=== PATIENT | male | born 1965 | race Hispanic/Latino ===

== ENCOUNTER 2023-08-19 20:17 | Inpatient (IN) | payer OTHER, SELFPAY ==
--- NOTE | ~2023-08-19 | XR_ITS ---
EXAMINATION: XR chest 1V portable 08/19/2023 21:56 INDICATION: PICC line placement PROCEDURE: AP portable chest COMPARISON: No prior studies for comparison. FINDINGS: The lungs are clear. PICC line tip in the SVC. The cardiomediastinal silhouette is within n ormal limits. There are no pleural effusions. There is no pneumothorax suspected. IMPRESSION: 1: NO ACUTE CARDIOPULMONARY DISEASE. Reviewed, dictated and finalized at location A.
--- NOTE | ~2023-08-19 | CT_ITS ---
EXAMINATION: CT abdomen pelvis wo con DATE: 08/19/2023 22:25 INDICATION: Upper abdominal pain. Elevated lipase. Nausea and vomiting. TECHNIQUE: Computed tomography (CT) of the abdomen and pelvis was performed without intravenous contr ast. The dose-length product was 228.87 mGy-cm. Automated exposure control and iterative reconstructi on technique were employed. COMPARISON: None. FINDINGS: Lung bases unremarkable. Heart size normal. No significant pleural or pericardial effusion. Pancreas is thickened with surrounding fluid and inflammation, consistent with acute pancreatitis. T he liver, spleen, adrenal glands and kidneys are unremarkable. Nonobstructive bowel gas pattern. No s ignificant vascular abnormality. No lymphadenopathy. There are severe degenerative changes at L4-5 an d L5-S1 with deformity of the endplates at L4-5. Consider discitis/osteomyelitis in the appropriate c linical setting. IMPRESSION: 1. Acute pancreatitis. 2: Severe degenerative changes at L4-5 and L5-S1 with deformity of the endplates at L4-5. Consider di scitis/osteomyelitis in the appropriate clinical setting. If there is concern for discitis, further e valuation with MRI lumbar spine without and with contrast recommended. Reviewed, dictated and finalized at location A. IMPRESSION: 1. Acute pancreatitis. 2: Severe degenerative changes at L4-5 and L5-S1 with deformity of the endplate s at L4-5. Consider discitis/osteomyelitis in the appropriate clinical setting. If there is concern for discitis, further evaluation with MRI lumbar spine wit hout and with contrast recommended.
--- NOTE | ~2023-08-19 | XR_ITS ---
EXAMINATION: XR chest 1V portable DATE: 08/22/2023 06:35 INDICATION: Acute renal insufficiency TECHNIQUE: frontal view of the chest was obtained. COMPARISON: Chest radiograph dated 08/21/2023 FINDINGS: Improvement in prior mild pulmonary edema. There is some persistent opacities at the bilateral lower lung zones which includes a small left pleural effusion. No pneumothorax. The cardiomediastinal silho uette is normal. Right internal jugular central venous catheter and right upper extremity peripherall y inserted central venous catheter (PICC), both with distal tips at the superior cavoatrial junction. IMPRESSION: 1. Resolution of prior mild pulmonary edema with additional unchanged atelectasis and/or pneumonia at the bilateral lung bases. 2. Small left pleural effusion. Reviewed, dictated and finalized at location A. IMPRESSION: 1. Resolution of prior mild pulmonary edema with additional unchanged atelectas is and/or pneumonia at the bilateral lung bases. 2. Small left pleural effusion.
--- NOTE | ~2023-08-19 | XR_ITS ---
EXAMINATION: XR abdomen obstructive series DATE: 08/22/2023 19:50 INDICATION: Constipation. TECHNIQUE: Upright and supine views of the abdomen on 3 radiographs were obtained. COMPARISON: CT abdomen and pelvis 08/19/2023 FINDINGS: There are no dilated loops of bowel. There is a small volume of stool in the colon. No free intraperitoneal gas. There are airspace opacities at the lung bases, likely atelectasis. IMPRESSION: 1. Normal bowel gas pattern. Reviewed, dictated and finalized at location E.
--- NOTE | ~2023-08-19 | XR_ITS ---
EXAMINATION: XR chest port-a-cath/central DATE: 08/28/2023 15:49 INDICATION: Status post dialysis catheter placement TECHNIQUE: frontal view of the chest was obtained. COMPARISON: Chest radiograph dated 08/27/2023 FINDINGS: Interval placement of a large-bore dual-lumen left internal jugular central venous dialysis catheter with distal tip near the superior cavoatrial junction. There are hazy opacities at the bilateral mid to lower lungs which appear more extensive but less dense than on the prior study likely represent sm all posterior layering bilateral pleural effusions now extending more cephalad due to semierect posit ioning of the patient is post prior upright position. There are a few Raymond B-lines at the periphery of the right lower lung zone consistent with minimal pulmonary edema. No pneumothorax. The cardiomed iastinal silhouette is normal. IMPRESSION: 1. No pneumothorax post placement of a left internal jugular central venous dialysis catheter with di stal tip at the superior cavoatrial junction. 2. Mild pulmonary edema and small bilateral pleural effusions. Reviewed, dictated and finalized at location A. IMPRESSION: 1. No pneumothorax post placement of a left internal jugular central venous kayleen lysis catheter with distal tip at the superior cavoatrial junction. 2. Mild pulmonary edema and small bilateral pleural effusions.
--- NOTE | ~2023-08-19 | XR_ITS ---
Portable chest x-ray Comparison: 08/22/2023 Clinical History: Cough Findings: Stable right IJ line. There is discoid bibasilar atelectasis or scarring. Cardiomediastin al silhouette is stable. Bones and soft tissues are unremarkable. Impression: Bibasilar atelectasis or scarring. Stable right IJ line. Reviewed, dictated and finalized at [facility]. Impression: Bibasilar atelectasis or scarring. Stable right IJ line.
--- NOTE | ~2023-08-19 | US_ITS ---
EXAMINATION: US biopsy renal DATE: 08/26/2023 11:56 INDICATION: Acute renal insufficiency TECHNIQUE: The procedure including the risks, benefits, and alternatives was discussed with the patie nt. Risks discussed included bleeding and infection. The patient understood the risks and agreed to p roceed. A timeout was performed to verify the patient's name, date of , and procedure to be p erformed. The skin overlying the left kidney was prepped and draped in usual sterile fashion. Anest hetic was administered with 1% lidocaine subcutaneously. An 18 gauge core biopsy needle was then use d to obtain 3 core biopsy specimens under continuous sonographic guidance. The entry site was cleaned and dressed. There were no immediate complications. FINDINGS: Ultrasound images demonstrate the needle in the kidney. IMPRESSION: 1. Ultrasound-guided random left kidney core needle biopsy. Reviewed, dictated and finalized at location A.
--- NOTE | ~2023-08-19 | XR_ITS ---
EXAMINATION: XR fl guide central line place DATE: 08/28/2023 15:26 INDICATION: Dialysis catheter placement. TECHNIQUE: 2 intraoperative fluoroscopic views of the chest were obtained. I was not present. Fluoros copy exposure time was 41 seconds. COMPARISON: Chest single view 08/27/23 FINDINGS: There is a central line tip in superior vena cava. There is a new left internal jugular raquel tral venous catheter with tip at superior cavoatrial junction. IMPRESSION: 1. New central line tip at superior cavoatrial junction. Reviewed, dictated and finalized at location E.
--- NOTE | ~2023-08-19 | XR_ITS ---
EXAMINATION: XR chest 1V portable DATE: 08/21/2023 10:34 INDICATION: Temporary dialysis catheter placement TECHNIQUE: frontal view of the chest was obtained. COMPARISON: Chest radiograph dated 08/19/2023 FINDINGS: New large-bore right internal jugular central venous catheter with distal tip at the superior cavoatr ial junction. Unchanged right upper extremity peripherally inserted central venous catheter (PICC) ti p also at the level of the superior cavoatrial junction. Lung volumes are decreased. Mild increased interstitial pattern in the lower lung zones with a few pe ripheral Raymond B-lines at the lateral left mid to lower lung consistent with mild pulmonary edema. A dditional more focal mild airspace opacities at the bilateral lung bases which could represent more f ocal pulmonary edema, atelectasis or pneumonia. No pneumothorax or definitive pleural effusion. The c ardiomediastinal silhouette is normal. IMPRESSION: 1. Right upper extremity peripherally inserted central venous catheter and newly placed large-bore ri ght internal jugular central venous catheter, both with tips at the superior cavoatrial junction. 2. Mild increased interstitial pattern with some peripheral Raymond B-lines consistent with mild pulmo nary edema. 3. Mild airspace opacities at the bilateral lung bases which could represent more focal pulmonary franklyn ma, atelectasis or pneumonia. Reviewed, dictated and finalized at location B. IMPRESSION: 1. Right upper extremity peripherally inserted central venous catheter and newl y placed large-bore right internal jugular central venous catheter, both with t ips at the superior cavoatrial junction. 2. Mild increased interstitial pattern with some peripheral Raymond B-lines cons istent with mild pulmonary edema. 3. Mild airspace opacities at the bilateral lung bases which could represent mo re focal pulmonary edema, atelectasis or pneumonia.
--- NOTE | ~2023-08-19 | CT_ITS ---
Non-contrast Head CT History: Altered mental status Technique: Axial non-contrast imaging of the brain was performed. Dose reduction technique was used on this scan by utilizing automated exposure control and iterative reconstruction technique. The dose -length product (DLP) was 605.33 mGy-cm. Findings: There is no evidence of intracranial hemorrhage, mass lesion, or acute infarct. Brain par enchyma appears normal. The ventricles and subarachnoid spaces are normal in size. The calvarium ap pears normal. The visualized paranasal sinuses and mastoid air cells are clear. Impression: No significant abnormality seen. Reviewed, dictated and finalized at location . Impression: No significant abnormality seen.
--- NOTE | ~2023-08-19 | XR_ITS ---
Portable chest x-ray Comparison: 08/24/2023 Clinical History: Acute renal insufficiency Findings: Right IJ line is unchanged. There are small bilateral pleural effusions with worsening haz y bibasilar airspace disease. Cardiomediastinal silhouette is stable. Bones and soft tissues are unr emarkable. Impression: Worsening [id number] bibasilar pulmonary edema with increasing small bilateral pleural effusion s. Stable support line. Reviewed, dictated and finalized at location M. Impression: Worsening [id number] bibasilar pulmonary edema with increasing small bila teral pleural effusions. Stable support line.
--- NOTE | ~2023-08-19 | US_ITS ---
US right upper quadrant INDICATION: Pancreatitis PROCEDURE: Realtime right upper abdominal ultrasound. COMPARISON: No prior studies for comparison. FINDINGS: The pancreas is normal without focal mass or pancreatic ductal dilation. There is mild int rahepatic biliary dilatation. Otherwise, liver echotexture is unremarkable. There is normal directio nal flow in the portal vein. The gallbladder is normal without stones, gallbladder wall thickening or pericholecystic fluid. Comm on bile duct measures 3 mm. No sonographic Hernandez's sign. IMPRESSION: 1: Mild intrahepatic biliary dilatation. Reviewed, dictated and finalized at location A.
[2023-08-19 20:23] VITALS: BP 176/83; PULSE 113; RESP 18; TEMP 36.3; O2SAT 100
[2023-08-19 20:40] LABS: Basophils Absolute Auto 0.1 K/mm3 (0.0-0.1); Basophils Percent Auto 0.4 % (0.2-1.2); Eosinophils Absolute Auto 0.1 K/mm3 (0-0.3); Eosinophils Percent Auto 0.4 % (0-4.4); Hematocrit 34.4 % (42.0-52.0); Immature Granulocyte Absolute 0.08 K/mm3 (0.00-0.031); Immature Granulocyte Percent A 0.6 % (0-0.5); Lymphocytes Absolute Auto 0.88 K/mm3 (0.9-3.2); Lymphocytes Percent Auto 6.4 % (18.3-44.2); Mean Corpuscular Hemoglobin 30.9 pg (26-34); Mean Corpuscular Volume 96.6 fl (80-100); Mean Platelet Volume 10.4 fl (7.4-10.4); Monocytes Absolute Auto 1.4 K/mm3 (0.1-0.6); Monocytes Percent Auto 10.1 % (2.6-8.5); Neutrophils Absolute Auto 11.3 K/mm3 (1.3-6.7); Neutrophils Percent Auto 82.1 % (45.5-73.1); Platelet Count Result 263 k/mm3 (150-375); Red Blood Count 3.56 M/mm3 (4.6-6.20); Red Cell Distribution Width 15.9 % (11.5-14.5); White Blood Count 13.8 K/mm3 (4.5-10.0)
[2023-08-19 20:54] LABS: Alanine Aminotransferase 20 U/L (6-50); Albumin Level 4.7 g/dL (3.5-5.1); Alkaline Phosphatase 98 U/L (38-126); Anion Gap 27 mmol/L (4-12); Aspartate Amino Transferase 28 U/L (17-59); Bilirubin,Total 0.5 mg/dL (0.2-1.3); Blood Urea Nitrogen 90 mg/dL (9-20); Calcium 10.2 mg/dL (8.4-10.2); Carbon Dioxide 6 mmol/L (22-30); Chloride 99 mmol/L (98-107); Glucose 67 mg/dL (65-110); Potassium 6.5 mmol/L (3.4-5.0); Sodium 132 mmol/L (137-145)
[2023-08-19 21:01] LABS: Estimated CRCL calculation 4 ml/min; Estimated Glomerular Filt Rate 3
[2023-08-19 21:20] LABS: Lipase 8159 U/L (23-300)
--- NOTE | 2023-08-19 21:21 | ECG_ITS ---
SEE SCANNED COPY FOR CONFIRMED REPORT MTDD
[2023-08-19 21:32] VITALS: BP 173/90; PULSE 110; RESP 23; O2SAT 100
--- NOTE | 2023-08-19 21:34 | ED_ITS ---
HPI - Abdominal Pain General Chief Complaint: Abdominal Pain Stated Complaint: abd pain, weakness Time Seen by Provider: 08/19/23 21:06 Source: patient Mode of arrival: ambulatory Limitations: no limitations History of Present Illness HPI narrative: Patient is a 57-year-old male who presents to the ED with report of abdominal pain and nausea/vomiting. Patient reports over the last 2-3 days, he has had pain across his upper abdomen. He has had profuse nausea with vomiting and dry heaving, unable to keep down any food or drink. Denies history of similar pain. Patient is currently in the area visiting from [facility]. He is a daily drinker, but states he has not drank any alcohol since Thursday. Denies previous history of withdrawal symptoms or seizures. Denies previous history of pancreatitis. He does also complain of chills, tremors, denies known fever. Denies diarrhea, constipation, rectal bleeding, melena. Patient has a PICC line in his right upper extremity due to history of osteomyelitis in his right pelvis from previous back surgery, has been receiving IV vancomycin for the last 1 month. States he finished his last infusion earlier this week. Patient did have outpatient labs drawn on Thursday and was able to show me this on his computer. Creatinine at that time was 5.7. Anion gap of 22. Bicarb 17. States he was unable to follow-up with his primary care doctor at that time due to going out of town. Related Data Allergies Allergy/AdvReac Type Severity Reaction Status Date / Time No Known Allergies Allergy Verified 08/19/23 21:33 Review of Systems Review of Systems: CONSTITUTIONAL: See HPI CARDIOVASCULAR: Denies chest pain. RESPIRATORY: Denies dyspnea. GASTROINTESTINAL: See HPI. GENITOURINARY: Denies dysuria or hematuria. MUSCULOSKELETAL: Denies back pain, extremity pain, myalgia. NEUROLOGIC: See HPI All systems reviewed & are unremarkable except as noted in HPI and below Exam Narrative: GENERAL: Ill appearing, well-nourished, non-toxic, in no acute distress. HEAD: Normocephalic, atraumatic. RESPIRATORY: Airway patent, respirations nonlabored but tachypneic. Clear to auscultation bilaterally, no rales, rhonchi, wheezing. CARDIOVASCULAR: Tachycardic with regular rhythm without murmurs, rubs, or gallops. ABDOMINAL: Soft, diffuse tenderness throughout upper abdomen, nondistended. Normoactive BS. MUSCULOSKELETAL: Moves all extremities. No gross deformities. PICC line in RUE. SKIN: Warm, dry, normal color. NEURO: A&O X3. Speech clear. Cranial nerves II-XII grossly intact. Diffuse tremor of extremities versus rigors. PSYCHIATRIC: Appropriate mood and affect. Normal interaction. Course Vital Signs Vital signs: Vital Signs Temperature 97.3 F L 08/19/23 20:23 Pulse Rate 113 H 08/19/23 20:23 Respiratory Rate 18 08/19/23 20:23 Blood Pressure 176/83 H 08/19/23 20:23 Pulse Oximetry 100 08/19/23 20:23 Oxygen Delivery Room Air 08/19/23 20:23 Temperature 97.3 F L 08/19/23 20:23 Pulse Rate 115 H 08/20/23 01:48 Respiratory Rate 12 08/20/23 01:48 Blood Pressure 158/78 H 08/20/23 01:48 Pulse Oximetry 98 08/20/23 01:48 Oxygen Delivery Room Air 08/19/23 20:23 MDM - Abdominal Pain MDM Narrative Medical decision making narrative: Patient presented to ED with several day history of upper abdominal pain, nausea, vomiting tremors. History of alcoholism. Patient tachycardic and tachypneic upon my evaluation. Oxygen stable on room air. He does appear rigorous. Laboratory studies concerning for acute renal failure with creatinine of 16.5, BUN 90. Hyperkalemia at 6.5. Bicarb markedly low at 6. Anion gap of 27. Blood glucose 67. Pattern Keeper on outpatient labs 08/17/23 was 5.7. ABG with metabol ic acidosis, pH 7.223, pCO2 19.2, bicarb 7.7. Lipase is elevated to 8159. Consistent with clinical picture. Patient reports he has not drank alcohol since Thursday. He denies previous history of withdrawal symptoms. He does appear tremulous in the ED. Will be given Ativan, CIWA protocol initiated. Thiamine initiated. Alcohol level here negative. CT abdomen pelvis is consistent with acute pancreatitis. Also shows evidence of known osteomyelitis to right pelvic region. Patient has recently completed a month long course of vancomycin through a PICC line in his right upper extremity. Hyper K treatment ordered. Patient given 2 L of fluid, 2 amps of D50, 10 units insulin, calcium gluconate, Lokelma, 2 amps of bicarb, hour long albuterol Tx. Repeat CMP post hyper K treatment, potassium 5.1, bicarb 8, anion gap 23, creatinine 15.7, BUN 85. Patient given 2 L of fluid in the ED, started on continuous normal saline at 150 cc/hour. No urine output thus far. Bladder scan around <75mL. Foster catheter placed for I&O monitoring. Discussed case with Dr. Carmona, nephrology, will consult. Feel patient can be admitted here. No indication for emergent dialysis at this time. Advised to start D5 half-normal saline with 75 mEq of bicarb at 125 cc/hour. Discussed case with Dr. Mendoza, hospitalist, accepted patient for admission. Medical Records Attestation: I reviewed the patient's medical records. Lab Data Attestation: I reviewed the patient's lab results. 08/19/23 20:32 08/20/23 00:55 Labs: Lab Results 08/19/23 08/19/23 08/19/23 Range/Units 20:31 20:32 21:56 WBC 13.8 H (4.5-10.0) K/mm3 RBC 3.56 L (4.6-6.20) M/mm3 Hgb 11.0 L (14.0-18.0) g/dL Hct 34.4 L (42.0-52.0) % MCV 96.6 (80-100) fl MCH 30.9 (26-34) pg MCHC 32.0 (32-36) g/dl RDW 15.9 H (11.5-14.5) % Plt Count 263 (150-375) k/mm3 MPV 10.4 (7.4-10.4) fl Immature Gran % (Auto) 0.6 H (0-0.5) % Neut % (Auto) 82.1 H (45.5-73.1) % Lymph % (Auto) 6.4 L (18.3-44.2) % Beckham % (Auto) 10.1 H (2.6-8.5) % Eos % (Auto) 0.4 (0-4.4) % Baso % (Auto) 0.4 (0.2-1.2) % Lymph # (Auto) 0.88 L (0.9-3.2) K/mm3 Beckham # (Auto) 1.4 H (0.1-0.6) K/mm3 Eos # (Auto) 0.1 (0-0.3) K/mm3 Baso # (Auto) 0.1 (0.0-0.1) K/mm3 Abs Immat Gran (auto) 0.08 H (0.00-0.031) K/mm3 Absolute Neuts (auto) 11.3 H (1.3-6.7) K/mm3 Absolute Nucleated RBC 0.000 (0.0-0.012) K/mm3 Nucleated RBC % 0.0 (0.0-0.2) % PT 15.6 H (11.1-14.7) Seconds INR 1.2 APTT 28.3 (22.3-36.8) Seconds Methemoglobin 0.3 (0-1.5) %THb Sodium 132 L (137-145) mmol/L Potassium 6.5 H* (3.4-5.0) mmol/L Chloride 99 (98-107) mmol/L Carbon Dioxide 6 L (22-30) mmol/L Anion Gap 27 H (4-12) mmol/L BUN 90 H (9-20) mg/dL Creatinine 16.50 H (0.7-1.3) mg/dL Estim Creat Clear Calc 4 ml/min Estimated GFR 3 L (59 - ) Glucose 67 (65-110) mg/dL POC Capillary Glucose (65-105) mg/dl Lactic Acid (0.7-2.0) mmol/L Calcium 10.2 (8.4-10.2) mg/dL Phosphorus 6.7 H (2.5-4.5) mg/dL Magnesium 2.5 H (1.6-2.3) mg/dL Total Bilirubin 0.5 (0.2-1.3) mg/dL AST 28 (17-59) U/L ALT 20 (6-50) U/L Alkaline Phosphatase 98 (38-126) U/L Total Protein 8.0 (6.3-8.2) g/dL Albumin 4.7 (3.5-5.1) g/dL Lipase 8159 H (23-300) U/L Urine Color Urine Appearance Urine pH Ur Specific [place] Urine Protein Urine Glucose (UA) Urine Ketones Ur Blood (Man) Urine Nitrate Urine Bilirubin Urine Urobilinogen Leukocyte Esterase Rfl Ethyl Alcohol < 10 (<10) mg/dL 08/19/23 08/19/23 08/20/23 Range/Units 22:39 23:27 00:55 WBC (4.5-10.0) K/mm3 RBC (4.6-6.20) M/mm3 Hgb (14.0-18.0) g/dL Hct (42.0-52.0) % MCV (80-100) fl MCH (26-34) pg MCHC (32-36) g/dl RDW (11.5-14.5) % Plt Count (150-375) k/mm3 MPV (7.4-10.4) fl Immature Gran % (Auto) (0-0.5) % Neut % (Auto) (45.5-73.1) % Lymph % (Auto) (18.3-44.2) % Beckham % (Auto) (2.6-8.5) % Eos % (Auto) (0-4.4) % Baso % (Auto) (0.2-1.2) % Lymph # (Auto) (0.9-3.2) K/mm3 Beckham # (Auto) (0.1-0.6) K/mm3 Eos # (Auto) (0-0.3) K/mm3 Baso # (Auto) (0.0-0.1) K/mm3 Abs Immat Gran (auto) (0.00-0.031) K/mm3 Absolute Neuts (auto) (1.3-6.7) K/mm3 Absolute Nucleated RBC (0.0-0.012) K/mm3 Nucleated RBC % (0.0-0.2) % PT (11.1-14.7) Seconds INR APTT (22.3-36.8) Seconds Methemoglobin (0-1.5) %THb Sodium 134 L (137-145) mmol/L Potassium 5.1 H (3.4-5.0) mmol/L Chloride 103 (98-107) mmol/L Carbon Dioxide 8 L (22-30) mmol/L Anion Gap 23 H (4-12) mmol/L BUN 85 H (9-20) mg/dL Creatinine 15.70 H (0.7-1.3) mg/dL Estim Creat Clear Calc 4 ml/min Estimated GFR 3 L (59 - ) Glucose 109 (65-110) mg/dL POC Capillary Glucose 226 H (65-105) mg/dl Lactic Acid 3.3 H (0.7-2.0) mmol/L Calcium 9.3 (8.4-10.2) mg/dL Phosphorus (2.5-4.5) mg/dL Magnesium (1.6-2.3) mg/dL Total Bilirubin 0.4 (0.2-1.3) mg/dL AST 21 (17-59) U/L ALT 18 (6-50) U/L Alkaline Phosphatase 78 (38-126) U/L Total Protein 6.0 L (6.3-8.2) g/dL Albumin 3.9 (3.5-5.1) g/dL Lipase (23-300) U/L Urine Color Urine Appearance Urine pH Ur Specific [place] Urine Protein Urine Glucose (UA) Urine Ketones Ur Blood (Man) Urine Nitrate Urine Bilirubin Urine Urobilinogen Leukocyte Esterase Rfl Ethyl Alcohol (<10) mg/dL 08/20/23 08/20/23 08/20/23 Range/Units 01:21 02:54 03:07 WBC (4.5-10.0) K/mm3 RBC (4.6-6.20) M/mm3 Hgb (14.0-18.0) g/dL Hct (42.0-52.0) % MCV (80-100) fl MCH (26-34) pg MCHC (32-36) g/dl RDW (11.5-14.5) % Plt Count (150-375) k/mm3 MPV (7.4-10.4) fl Immature Gran % (Auto) (0-0.5) % Neut % (Auto) (45.5-73.1) % Lymph % (Auto) (18.3-44.2) % Beckham % (Auto) (2.6-8.5) % Eos % (Auto) (0-4.4) % Baso % (Auto) (0.2-1.2) % Lymph # (Auto) (0.9-3.2) K/mm3 Beckham # (Auto) (0.1-0.6) K/mm3 Eos # (Auto) (0-0.3) K/mm3 Baso # (Auto) (0.0-0.1) K/mm3 Abs Immat Gran (auto) (0.00-0.031) K/mm3 Absolute Neuts (auto) (1.3-6.7) K/mm3 Absolute Nucleated RBC (0.0-0.012) K/mm3 Nucleated RBC % (0.0-0.2) % PT (11.1-14.7) Seconds INR APTT (22.3-36.8) Seconds Methemoglobin (0-1.5) %THb Sodium (137-145) mmol/L Potassium (3.4-5.0) mmol/L Chloride (98-107) mmol/L Carbon Dioxide (22-30) mmol/L Anion Gap (4-12) mmol/L BUN (9-20) mg/dL Creatinine (0.7-1.3) mg/dL Estim Creat Clear Calc ml/min Estimated GFR (59 - ) Glucose (65-110) mg/dL POC Capillary Glucose 100 (65-105) mg/dl Lactic Acid Pending (0.7-2.0) mmol/L Calcium (8.4-10.2) mg/dL Phosphorus (2.5-4.5) mg/dL Magnesium (1.6-2.3) mg/dL Total Bilirubin (0.2-1.3) mg/dL AST (17-59) U/L ALT (6-50) U/L Alkaline Phosphatase (38-126) U/L Total Protein (6.3-8.2) g/dL Albumin (3.5-5.1) g/dL Lipase (23-300) U/L Urine Color Pending Urine Appearance Pending Urine pH Pending Ur Specific [place] Pending Urine Protein Pending Urine Glucose (UA) Pending Urine Ketones Pending Ur Blood (Man) Pending Urine Nitrate Pending Urine Bilirubin Pending Urine Urobilinogen Pending Leukocyte Esterase Rfl Pending Ethyl Alcohol (<10) mg/dL Urine Characteristics Cloudy ABG Data ABG results: 08/19/23 21:56 Puncture Site Left radial ABG pH 7.223 L* ABG pCO2 19.2 L* ABG pO2 95.7 ABG PO2/FiO2 Ratio 4.56 ABG HCO3 7.7 L ABG O2 Saturation 96.2 ABG O2 Content 16.4 ABG Base Excess -17.9 A-a Gradient 31.0 Oxyhemoglobin 95.5 Carboxyhemoglobin 0.3 Reduced Hemoglobin 3.9 Total Hemoglobin 12.1 O2 Delivery Device Not Reportable O2 Liters/Min Not Reportable FiO2 21 Attestation: I personally reviewed and interpreted this ABG as follows: Imaging Data Attestation: I personally reviewed and interpreted this imaging study as follows: Radiologist's impression: ITS Impressions Chest X-Ray 08/19/23 22:00 IMPRESSION: 1: NO ACUTE CARDIOPULMONARY DISEASE. Abdomen/Pelvis CT 08/19/23 22:34 IMPRESSION: 1. Acute pancreatitis. 2: Severe degenerative changes at L4-5 and L5-S1 with deformity of the endplates at L4-5. Consider discitis/osteomyelitis in the appropriate clinical setting. If there is concern for discitis, further evaluation with MRI lumbar spine without and with contrast recommended. ECG Data EKG #1: Attestation: I personally reviewed and interpreted this ECG as follows: ECG completion date: 08/19/23 ECG completion time: 21:40 tachycardia (105), sinus rhythm and non-specific ST changes Discharge Plan Discharge Clinical Impression: Acute renal failure, Metabolic acidosis, Acute hyperkalemia, Acute pancreatiti s, Alcoholism, Lactic acidosis Patient Disposition: Still a Patient Condition: Serious
[2023-08-19 21:42] LABS: Ethanol < 10 mg/dL (<10); Magnesium 2.5 mg/dL (1.6-2.3); Phosphorus 6.7 mg/dL (2.5-4.5)
[2023-08-19 21:47] LABS: INR 1.2; Prothrombin Time 15.6 Seconds (11.1-14.7)
[2023-08-19 21:48] LABS: Partial Thromboplastin Time 28.3 Seconds (22.3-36.8)
[2023-08-19 22:14] LABS: Base Excess ABG -17.9 mEq/l (+/-2.0); Carboxyhemoglobin 0.3 % THb (0-2.0); Fractional Inspired Oxygen 21 %; HCO3 ABG 7.7 mEq/l (22.0-26.0); Methemoglobin ABG 0.3 %THb (0-1.5); Oxygen Content ABG 16.4 %vol (16.0-22.0); Oxygen Saturation ABG 96.2 % (95.0-100.0); Oxyhemoglobin 95.5 % THb (90.0-100.0); PO2 ABG 95.7 mmHg (80.0-100.0); PO2 FiO2 Ratio Arterial Blood 4.56 %; Reduced Hemoglobin 3.9 %THb (0-5.0); Total Hemoglobin 12.1 g/dL (12.0-18.0)
[2023-08-19 22:16] LABS: Modified Allen's Test Pass; PCO2 ABG 19.2 mmHg (35.0-45.0); Site Drawn LEFT RADIAL
[2023-08-19 22:17] LABS: pH ABG 7.223 (7.350-7.450)
[2023-08-19] MEDS: ALBUTEROL SULFATE NEB 2.5 MG/3 ML INH 10 MG INHALATION (22:22)
[2023-08-19 22:30] VITALS: BP 152/77; PULSE 122; RESP 13; O2SAT 100
[2023-08-19] MEDS: SODIUM ZIRCONIUM CYCLOSILICATE 10 GM POWD.PACK PO (22:45)
[2023-08-19] MEDS: ONDANSETRON INJ 4 MG/2 ML VIAL IV PUSH (22:45)
[2023-08-19] MEDS: SODIUM BICARBONATE 8.4% 50 MEQ/50 ML SYRINGE IV PUSH ×2 (22:49→22:54)
[2023-08-19] MEDS: DEXTROSE 50% 25 GM/50 ML SYRINGE IV PUSH ×2 (22:49→22:54)
[2023-08-19] MEDS: SODIUM CHLORIDE 0.9% IV 1,000 ML 999 ML IV CONT ×2 (22:58)
[2023-08-19] MEDS: CALCIUM GLUCONATE 1,000 MG/10 ML VIAL 1000 MG IV PUSH (22:58)
[2023-08-19] MEDS: LORazepam INJ (*CRX) 2 MG/ML VIAL IV PUSH (23:05)
[2023-08-19] MEDS: INSULIN HUMAN REGULAR (*BKC) 100 UNITS/ML 10 UNITS IV PUSH (23:06)
[2023-08-19] MEDS: THIAMINE 500 MG/NS 100 ML 500 MG/100 ML BAG 200 MG IVPB (23:18)
[2023-08-19 23:24] LABS: Lactic Acid Reflex 3.3 mmol/L (0.7-2.0)
[2023-08-19 23:31] LABS: Glucose Point of Care 226 mg/dl (65-105)
[2023-08-20] VITALS (14 sets, daily range): BP systolic 136–165; BP diastolic 65–80; PULSE 106–122; RESP 12–24; TEMP 36.3–36.7; O2SAT 96–100; BMI 24.7
[2023-08-20 01:20] LABS: Alanine Aminotransferase 18 U/L (6-50); Albumin Level 3.9 g/dL (3.5-5.1); Alkaline Phosphatase 78 U/L (38-126); Anion Gap 23 mmol/L (4-12); Aspartate Amino Transferase 21 U/L (17-59); Bilirubin,Total 0.4 mg/dL (0.2-1.3); Blood Urea Nitrogen 85 mg/dL (9-20); Calcium 9.3 mg/dL (8.4-10.2); Carbon Dioxide 8 mmol/L (22-30); Chloride 103 mmol/L (98-107); Glucose 109 mg/dL (65-110); Potassium 5.1 mmol/L (3.4-5.0); Sodium 134 mmol/L (137-145)
[2023-08-20 01:23] LABS: Glucose Point of Care 100 mg/dl (65-105)
[2023-08-20] MEDS: SODIUM CHLORIDE 0.9% IV 1,000 ML 150 ML IV CONT (01:40)
[2023-08-20 01:57] LABS: Estimated CRCL calculation 4 ml/min; Estimated Glomerular Filt Rate 3
[2023-08-20 02:08] LABS: Reflex Lactic Acid Yes or No Add Lactic
[2023-08-20] MEDS: SODIUM BICARBONATE 8.4% 75 MEQ in DEXTROSE 5%/0.45% SOD CHL 1,000 ML 125 MEQ IV CONT ×3 (02:38→19:15)
[2023-08-20 03:14] LABS: Glucose Point of Care 75 mg/dl (65-105)
[2023-08-20 03:22] LABS: Appearance Urine Clear (Clear); Bacteria Urine None Seen /hpf; Bilirubin Urine Negative (Negative); Blood Urine 1+ (Negative); Color Urine Yellow (Yellow); Glucose Urine UA Negative (Negative); Ketones Urine 1+ mg/dL (Negative); Leukocyte Esterase Ur Negative LEU/UL (Negative); Need Manual Microscopic Reviewed; Nitrate Urine Negative (Negative); Protein Urine 4+ mg/dL (Negative); RBC Urine 0-2 /hpf (0-2); Specific Grav Ur 1.015 (1.001-1.035); Squamous Epithelial Cell Urine None Seen /hpf (Few); Urobilinogen Urine 0.2 mg/dL (<2.0); WBC Urine 0-5 /hpf (0-3)
[2023-08-20 03:24] LABS: Add Urine Microscopic? YES
--- NOTE | 2023-08-20 03:35 | PC.NURSE ---
Attempted to call report. Was told nurse will have to call me back.
[2023-08-20 03:53] LABS: Lactic Acid 5.4 mmol/L (0.7-2.0)
--- NOTE | 2023-08-20 04:28 | ADMGEN ---
This patient, Camacho Sidhu, was admitted to IMU Room 204-01 at 0420 on 08/19/2023. Patient/family oriented to hospital policies and general routines including ID bracelet, bed and alarms, visiting hours, pain management, procedures, bathroom and other care routines, personal items, smoking policy, room service/diet, and visiting hours. Information on how to activate the Rapid Response Team has been discussed. Patient/Family are encouraged to report perceived risks to care and to ask questions if they do not understand what they are told or what they should do.
[2023-08-20 04:31] LABS: Glucose Point of Care 77 mg/dl (65-105)
[2023-08-20 05:08] LABS: Basophils Percent Auto 0.2 % (0.2-1.2); Eosinophils Percent Auto 0.3 % (0-4.4); Hematocrit 31.7 % (42.0-52.0); Hemoglobin 9.9 g/dL (14.0-18.0); Immature Granulocyte Absolute 0.07 K/mm3 (0.00-0.031); Immature Granulocyte Percent A 0.5 % (0-0.5); Lymphocytes Absolute Auto 0.67 K/mm3 (0.9-3.2); Lymphocytes Percent Auto 5.2 % (18.3-44.2); Mean Corpuscular HGB Conc 31.2 g/dl (32-36); Mean Corpuscular Hemoglobin 30.8 pg (26-34); Mean Corpuscular Volume 98.8 fl (80-100); Mean Platelet Volume 10.3 fl (7.4-10.4); Monocytes Absolute Auto 1.5 K/mm3 (0.1-0.6); Monocytes Percent Auto 11.6 % (2.6-8.5); Neutrophils Absolute Auto 10.6 K/mm3 (1.3-6.7); Neutrophils Percent Auto 82.2 % (45.5-73.1); Platelet Count Result 214 k/mm3 (150-375); Red Blood Count 3.21 M/mm3 (4.6-6.20); Red Cell Distribution Width 15.9 % (11.5-14.5); White Blood Count 12.9 K/mm3 (4.5-10.0)
[2023-08-20 05:17] LABS: Alveolar/Arterial O2 Gradient 31.3 mmHg; Base Excess ABG -17.5 mEq/l (+/-2.0); Carboxyhemoglobin 0.2 % THb (0-2.0); Fractional Inspired Oxygen 21 %; HCO3 ABG 9.1 mEq/l (22.0-26.0); Methemoglobin ABG 0.4 %THb (0-1.5); Oxygen Saturation ABG 94.9 % (95.0-100.0); Oxyhemoglobin 94.5 % THb (90.0-100.0); PCO2 ABG 24.7 mmHg (35.0-45.0); PO2 ABG 88.9 mmHg (80.0-100.0); PO2 FiO2 Ratio Arterial Blood 4.23 %; Reduced Hemoglobin 4.9 %THb (0-5.0); Total Hemoglobin 11.2 g/dL (12.0-18.0)
[2023-08-20 05:20] LABS: Device ROOM AIR; Modified Allen's Test Pass; Site Drawn LEFT RADIAL; pH ABG 7.185 (7.350-7.450)
[2023-08-20] MEDS: chlordiazePOXIDE (*CRX) 25 MG CAPSULE 50 MG PO (05:23)
[2023-08-20] MEDS: MORPHINE SULFATE (*CRX) 4 MG/ML INJ IV PUSH ×2 (05:24→09:16)
[2023-08-20] MEDS: CENTRAL LINE FLUSH 10 ML IV PUSH ×3 (05:24→21:25)
--- NOTE | 2023-08-20 05:26 | PC.NURSE ---
Pt states that he wants his friends, Radha and Moses to make his medical decisions if he is unable to. Staff explained that next of kin should be the decision maker. Pt states that his son, Erasmo, is his next of kin. States that his son would not understand pt's medical condition. States that his son and friends are well acquainted and can make decisions together. Chart updated with emergency contact information.
[2023-08-20 05:27] LABS: Alanine Aminotransferase 17 U/L (6-50); Alkaline Phosphatase 86 U/L (38-126); Anion Gap 27 mmol/L (4-12); Aspartate Amino Transferase 21 U/L (17-59); Bilirubin,Total 0.5 mg/dL (0.2-1.3); Blood Urea Nitrogen 87 mg/dL (9-20); Calcium 9.8 mg/dL (8.4-10.2); Carbon Dioxide 6 mmol/L (22-30); Chloride 104 mmol/L (98-107); Creatine Kinase 54 U/L (55-170); Glucose 79 mg/dL (65-110); Potassium 5.4 mmol/L (3.4-5.0); Sodium 137 mmol/L (137-145)
--- NOTE | 2023-08-20 05:37 | PC.NURSE ---
patient and RN attempted to call friend Lupe via patient's cell phone to update her on his stay. Lupe's cell went to voicemail that was full.
[2023-08-20 05:48] LABS: Estimated CRCL calculation 4 ml/min; Estimated Glomerular Filt Rate 3
[2023-08-20 05:53] LABS: Creatinine Urine 68.1 mg/dL; Urea Random Urine 284 MG/DL
[2023-08-20 05:55] LABS: Lipase 12326 U/L (23-300)
[2023-08-20 05:55] LABS: Sodium Urine Random 73 meq/L
[2023-08-20 06:02] LABS: Total Protein Urine Random > 600 mg/dL
[2023-08-20 06:08] LABS: Hepatitis B Surface Antigen Negative (Negative)
[2023-08-20 06:25] LABS: Hepatitis B Surface Anti Res Negative
[2023-08-20 06:36] LABS: Glucose Point of Care 89 mg/dl (65-105)
[2023-08-20 06:54] LABS: MRSA (PCR) NOT DETECTED (NOT DETECTE)
[2023-08-20 07:46] LABS: Eosinophil Urine None Seen % (None Seen); Urine Eos QC 2nd Tech Confirmed
[2023-08-20] MEDS: THIAMINE HCL 200 MG/2 ML VIAL 100 MG IV PUSH (09:17)
--- NOTE | 2023-08-20 09:53 | P.HP_ITS ---
H&P: HPI History of Present Illness Date/Time: 08/20/23 09:53 Chief Complaint: Abdominal pain Narrative: 57yo male with alcoholism, HTN, DM and currently undergoing treatment for osteomyelitis who presents with abdominal pain. Patient is alert and oriented but has mild confusion when trying to provide a linear history. He is from [facility] and is in this area for work. He states that he feels ?foggy? but d enies feeling confused. Patient underwent microscopic lumbar back surgery L5-S1 in March 2023 due to bilateral sciatic nerve pain. Patient did have a fall at home but it is unclear on exactly when this was. No fractures noted but he developed increasing pain in the right lower extremity radiating from pelvic area and back. The left leg pain has improved. He was treated with gabapentin 300 mg t.i.d.. He had does have diabetes with neuropathic pain as well. Pain continue to worsen in the back and right leg any underwent further evaluation. He was found have lumbar osteomyelitis and was hospitalized in June. He ultimately had a PICC line placed and was discharged on vancomycin and cefepime. Antibiotics were supposed and on August 14 but he has missed a few doses due to his work. 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 Patient also has heavy alcohol use. He has been drinking heavily since he was young. No history of of withdrawals. No history of seizures. He normally drinks 1.5L of spirits per day but has cut back since starting the IV abx but still binge drinks. He is also on marijuana gummies but denies other drug use. His last drink was 08/16/23. He began to have abdominal pain about 4-5 days ago with nausea, vomiting, dry heaves, diarrhea, chill and tremors. Occasional red blood in the palomo but this is long standing and intermittent. No hematochezia or hemorrhoids. Patient did have outpatient labs on with Creatinine 5.7.? Anion gap of 22.? Bicarb 17.?No hx of kidney disease. He presented to the ED for evaluation. . In the ED, patient was afebrile. Blood pressure 176/83 pulse 113. Was not hypoxic. Lactic acid was 5.4. WBC 13.8 K, INR 1.2, sodium 132, potassium 6.5 with BUN 90 and creatinine 16.5. Lipase was elevated and has climbed to 12 K. LFTs normal. Total CK 54. ABG 7.22/ on room air. UA shows 14+ blood, 1+ ketones and 1+ blood otherwise negative. Protein to creatinine ratio is 8g, urine eosinophils were negative. MRSA nasal swab was negative. Alcohol is less than 10. Chest x-ray was clear. CT of the abdomen pelvis showed acute pancreatitis and severe degenerative changes at L4-5 and L5-1 with deformity at the endplates of L4-5 consistent with diskitis/osteomyelitis. Liver was normal. No mention of the gallbladder. CT the brain showed no significant abnormalities. Patient was treated appropriately for the hyperkalemia. Was started on IV fluids with bicarb. Ativan given once. Thiamine started. He was admitted for further care. Review of Systems Review of Systems: All systems reviewed & are unremarkable except as noted in HPI and below PMFSH Past Medical History Medical History (Updated 08/20/23 @ 10:44 by Levi Arana MD) Alcoholism Diabetes mellitus Diabetic neuropathy Essential hypertension Hx of osteomyelitis Lumbar spine Jun 2023 Hyperlipidemia Sciatica associated with disorder of lumbar spine Surgical History Surgical History (Updated 08/20/23 @ 10:22 by Lvei Arana MD) History of lumbar surgery Family History Family History (Updated 08/20/23 @ 10:30 by Levi Arana MD) Mother Diabetes mellitus Father Alcoholism Social History Social History (Updated 08/20/23 @ 10:29 by Levi Arana MD) Social History: Alcohol use as above. He lives in [facility]. He is . He lives alone. He has dogs. He wishes to make himself a DNR although currently he is full code. Given his mild confusion, will continue full code status until he is more awake and alert enough to make informed decision. He nominates his son to be the individual who would make medical decisions for him if he is unable. Hx of MDMA use when young but no hx of IVDU. Smoking status: Light tobacco smoker Tobacco type: cigars Alcohol intake: current Drinks per week: 100 Do You Feel Safe in your Home?: Yes Lack of Transportation: No Lack of Food: Never True Current Housing: I Have Housing Concerned About Future Housing: No Difficulty Paying Gas/Electric Bills: No Difficulty Paying for Meds: No Currently Unemployed: No Education: Decline to Answer Difficulty w/ Childcare or Family Care: No Spiritual care concerns: No Meds Home Medications and Allergies Home Medications Medication Instructions Recorded Confirmed Type gabapentin 300 mg capsule 300 mg PO TID 08/20/23 08/20/23 History losartan 50 mg-hydrochlorothiazide 1 tablet PO DAILY 08/20/23 08/20/23 History 12.5 mg tablet metformin 500 mg tablet,extended 1 mg PO BID 08/20/23 08/20/23 History release 24 hr rosuvastatin 20 mg tablet 20 mg PO DAILY 08/20/23 08/20/23 History Allergies Allergy/AdvReac Type Severity Reaction Status Date / Time No Known Allergies Allergy Verified 08/19/23 21:33 Vital Signs Vital Signs - 24 hr 08/19/23 20:23 08/19/23 21:32 08/19/23 22:30 Temperature 97.3 F L Pulse Rate 113 H 110 H 122 H Respiratory Rate 18 23 H 13 Blood Pressure 176/83 H 173/90 H 152/77 H Pulse Oximetry 100 100 100 Oxygen Delivery Room Air 08/20/23 00:30 08/20/23 01:48 08/20/23 03:52 Temperature Pulse Rate 122 H 115 H 110 H Respiratory Rate 17 12 19 Blood Pressure 157/79 H 158/78 H Pulse Oximetry 98 98 98 Oxygen Delivery 08/20/23 04:57 08/20/23 04:22 08/20/23 05:00 Temperature 97.8 F Pulse Rate 115 H 116 H Respiratory Rate 24 H Blood Pressure 165/71 H Pulse Oximetry 98 Oxygen Delivery Room Air 08/20/23 06:00 08/20/23 08:00 Temperature 97.3 F L Pulse Rate 110 H 106 H Respiratory Rate 16 Blood Pressure 136/65 Pulse Oximetry 97 Oxygen Delivery Exam Narrative: AF 97.3 136/65 106 16 97% ra Gen - well-nourished, well-developed male in no acute respiratory distress who is nontoxic-appearing lying semi recumbent in bed HEENT - normocephalic. Atraumatic. Pupils equal round and reactive. Inability with upward gaze. Sclera clear and anicteric. Nares patent. Oropharynx was poorly visualized. No oral lesions. Tachy mucous membranes. Tongue was midline. Palate hselia symmetrically. No facial asymmetry. Neck - neck was supple. No dominant adenopathy, thyromegaly or masses. 2+ carotid upstrokes without bruits. Chest - bibasilar inspiratory crackles. No wheezes. nml RR CV - heart was regular rate and rhythm. S1-S2. No murmurs gallops or rubs. Abd - abdomen was soft. Hypoactive BS. Diffusely tender without guarding. No rebound Ext - no clubbing, cyanosis or edema. 2+ DP pulses bilaterally. PICC line noted in the right upper extremity. Neuro - patient is awake, mildly obtunded and oriented x4 but has confusion providing hx. Strength is 5/5 in both upper and lower extremities. Cranial nerves as above o/w intact. Speech is clear. Psych - Patient is pleasant and cooperative. Skin - warm and dry. No rashes noted. H&P: Results Labs Labs: Short CBC 08/19/23 08/20/23 Range/Units 20:32 04:55 WBC 13.8 H 12.9 H (4.5-10.0) K/mm3 Hgb 11.0 L 9.9 L (14.0-18.0) g/dL Hct 34.4 L 31.7 L (42.0-52.0) % Plt Count 263 214 (150-375) k/mm3 BMP 08/19/23 08/20/23 08/20/23 20:32 00:55 04:55 Sodium 132 L 134 L 137 Potassium 6.5 H* 5.1 H 5.4 H Chloride 99 103 104 Carbon Dioxide 6 L 8 L 6 L BUN 90 H 85 H 87 H Creatinine 16.50 H 15.70 H 15.90 H Glucose 67 109 79 Calcium 10.2 9.3 9.8 Cardiac Enzymes 08/20/23 Range/Units 04:55 Total Creatine Kinase 54 L (55-170) U/L Liver Function 08/19/23 08/20/23 08/20/23 Range/Units 20:32 00:55 04:55 Total Bilirubin 0.5 0.4 0.5 (0.2-1.3) mg/dL AST 28 21 21 (17-59) U/L ALT 20 18 17 (6-50) U/L Alkaline Phosphatase 98 78 86 (38-126) U/L Albumin 4.7 3.9 4.0 (3.5-5.1) g/dL Urine 08/20/23 Range/Units 02:54 Urine Color Yellow (Yellow) Urine Appearance Clear (Clear) Urine pH 6.0 (5.0-9.0) Ur Specific [place] 1.015 (1.001-1.035) Urine Protein 4+ H (Negative) mg/dL Urine Glucose (UA) Negative (Negative) mg/dL Assessment and Plan Assessment and plan (1) Acute hyperkalemia: Code(s): E87.5 - Hyperkalemia Status: Acute Assessment and Plan: Patient presents with abdominal pain and found to have acute kidney injury and Hyperkalemia at 6.5. SANG most likely the etiology of his hyperkalemia. Potassium was treated appropriately. Potassium has improved but has climbed back to 5.4. Repeat labs today. He may need dialysis to control electrolyte abnormalities. (2) Acute renal failure: Qualifiers: Acute renal failure type: unspecified Qualified Code(s): N17.9 - Acute kidney failure, unspecified Code(s): N17.9 - Acute kidney failure, unspecified Status: Acute Assessment and Plan: Patient presumably has no underlying kidney problems. Creatinine was 5.7 few days prior to admission on routine labs. Creatinine here was 16.5 with a BUN of 90. He had hyperkalemia and severe metabolic gap acidosis. Chest x-ray is clear and no evidence of fluid overload clinically. Patient has been started on a bicarb drip and potassium was treated appropriately. Potassium has improved. Metabolic acidosis is about the same. Renal function is unchanged. Urine output essentially anuric. Nephrology has been consulted. Etiology unclear. Hepatitis be antigen and antibody are negative. Total CK was normal. He has significant proteinuria noted (though TP and albumin normal). Urine studies consistent with intrinsic renal disease. Could be related to recently starting gabapentin. He is also on metformin, losartan and HCTZ which all probably contributed to these findings. Patient also on long-term IV antibiotics with cefepime and vancomycin also which could be causing renal failure. Patient also with nausea, vomiting and diarrhea again probably accelerating his worsening renal failure. Patient most likely will need to start dialysis. Continue sodium bicarb. Repeat labs today. Continue workup for etiology of acute kidney injury Monitor urine output, renal function and electrolytes. (3) Acute pancreatitis: Qualifiers: Acute pancreatitis complication: unspecified Pancreatitis type: unspecified pancreatitis type Qualified Code(s): K85.90 - Acute pancreatitis without necrosis or infection, unspecified Code(s): K85.90 - Acute pancreatitis without necrosis or infection, unspecified Status: Acute Assessment and Plan: Patient presents with abdominal pain, nausea, vomiting and diarrhea. Lipase was elevated on admission and has climbed to 12.3K Most likely related to his alcoholism although he does mention that he is decrease his alcohol use over the past few months since being on antibiotics. CT does not mention gallbladder disease or cholelithiasis. Will check right upper quadrant ultrasound. Check triglycerides NPO status. Continue IV fluids. Start clear liquids once lipase started to trend downward. (4) Metabolic acidosis: Code(s): E87.20 - Acidosis, unspecified Status: Acute Assessment and Plan: Patient with severe metabolic gap acidosis. This was noted in the outpatient setting as well. Most likely related to his severe renal disease and lactic acidosis He is currently on IV fluids with bicarb. Continue IV fluids. Repeat lactic level. Most likely will need dialysis. (5) Lactic acidosis: Code(s): E87.20 - Acidosis, unspecified Status: Acute Assessment and Plan: Patient with severe lactic acidosis to 5.4. Was likely related to above. Blood cultures collected given that he has PICC line in place and has been missing doses of his antibiotics Also related to metformin which will be held. (6) Alcoholism: Code(s): F10.20 - Alcohol dependence, uncomplicated Status: Acute Assessment and Plan: Patient with history of longstanding alcoholism. LFTs normal. Liver appears normal by CT. INR 1.2 and protein level normal to suggest good intrinsic function. Start thiamine and folate. CIWA protocol started. Will have Librium and Ativan available as needed for signs/symptoms of withdrawal. Will hold on scheduling benzodiazepines given his altered mental status. (7) Altered mental status: Code(s): R41.82 - Altered mental status, unspecified Status: Acute Assessment and Plan: Patient is mildly obtunded but awake and mostly oriented. He does have difficulty providing a detailed history as mentioned above. CT the brain showing no acute findings. Suspect this is related to uremia and metabolic acidosis. Follow clinically for now. (8) Diabetes mellitus: Code(s): E11.9 - Type 2 diabetes mellitus without complications Status: Acute Assessment and Plan: Patient with history of diabetes. Will check A1c. Place on sliding scale protocol with hypoglycemia protocol. (9) Essential hypertension: Code(s): I10 - Essential (primary) hypertension Status: Acute Assessment and Plan: Patient with essential hypertension. Blood pressure was elevated on admission but has improved. Will hold losartan and HCTZ. Continue to follow. Hydralazine p.r.n. (10) Hx of osteomyelitis: Code(s): Z87.39 - Personal history of other diseases of the musculoskeletal system and connective tissue Status: Acute Assessment and Plan: Patient with a history of lumbar spine osteomyelitis. This may have been after his lumbar surgery in March. He has been on IV antibiotics since June. Given the concerned that his abx may be contributing to his renal failure, will stop IV antibiotics at this time and monitor Check vancomycin level. Follow up on BCx results Plan DVT prophylaxis -SCDs Code status -full. Will clarify with patient once he is more awake and alert.
[2023-08-20 12:16] LABS: Alanine Aminotransferase 18 U/L (6-50); Albumin Level 3.5 g/dL (3.5-5.1); Alkaline Phosphatase 77 U/L (38-126); Anion Gap 20 mmol/L (4-12); Aspartate Amino Transferase 22 U/L (17-59); Bilirubin,Total 0.3 mg/dL (0.2-1.3); Blood Urea Nitrogen 86 mg/dL (9-20); Calcium 9.1 mg/dL (8.4-10.2); Carbon Dioxide 12 mmol/L (22-30); Chloride 102 mmol/L (98-107); Glucose 91 mg/dL (65-110); Potassium 5.3 mmol/L (3.4-5.0); Sodium 134 mmol/L (137-145)
[2023-08-20] MEDS: FOLIC ACID 1 MG/0.2 ML INJ IV PUSH (12:19)
[2023-08-20] MEDS: PANTOPRAZOLE SODIUM IV 40 MG VIAL IV PUSH (12:19)
[2023-08-20 12:22] LABS: Complement C3 54 mg/dL (88-165)
[2023-08-20 12:28] LABS: Lactic Acid Reflex 2.9 mmol/L (0.7-2.0)
[2023-08-20 12:31] LABS: Vancomycin Random 43.1 ug/mL (10-20)
[2023-08-20 12:36] LABS: Estimated CRCL calculation 4 ml/min; Estimated Glomerular Filt Rate 3
[2023-08-20 12:59] LABS: Creatine Kinase 45 U/L (55-170); Magnesium 2.2 mg/dL (1.6-2.3); Phosphorus 7.3 mg/dL (2.5-4.5)
[2023-08-20 13:05] LABS: Hepatitis C Virus Antibody Negative (Negative)
[2023-08-20 13:14] LABS: Cholesterol 77 mg/dL (0-200); HDL Direct 27 mg/dL; Triglycerides 109 mg/dL (<150)
[2023-08-20 13:15] LABS: Procalcitonin 1.6 ng/mL
[2023-08-20 13:24] LABS: LDL Cholesterol Direct 42 mg/dL
--- NOTE | 2023-08-20 13:35 | P.CONNP_ITS ---
Assessment and Plan Assessment and plan (1) SANG (acute kidney injury): Code(s): N17.9 - Acute kidney failure, unspecified Status: Acute Assessment and Plan: * assumin normal renal function at baseline * however, creatinine noted to be elevated at 5.7mg/dl several days ago prior to admission * creatinine on admission 16.5mg/dl associated with hyperkalemia and metabolic acidosis * evaluation to date: * CT of abd/pelvis - kidneys unremarkable * CPK okay * urine electrolytes non-prerena; * urine eosinophils negative * proteinuria noted * minimal urine output noted since admission * confusion/AMS may be related to uremia as well * suspect multifactorial etiology: * secondary to antibiotics (?) - high vancomycin level noted * ongoing use of metformin + ARB + HCTZ prior to admission * pancreatitis * nausea/vomiting/diarrhea * prerenal factors * other? * on bicarb gtt to help with hyperkalemia and acidosis * check serologies as well * follow repeat labs and UOP * suspect will need REHAB CARE ASSISTANT/dialysis (probably more so for clearance of the uremic toxins but this would also help his acidosis) (2) Acute hyperkalemia: Code(s): E87.5 - Hyperkalemia Status: Acute Assessment and Plan: * improvement with medical management * bicarb gtt should help as well * lokelma PRN * follow trend of potassium levels (3) Metabolic acidosis: Code(s): E87.20 - Acidosis, unspecified Status: Acute Assessment and Plan: * due to a few issues: * from SANG/ARF (and inability to clear uremic toxins * lactic acidosis (complicated by metformin use prior to admission) * possible infection (known hx of osteomyelitis and missed antibiotic dos es...) * mild improvement with bicarb IVFs * admission ABG noted * follow trend of CO2 (4) Acute pancreatitis: Qualifiers: Acute pancreatitis complication: unspecified Pancreatitis type: unspecified pancreatitis type Qualified Code(s): K85.90 - Acute pancreatitis without necrosis or infection, unspecified Code(s): K85.90 - Acute pancreatitis without necrosis or infection, unspecified Status: Acute Assessment and Plan: * noted by history of abdominal pain, nausea, vomiting and diarrhea in association with elevated lipase * higher lipase level noted today * confirmed by CT scan -- no mention of gallbladder disease or gall stones * NPO status for now * IVFs but follow volume status closely given diminished urine output (5) Altered mental status: Code(s): R41.82 - Altered mental status, unspecified Status: Acute Assessment and Plan: * noted on admission and currently * however, awake and alert for the most part but difficult noted providing history that led to admisson * CT of brain negative * highly suspect related to uremic encephalopathy and SANG/ARF * follow mental status (6) Essential hypertension: Code(s): I10 - Essential (primary) hypertension Status: Acute Assessment and Plan: * reasonable control at this time * holding ARB and HCTZ given #1 * follow trend of hemodynamics (7) Alcoholism: Code(s): F10.20 - Alcohol dependence, uncomplicated Status: Acute Assessment and Plan: * known long standing history * on thiamine and folate * [facility] protocol (8) Hx of osteomyelitis: Code(s): Z87.39 - Personal history of other diseases of the musculoskeletal system and connective tissue Status: Acute Assessment and Plan: * reported history from Jun 2023 hospitalization * had been on outpatient IV antibiotics since that time * antibiotics to blame for #1 (?) * follow repeat culture data * follow vancomycin levels (9) Diabetes mellitus: Code(s): E11.9 - Type 2 diabetes mellitus without complications Status: Acute Assessment and Plan: * follow accu-cheks * glycemic control per hospitalists Case discussed with Dr. Arana. I had a long and lengthy discussion (greater than 25 minutes) with the patient regarding his severe renal dysfunction in association with hyperkalemia and metabolic acidosis. I am concerned that medical management alone will not correct this issue and he may require renal replacement therapy/dialysis. 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 Although he has not thrilled with the idea of dialysis, he reports that he would be willing to do so if this is required to help optimize his medical status. I will see what his repeat labs are in the morning and if they still remain suboptimal, proceed with consulting surgery for placement of a temporary dialysis catheter and subsequent initiation renal replacement therapy / dialysis I will continue follow the patient with you while he remains hospitalized and make further recommendations as deemed necessary. Thank you for allowing me to participate in care of this patient. History of Present Illness Reason for Consult Consult date: 08/20/23 Reason for consult: acute renal failure Chief Complaint Chief complaint: ARF,Hyperkalemia,Metabolic Acidosis,Pancreatitis History of Present Illness Narrative: The patient is a 57-year-old male with a past medical history as outlined below who presented to [facility] Emergency room for further evaluation of abdominal pain. The patient currently resides in [facility] and is in this area for work related issues. In obtaining the history from the patient, he reports that he feels somewhat confused and foggy in terms of trying to relay his history and the events that led to his presentation to the emergency room. Apparently, in March of 2023, he underwent lumbar back surgery for bilateral sciatic nerve pain. since that time, he developed increasing pain in his right lower extremity with radiation to his pelvis area and back. He was initially treated with Gabapentin on the assumption this was neuropathic pain since he does have a history of diabetes and neuropathy. However the pain continued be an ongoing issue and subsequent further workup and evaluation apparently discovered that he had lumbar osteomyelitis which required acute hospitalization in June of this year. He ultimately had a PICC line placed and was discharged on a protracted course of IV antibiotics which included vancomycin and cefepime. He started having abdominal pain about 4-5 days ago in association with nausea, vomiting, diarrhea, as well as chills and tremors. He reports outpatient labs done several days ago that showed his creatinine was up to 5.7 mg/dL but it would seem that given his work/travel schedule, this was not further evaluated. Workup and evaluation emergency room demonstrated the patient to be hem odynamically stable if not hypertensive and afebrile. He was slightly tachycardic but was not hypoxic. Routine blood tests were significant for elevated white blood cell count of 13.8 an association with further marked decline in his kidney function with a BUN of 90 and a creatinine of 16.5 compli cated by hyperkalemia with a potassium of 6.5 and a significant metabolic acidosis in association with a elevated lactic acid of 5.4. His lipase was quite elevated as well but he had normal LFTs. UA was significant for blood, ketones but otherwise was negative. His chest x-ray is clear but a CT scan of his abdomen pelvis demonstrated acute pancreatitis in association with severe degenerative changes at L4 through S1 consistent with his previous diagnosis of diskitis/osteomyelitis. CT scan of the brain was negative. He received medical management for his hyperkalemia and initiated on aggressive IV fluids with subsequent transition to bicarb fluids. He was subsequently admitted to the [facility] for further evaluation and therapy. Since admission, his acidosis is somewhat better with the bicarb drip but he still has some confusion / altered mental status which she is aware at the time my visit his renal function has not really significantly improved despite supportive interventions. Renal consultation was requested due to his acute kidney injury/acute renal failure. As far as the patient is aware both in the past as well as his recent hospitalization in June of 2023, his renal functions well within normal limits. As mentioned above, he had outpatient labs done several days ago that showed his creatinine up to 5.7 mg/dL but given his travel/work schedule I do not believe this issue was fully addressed. Given a history provided, there is some concern that the outpatient IV antibiotic therapy was receiving for his diskitis/osteomyelitis may have had an adverse impact on his renal function. Furthermore, his recently diagnosed pancreatitis in association with nausea and vomiting probably also further worsened his renal dysfunction as well. His outpatient labs include losartan and hydrochlorothiazide that it likely did not help matters either Which may have been further worsened by his suspected prerenal state from his excessive alcohol intake as well. Currently, at the time my visit, he is in [id number] distress secondary to abdominal discomfort and as already mentioned, he feels his thinking is not normal ( foggy ) as well. Review of Systems Review of Systems: As per HPI. [facility] Past Medical History Medical History Alcoholism Diabetes mellitus Diabetic neuropathy Essential hypertension Hx of osteomyelitis Lumbar spine Jun 2023 Hyperlipidemia Sciatica associated with disorder of lumbar spine Surgical History Surgical History History of lumbar surgery Family History Family History Mother Diabetes mellitus Father Alcoholism Social History Social History Social History: Alcohol use as above. He lives in [facility]. He is . He lives alone. He has dogs. He wishes to make himself a DNR although currently he is full code. Given his mild confusion, will continue full code status until he is more awake and alert enough to make informed decision. He nominates his son to be the individual who would make medical decisions for him if he is unable. Hx of MDMA use when young but no hx of IVDU. Smoking status: Light tobacco smoker Tobacco type: cigars Alcohol intake: current Drinks per week: 100 Do You Feel Safe in your Home?: Yes Lack of Transportation: No Lack of Food: Never True Current Housing: I Have Housing Concerned About Future Housing: No Difficulty Paying Gas/Electric Bills: No Difficulty Paying for Meds: No Currently Unemployed: No Education: Decline to Answer Difficulty w/ Childcare or Family Care: No Spiritual care concerns: No Meds Home Medications and Allergies Home Medications Medication Instructions Recorded Confirmed Type gabapentin 300 mg capsule 300 mg PO TID 08/20/23 08/20/23 History losartan 50 mg-hydrochlorothiazide 1 tablet PO DAILY 08/20/23 08/20/23 History 12.5 mg tablet metformin 500 mg tablet,extended 1 mg PO BID 08/20/23 08/20/23 History release 24 hr rosuvastatin 20 mg tablet 20 mg PO DAILY 08/20/23 08/20/23 History Allergies Allergy/AdvReac Type Severity Reaction Status Date / Time No Known Allergies Allergy Verified 08/19/23 21:33 Vital Signs Vital Signs Temp Pulse Resp BP Pulse Ox O2 Del Method 08/20/23 12:00 97.5 F L 109 H 16 138/71 97 Room Air 08/20/23 10:00 106 H 08/20/23 08:00 106 H 08/20/23 08:00 Room Air 08/20/23 08:00 97.3 F L 106 H 16 136/65 97 08/20/23 06:00 110 H 08/20/23 05:00 Room Air 08/20/23 04:22 116 H 08/20/23 04:57 97.8 F 115 H 24 H 165/71 H 98 08/20/23 03:52 110 H 19 98 08/20/23 01:48 115 H 12 158/78 H 98 08/20/23 00:30 122 H 17 157/79 H 98 08/19/23 22:30 122 H 13 152/77 H 100 08/19/23 21:32 110 H 23 H 173/90 H 100 08/19/23 20:23 97.3 F L 113 H 18 176/83 H 100 Room Air Exam Narrative: GENERAL APPEARANCE: well developed well nourished male in no acute distress HEENT: normocephalic, atraumatic, normal conjunctiva and sclera, nares patient NECK: no lymphadenopathy, thyromegaly, or JVD MOUTH: normal lips, teeth, and gums CARDIOVASCULAR: RRR, normal S1 and S2, no rub detected RESPIRATORY: clear anteriorly; few crackles but clear with coughing ABDOMEN: soft, diffuse tenderness, decreaed bowel sounds EXTREMITIES: no evidence of cyanosis, clubbing, or edema NEUROLOGICAL: alert and awake but confusion noted; CN II - XII intact bilaterally; no focal deficits noted Results Lab Results 08/21/23 06:44 08/21/23 06:44 Lab results: Most recent lab results ABG pH 7.185 (7.350-7.450) L* 08/20/23 05:00 ABG pCO2 24.7 mmHg (35.0-45.0) L 08/20/23 05:00 ABG pO2 88.9 mmHg (80.0-100.0) 08/20/23 05:00 ABG HCO3 9.1 mEq/l (22.0-26.0) L 08/20/23 05:00 ABG O2 Saturation 94.9 % (95.0-100.0) L 08/20/23 05:00 Calcium 9.1 mg/dL (8.4-10.2) 08/20/23 11:37 Phosphorus 7.3 mg/dL (2.5-4.5) H 08/20/23 11:37 Magnesium 2.2 mg/dL (1.6-2.3) 08/20/23 11:37 Urine Creatinine 68.1 mg/dL 08/20/23 05:32 AMG Consult Billing Inpatient Consult Inpatient Consults: [id number] Initial Admit High
[2023-08-20 14:48] LABS: Reflex Lactic Acid Yes or No Add Lactic
[2023-08-20 15:23] LABS: Glucose Point of Care 101 mg/dl (65-105)
[2023-08-20 16:03] LABS: Lactic Acid 2.7 mmol/L (0.7-2.0)
[2023-08-20 17:10] LABS: Glucose Point of Care 99 mg/dl (65-105)
[2023-08-20] MEDS: SODIUM ZIRCONIUM CYCLOSILICATE 10 GM POWD.PACK PO (19:16)
[2023-08-20 20:22] LABS: Albumin Level 3.5 g/dL (3.5-5.1); Anion Gap 17 mmol/L (4-12); Blood Urea Nitrogen 87 mg/dL (9-20); Calcium 8.9 mg/dL (8.4-10.2); Carbon Dioxide 16 mmol/L (22-30); Chloride 101 mmol/L (98-107); Glucose 94 mg/dL (65-110); Sodium 134 mmol/L (137-145)
[2023-08-20 21:02] LABS: Estimated CRCL calculation 4 ml/min; Estimated Glomerular Filt Rate 3
[2023-08-20 21:44] LABS: Alveolar/Arterial O2 Gradient 45.3 mmHg; Base Excess ABG -6.9 mEq/l (+/-2.0); Device ROOM AIR; Fractional Inspired Oxygen 21 %; HCO3 ABG 18.1 mEq/l (22.0-26.0); Modified Allen's Test Pass; Oxygen Content ABG 14.2 %vol (16.0-22.0); Oxyhemoglobin 90.6 % THb (90.0-100.0); PCO2 ABG 34.7 mmHg (35.0-45.0); PO2 ABG 62.9 mmHg (80.0-100.0); Site Drawn RIGHT RADIAL; Total Hemoglobin 11.1 g/dL (12.0-18.0); pH ABG 7.336 (7.350-7.450)
[2023-08-20 22:17] LABS: Hemoglobin A1C 5.3 % (<5.7)
--- NOTE | 2023-08-20 23:32 | PC.NURSE ---
Pt's ex-, Ryanne [phone], called to check on pt. Pt states Ryanne can have any information regarding his healthcare. Updated Ryanne to pt's current condition.
[2023-08-21] VITALS (32 sets, daily range): BP systolic 126–170; BP diastolic 69–128; PULSE 109–125; RESP 16–20; TEMP 36.2–37; O2SAT 90–99
[2023-08-21] MEDS: HYDROmorphone HCL INJ (*CRX) 1 MG/ML SYR 0.5 MG IV PUSH (00:43)
[2023-08-21 01:00] LABS: Glucose Point of Care 131 mg/dl (65-105)
[2023-08-21] MEDS: SODIUM BICARBONATE 8.4% 75 MEQ in DEXTROSE 5%/0.45% SOD CHL 1,000 ML 125 MEQ IV CONT (03:44)
[2023-08-21 04:47] LABS: Glucose Point of Care 131 mg/dl (65-105)
[2023-08-21 06:52] LABS: Basophils Percent Auto 0.2 % (0.2-1.2); Eosinophils Absolute Auto 0.2 K/mm3 (0-0.3); Eosinophils Percent Auto 1.8 % (0-4.4); Hematocrit 29.3 % (42.0-52.0); Hemoglobin 9.8 g/dL (14.0-18.0); Immature Granulocyte Absolute 0.08 K/mm3 (0.00-0.031); Immature Granulocyte Percent A 0.6 % (0-0.5); Lymphocytes Absolute Auto 0.62 K/mm3 (0.9-3.2); Lymphocytes Percent Auto 4.8 % (18.3-44.2); Mean Corpuscular HGB Conc 33.4 g/dl (32-36); Mean Corpuscular Volume 92.7 fl (80-100); Monocytes Absolute Auto 1.4 K/mm3 (0.1-0.6); Monocytes Percent Auto 10.7 % (2.6-8.5); Neutrophils Absolute Auto 10.7 K/mm3 (1.3-6.7); Neutrophils Percent Auto 81.9 % (45.5-73.1); Platelet Count Result 197 k/mm3 (150-375); Red Blood Count 3.16 M/mm3 (4.6-6.20); Red Cell Distribution Width 16.5 % (11.5-14.5)
[2023-08-21 07:07] LABS: Alanine Aminotransferase 14 U/L (6-50); Albumin Level 3.2 g/dL (3.5-5.1); Alkaline Phosphatase 81 U/L (38-126); Anion Gap 16 mmol/L (4-12); Aspartate Amino Transferase 20 U/L (17-59); Bilirubin,Total 0.4 mg/dL (0.2-1.3); Blood Urea Nitrogen 87 mg/dL (9-20); Calcium 8.6 mg/dL (8.4-10.2); Carbon Dioxide 19 mmol/L (22-30); Chloride 100 mmol/L (98-107); Glucose 140 mg/dL (65-110); Phosphorus 6.8 mg/dL (2.5-4.5); Potassium 4.7 mmol/L (3.4-5.0); Sodium 135 mmol/L (137-145)
[2023-08-21 07:44] LABS: Glucose Point of Care 132 mg/dl (65-105)
[2023-08-21 08:13] LABS: Lipase 7014 U/L (23-300)
[2023-08-21 08:22] LABS: Estimated CRCL calculation 4 ml/min; Estimated Glomerular Filt Rate 3
--- NOTE | 2023-08-21 09:52 | P.CONGS_ITS ---
Assessment and Plan Assessment and plan (1) SANG (acute kidney injury): Code(s): N17.9 - Acute kidney failure, unspecified Status: Acute Assessment and Plan: Worsening despite conservative measures, we placed catheter for emergent access dialysis History of Present Illness Consult details Consult date: 08/21/23 Reason for consult: other (acute renal failure) Requesting physician: Dayron Carmona MD Narrative: The patient is a 57-year-old male presenting to the emergency department complaining of abdominal pain, mental status change. The patient is apparently from out of town in here for work. The patient reports diffuse abdominal pain over the last few days and feeling groggy, confused. Workup in the emergency department was significant for acute renal failure. Despite conservative measures the patient's kidney function continues to declined and emergent dialysis is requested at this point. Please note history is obtained via chart given patient mental status. Review of Systems Review of Systems: ROS unobtainable: Yes unobtainable due to medical condition and unobtainable due to mental status PMFSH Past Medical History Medical History Alcoholism Diabetes mellitus Diabetic neuropathy Essential hypertension Hx of osteomyelitis Lumbar spine Jun 2023 Hyperlipidemia Sciatica associated with disorder of lumbar spine Surgical History Surgical History History of lumbar surgery Family History Family History Mother Diabetes mellitus Father Alcoholism Social History Social History Social History: Alcohol use as above. He lives in [facility]. He is . He lives alone. He has dogs. He wishes to make himself a DNR although curre ntly he is full code. Given his mild confusion, will continue full code status until he is more awake and alert enough to make informed decision. He nominates his son to be the individual who would make medical decisions for him if he is unable. Hx of MDMA use when young but no hx of IVDU. Smoking status: Light tobacco smoker Tobacco type: cigars Alcohol intake: current Drinks per week: 100 Do You Feel Safe in your Home?: Yes Lack of Transportation: No Lack of Food: Never True Current Housing: I Have Housing Concerned About Future Housing: No Difficulty Paying Gas/Electric Bills: No Difficulty Paying for Meds: No Currently Unemployed: No Education: Decline to Answer Difficulty w/ Childcare or Family Care: No Spiritual care concerns: No Meds Home Medications and Allergies Home Medications Medication Instructions Recorded Confirmed Type gabapentin 300 mg capsule 300 mg PO TID 08/20/23 08/20/23 History losartan 50 mg-hydrochlorothiazide 1 tablet PO DAILY 08/20/23 08/20/23 History 12.5 mg tablet metformin 500 mg tablet,extended 1 mg PO BID 08/20/23 08/20/23 History release 24 hr rosuvastatin 20 mg tablet 20 mg PO DAILY 08/20/23 08/20/23 History Allergies Allergy/AdvReac Type Severity Reaction Status Date / Time No Known Allergies Allergy Verified 08/19/23 21:33 Vital Signs Vital Signs - 24 hr 08/20/23 10:00 08/20/23 12:00 08/20/23 12:00 Temperature 36.4 C L Pulse Rate 106 H 109 H 106 H Respiratory Rate 16 Blood Pressure 138/71 Pulse Oximetry 97 Oxygen Delivery 08/20/23 14:00 08/20/23 12:00 08/20/23 16:00 Temperature Pulse Rate 107 H 110 H Respiratory Rate Blood Pressure Pulse Oximetry Oxygen Delivery Room Air 08/20/23 16:00 08/20/23 16:00 08/20/23 18:00 Temperature 36.6 C Pulse Rate 110 H 109 H Respiratory Rate 12 Blood Pressure 139/78 Pulse Oximetry 100 Oxygen Delivery Room Air 08/20/23 20:00 08/21/23 00:00 08/20/23 20:00 Temperature 36.7 C 36.9 C Pulse Rate 111 H 118 H 111 H Respiratory Rate 16 16 Blood Pressure 156/80 H 161/85 H Pulse Oximetry 96 97 Oxygen Delivery 08/20/23 20:00 08/21/23 00:00 08/20/23 22:00 Temperature Pulse Rate 115 H Respiratory Rate Blood Pressure Pulse Oximetry Oxygen Delivery Room Air Room Air 08/21/23 00:00 08/21/23 02:00 08/21/23 04:00 Temperature 36.4 C L Pulse Rate 115 H 118 H 116 H Respiratory Rate 16 Blood Pressure 144/79 H Pulse Oximetry 91 Oxygen Delivery 08/21/23 04:00 08/21/23 04:00 08/21/23 06:00 Temperature Pulse Rate 116 H 114 H Respiratory Rate Blood Pressure Pulse Oximetry Oxygen Delivery Room Air 08/21/23 07:49 Temperature 36.7 C Pulse Rate 116 H Respiratory Rate 17 Blood Pressure 151/77 H Pulse Oximetry 94 Oxygen Delivery Exam Const: General: cooperative, confusion, ill appearing, tired appearing and uncomfortable HENMT: Head: normal to inspection, normocephalic and atraumatic Eyes: General: appearance normal, both eyes and all related structures Neck: Neck: normal visual inspection and no lymphadenopathy Chest: Chest palpation & inspection: normal inspection of the chest Resp: Auscultation: diminished lung sounds Cardio: Rate: regular rate Rhythm: regular rhythm GI: Inspection: normal to inspection Skin: General skin exam: normal color and no rashes or lesions noted Neuro: General: patient oriented x3 and CN's II-XI intact bilaterally Extrem: General: normal to inspection and full ROM Psych: Appearance: grossly normal Results Labs 08/21/23 06:44 08/21/23 06:44 Labs: Abnormal lab results 08/20/23 08/20/23 08/20/23 Range/Units 11:37 11:38 15:29 WBC (4.5-10.0) K/mm3 RBC (4.6-6.20) M/mm3 Hgb (14.0-18.0) g/dL Hct (42.0-52.0) % RDW (11.5-14.5) % Immature Gran % (Auto) (0-0.5) % Neut % (Auto) (45.5-73.1) % Lymph % (Auto) (18.3-44.2) % [place] % (Auto) (2.6-8.5) % Lymph # (Auto) (0.9-3.2) K/mm3 [place] # (Auto) (0.1-0.6) K/mm3 Abs Immat Gran (auto) (0.00-0.031) K/mm3 Absolute Neuts (auto) (1.3-6.7) K/mm3 ABG pH (7.350-7.450) ABG pCO2 (35.0-45.0) mmHg ABG pO2 (80.0-100.0) mmHg ABG HCO3 (22.0-26.0) mEq/l ABG O2 Saturation (95.0-100.0) % ABG O2 Content (16.0-22.0) %vol Total Hemoglobin (12.0-18.0) g/dL Sodium 134 L (137-145) mmol/L Potassium 5.3 H (3.4-5.0) mmol/L Carbon Dioxide 12 L (22-30) mmol/L Anion Gap 20 H (4-12) mmol/L BUN 86 H (9-20) mg/dL Creatinine 16.50 H (0.7-1.3) mg/dL Estimated GFR 3 L (59 - ) Glucose (65-110) mg/dL POC Capillary Glucose (65-105) mg/dl Lactic Acid 2.9 H 2.7 H (0.7-2.0) mmol/L Phosphorus 7.3 H (2.5-4.5) mg/dL Total Creatine Kinase 45 L (55-170) U/L Total Protein 6.0 L (6.3-8.2) g/dL Albumin (3.5-5.1) g/dL Lipase (23-300) U/L Random Vancomycin 43.1 H* (10-20) ug/mL Complement C3 54 L (88-165) mg/dL 08/20/23 08/20/23 08/21/23 Range/Units 19:21 21:29 00:56 WBC (4.5-10.0) K/mm3 RBC (4.6-6.20) M/mm3 Hgb (14.0-18.0) g/dL Hct (42.0-52.0) % RDW (11.5-14.5) % Immature Gran % (Auto) (0-0.5) % Neut % (Auto) (45.5-73.1) % Lymph % (Auto) (18.3-44.2) % [place] % (Auto) (2.6-8.5) % Lymph # (Auto) (0.9-3.2) K/mm3 [place] # (Auto) (0.1-0.6) K/mm3 Abs Immat Gran (auto) (0.00-0.031) K/mm3 Absolute Neuts (auto) (1.3-6.7) K/mm3 ABG pH 7.336 L (7.350-7.450) ABG pCO2 34.7 L (35.0-45.0) mmHg ABG pO2 62.9 L (80.0-100.0) mmHg ABG HCO3 18.1 L (22.0-26.0) mEq/l ABG O2 Saturation 91.0 L (95.0-100.0) % ABG O2 Content 14.2 L (16.0-22.0) %vol Total Hemoglobin 11.1 L (12.0-18.0) g/dL Sodium 134 L (137-145) mmol/L Potassium (3.4-5.0) mmol/L Carbon Dioxide 16 L (22-30) mmol/L Anion Gap 17 H (4-12) mmol/L BUN 87 H (9-20) mg/dL Creatinine 16.20 H (0.7-1.3) mg/dL Estimated GFR 3 L (59 - ) Glucose (65-110) mg/dL POC Capillary Glucose 131 H (65-105) mg/dl Lactic Acid (0.7-2.0) mmol/L Phosphorus 7.0 H (2.5-4.5) mg/dL Total Creatine Kinase (55-170) U/L Total Protein (6.3-8.2) g/dL Albumin (3.5-5.1) g/dL Lipase (23-300) U/L Random Vancomycin (10-20) ug/mL Complement C3 (88-165) mg/dL 08/21/23 08/21/23 08/21/23 Range/Units 04:43 06:44 07:31 WBC 13.0 H (4.5-10.0) K/mm3 RBC 3.16 L (4.6-6.20) M/mm3 Hgb 9.8 L (14.0-18.0) g/dL Hct 29.3 L (42.0-52.0) % RDW 16.5 H (11.5-14.5) % Immature Gran % (Auto) 0.6 H (0-0.5) % Neut % (Auto) 81.9 H (45.5-73.1) % Lymph % (Auto) 4.8 L (18.3-44.2) % [place] % (Auto) 10.7 H (2.6-8.5) % Lymph # (Auto) 0.62 L (0.9-3.2) K/mm3 [place] # (Auto) 1.4 H (0.1-0.6) K/mm3 Abs Immat Gran (auto) 0.08 H (0.00-0.031) K/mm3 Absolute Neuts (auto) 10.7 H (1.3-6.7) K/mm3 ABG pH (7.350-7.450) ABG pCO2 (35.0-45.0) mmHg ABG pO2 (80.0-100.0) mmHg ABG HCO3 (22.0-26.0) mEq/l ABG O2 Saturation (95.0-100.0) % ABG O2 Content (16.0-22.0) %vol Total Hemoglobin (12.0-18.0) g/dL Sodium 135 L (137-145) mmol/L Potassium (3.4-5.0) mmol/L Carbon Dioxide 19 L (22-30) mmol/L Anion Gap 16 H (4-12) mmol/L BUN 87 H (9-20) mg/dL Creatinine 16.80 H (0.7-1.3) mg/dL Estimated GFR 3 L (59 - ) Glucose 140 H (65-110) mg/dL POC Capillary Glucose 131 H 132 H (65-105) mg/dl Lactic Acid (0.7-2.0) mmol/L Phosphorus 6.8 H (2.5-4.5) mg/dL Total Creatine Kinase (55-170) U/L Total Protein 6.0 L (6.3-8.2) g/dL Albumin 3.2 L (3.5-5.1) g/dL Lipase 7014 H (23-300) U/L Random Vancomycin (10-20) ug/mL Complement C3 (88-165) mg/dL Diabetes panel 08/20/23 08/20/23 08/21/23 Range/Units 11:37 19:21 06:44 Sodium 134 L 134 L 135 L (137-145) mmol/L Potassium 5.3 H 5.0 4.7 (3.4-5.0) mmol/L Chloride 102 101 100 (98-107) mmol/L Carbon Dioxide 12 L 16 L 19 L (22-30) mmol/L BUN 86 H 87 H 87 H (9-20) mg/dL Creatinine 16.50 H 16.20 H 16.80 H (0.7-1.3) mg/dL Glucose 91 94 140 H (65-110) mg/dL Hemoglobin A1c 5.3 (<5.7) % Calcium 9.1 8.9 8.6 (8.4-10.2) mg/dL AST 22 20 (17-59) U/L ALT 18 14 (6-50) U/L Alkaline Phosphatase 77 81 (38-126) U/L Total Protein 6.0 L 6.0 L (6.3-8.2) g/dL Albumin 3.5 3.5 3.2 L (3.5-5.1) g/dL Triglycerides 109 (<150) mg/dL Calcium panel 08/20/23 08/20/23 08/21/23 Range/Units 11:37 19:21 06:44 Calcium 9.1 8.9 8.6 (8.4-10.2) mg/dL Phosphorus 7.3 H 7.0 H 6.8 H (2.5-4.5) mg/dL Albumin 3.5 3.5 3.2 L (3.5-5.1) g/dL Pituitary panel 08/20/23 08/20/23 08/21/23 Range/Units 11:37 19:21 06:44 Sodium 134 L 134 L 135 L (137-145) mmol/L Potassium 5.3 H 5.0 4.7 (3.4-5.0) mmol/L Chloride 102 101 100 (98-107) mmol/L Carbon Dioxide 12 L 16 L 19 L (22-30) mmol/L BUN 86 H 87 H 87 H (9-20) mg/dL Creatinine 16.50 H 16.20 H 16.80 H (0.7-1.3) mg/dL Glucose 91 94 140 H (65-110) mg/dL Calcium 9.1 8.9 8.6 (8.4-10.2) mg/dL Adrenal panel 08/20/23 08/20/23 08/21/23 Range/Units 11:37 19:21 06:44 Sodium 134 L 134 L 135 L (137-145) mmol/L Potassium 5.3 H 5.0 4.7 (3.4-5.0) mmol/L Chloride 102 101 100 (98-107) mmol/L Carbon Dioxide 12 L 16 L 19 L (22-30) mmol/L BUN 86 H 87 H 87 H (9-20) mg/dL Creatinine 16.50 H 16.20 H 16.80 H (0.7-1.3) mg/dL Glucose 91 94 140 H (65-110) mg/dL Calcium 9.1 8.9 8.6 (8.4-10.2) mg/dL Total Bilirubin 0.3 0.4 (0.2-1.3) mg/dL AST 22 20 (17-59) U/L ALT 18 14 (6-50) U/L Alkaline Phosphatase 77 81 (38-126) U/L Total Protein 6.0 L 6.0 L (6.3-8.2) g/dL Albumin 3.5 3.5 3.2 L (3.5-5.1) g/dL All other labs normal.
--- NOTE | 2023-08-21 10:22 | P.OP_ITS ---
Procedure Note - Detailed Date of Procedure 08/21/23 Pre-op Diagnosis acute renal failure Post-op Diagnosis Same Procedure Performed placement of right internal jugular Trialysis catheter under ultrasound guidance Surgeon Alma Delia Edwards MD Anesthesia Local Indications 57-year-old male with acute renal failure necessitating emergent dialysis Findings 1st stick right internal jugular vein under ultrasound guidance Description of Procedure The patient was placed in the supine position in Trendelenburg position. Consent was obtained prior to the initiation of the procedure. A time-out was then done to verify the patient's identity, as well as the procedure being performed. The patient was then prepped and draped in the normal sterile fashion. I then identified the right internal jugular vein with the ultrasound device. I then localized the neck around the vein at our anticipated insertion site. Using the ultrasound, I gain access into the right internal jugular vein with an 18 gauge needle. I then fed the guidewire into the right internal jugular vein. The needle was then removed leaving just the guidewire in the vein. I then enlarged the opening around the guidewire. I then serially di lated the opening with the dilators. Once adequately dilated, a 16 cm Trialysis catheter was placed under sterile Seldinger technique over the guidewire into the right internal jugular vein. Once properly positioned, the guidewire was removed just leaving the catheter in the vein. I was able to easily draw and flush from all ports. I then sutured the catheter in place. Sterile dressing was then placed. The patient tolerated the procedure well. A portable chest x- ray will be done to confirm positioning. Implants 16 cm Trialysis catheter in right internal jugular vein Estimated Blood Loss 5 Complications No immediate complications Condition Critical Disposition No change [facility] Billing Surgery - Charge Forward: Surgery Billing
[2023-08-21 11:30] LABS: Glucose Point of Care 123 mg/dl (65-105)
[2023-08-21] MEDS: FOLIC ACID 1 MG/0.2 ML INJ IV PUSH (12:09)
[2023-08-21] MEDS: THIAMINE HCL 200 MG/2 ML VIAL 100 MG IV PUSH (12:10)
[2023-08-21] MEDS: PANTOPRAZOLE SODIUM IV 40 MG VIAL IV PUSH (12:10)
--- NOTE | 2023-08-21 15:58 | PM.IMPN ---
Progress Note: A&P Assessment and Plan (1) Acute hyperkalemia: Code(s): E87.5 - Hyperkalemia Status: Acute Assessment and Plan: Patient presents with abdominal pain and found to have acute kidney injury and hyperkalemia at 6.5. SANG most likely the etiology of his hyperkalemia. Potassium was treated appropriately. Potassium has improved to 4.7 today. Dialysis to control electrolyte abnormalities. (2) Acute renal failure: Qualifiers: Acute renal failure type: unspecified Qualified Code(s): N17.9 - Acute kidney failure, unspecified Code(s): N17.9 - Acute kidney failure, unspecified Status: Acute Assessment and Plan: Patient presumably has no underlying kidney problems. Creatinine was 5.7 few days prior to admission on routine labs. Creatinine here was 16.5 with a BUN of 90. He had hyperkalemia and severe metabolic gap acidosis. CXR clear. Patient was started on a bicarb drip and potassium was treated appropriately. Potassium normal and metabolic acidosis better. Renal function is unchanged. Urine output essentially anuric. Etiology unclear but Vanco random level elevated at 43. Total CK was normal. Suspect related to dehydration, medications, vacno toxicity and underlying renal disease (DM, HTN?) Nephrology was consulted and apprecaite their input. Patient informed he will need HD and he agrees. HD catheter placed and HD to start today. Continue workup for etiology of acute kidney injury Monitor urine output, renal function and electrolytes. (3) Acute pancreatitis: Qualifiers: Acute pancreatitis complication: unspecified Pancreatitis type: unspecified pancreatitis type Qualified Code(s): K85.90 - Acute pancreatitis without necrosis or infection, unspecified Code(s): K85.90 - Acute pancreatitis without necrosis or infection, unspecified Status: Acute Assessment and Plan: Patient presents with abdominal pain, nausea, vomiting and diarrhea. Lipase was elevated on admission and climbed to 12.3K CT does not mention gallbladder disease or cholelithiasis. RUQ US showing mild intrahepatic biliary dilation but no GS. LFTs normal. TG normal. Most likely related to his alcoholism Lipase better. Start clear liquids (4) Metabolic acidosis: Code(s): E87.20 - Acidosis, unspecified Status: Acute Assessment and Plan: Patient with severe metabolic gap acidosis. This was noted in the outpatient setting as well. Most likely related to his severe renal disease and lactic acidosis Treated witn IV fluids with bicarb. Control electrolytes with dialysis. (5) Lactic acidosis: Code(s): E87.20 - Acidosis, unspecified Status: Acute Assessment and Plan: Patient with severe lactic acidosis to 5.4 likely related to above. Blood cultures collected given that he has PICC line in place and has been missing doses of his antibiotics BCx NGTD Also related to metformin which is held. (6) Alcoholism: Code(s): F10.20 - Alcohol dependence, uncomplicated Status: Acute Assessment and Plan: Patient with history of longstanding alcoholism. LFTs normal. Liver appears normal by CT. INR 1.2 and protein level normal to suggest good intrinsic function. Started thiamine and folate. CIWA protocol started and score trending down. Librium and Ativan available as needed for signs/symptoms of withdrawal. Will hold on scheduling benzodiazepines given his altered mental status. (7) Altered mental status: Code(s): R41.82 - Altered mental status, unspecified Status: Acute Assessment and Plan: Patient is mildly obtunded but awake and mostly oriented. He does have difficulty providing a detailed history CT the brain showing no acute findings. Suspect this is related to uremia and metabolic acidosis. Follow clinically for now. Re-assess after HD (8) Diabetes mellitus: Code(s): E11.9 - Type 2 diabetes mellitus without complications Status: Acute Assessment and Plan: Patient with history of diabetes. A1c 5.3. Continue sliding scale protocol with hypoglycemia protocol. (9) Essential hypertension: Code(s): I10 - Essential (primary) hypertension Status: Acute Assessment and Plan: Patient with essential hypertension. Blood pressure was elevated on admission but has improved. Holding losartan and HCTZ. Continue to follow. Hydralazine p.r.n. (10) Hx of osteomyelitis: Code(s): Z87.39 - Personal history of other diseases of the musculoskeletal system and connective tissue Status: Acute Assessment and Plan: Patient with a history of lumbar spine osteomyelitis. This may have been after his lumbar surgery in March. He has been on IV antibiotics since June. Given the concern that his abx may be contributing to his renal failure, IV antibiotics stopped at this time Vanco level was very high. BCx NGTD Follow Plan DVT prophylaxis -SCDs Code status -full. Will clarify with patient once he is more awake and alert. Subjective Date/time seen: 08/21/23 15:58 Interval history: 57yo male with alcoholism, HTN, DM and currently undergoing treatment for osteomyelitis who presents with abdominal pain. Central line placed today with plans for HD. His last Vanco dose was 08/15/23. He feels nauseous. Exam Narrative: AF 97.8 152/78 111 20 99% ra Gen - NARD Chest - bibasilar crackles, nml RR CV - RRR S1/S2 Abd - Soft, epigastric pain, +BS - Foster secured with small amount of urine in the bag Ext - No pedal edema Neuro - awake but mildly obtunded. Psych - Nml mood Skin - Warm and dry Objective Data Vital Signs Vital Signs: Vital Signs - 24 hr 08/20/23 16:00 08/20/23 16:00 08/20/23 16:00 Temperature 97.8 F Pulse Rate 110 H 110 H Respiratory Rate 12 Blood Pressure 139/78 Pulse Oximetry 100 Oxygen Delivery Room Air 08/20/23 18:00 08/20/23 20:00 08/21/23 00:00 Temperature 98.1 F 98.4 F Pulse Rate 109 H 111 H 118 H Respiratory Rate 16 16 Blood Pressure 156/80 H 161/85 H Pulse Oximetry 96 97 Oxygen Delivery 08/20/23 20:00 08/20/23 20:00 08/21/23 00:00 Temperature Pulse Rate 111 H Respiratory Rate Blood Pressure Pulse Oximetry Oxygen Delivery Room Air Room Air 08/20/23 22:00 08/21/23 00:00 08/21/23 02:00 Temperature Pulse Rate 115 H 115 H 118 H Respiratory Rate Blood Pressure Pulse Oximetry Oxygen Delivery 08/21/23 04:00 08/21/23 04:00 08/21/23 04:00 Temperature 97.5 F L Pulse Rate 116 H 116 H Respiratory Rate 16 Blood Pressure 144/79 H Pulse Oximetry 91 Oxygen Delivery Room Air 08/21/23 06:00 08/21/23 07:49 08/21/23 11:39 Temperature 98.0 F 98.4 F Pulse Rate 114 H 116 H 109 H Respiratory Rate 17 20 Blood Pressure 151/77 H 164/83 H Pulse Oximetry 94 93 Oxygen Delivery 08/21/23 08:00 08/21/23 10:00 08/21/23 12:00 Temperature Pulse Rate 115 H 115 H 115 H Respiratory Rate Blood Pressure Pulse Oximetry Oxygen Delivery 08/21/23 15:34 Temperature 97.8 F Pulse Rate 111 H Respiratory Rate 20 Blood Pressure 152/78 H Pulse Oximetry 99 Oxygen Delivery Intake/Output Intake/Output: Intake & Output 08/18/23 08/19/23 08/20/23 08/21/23 23:59 23:59 23:59 23:59 Intake Total 100 4091.7 1060.4 Output Total 125 175 Balance 100 3966.7 885.4 Meds/Results Medications: Active Medications Generic Name Dose Route Start Last Admin Trade Name Freq PRN Reason Stop Dose Admin Acetaminophen 650 mg 08/20/23 02:20 Acetaminophen 650 Mg Suppository RECTAL Q6H PRN Mild Pain (1-3) or Fever Chlordiazepoxide HCl 25 mg 08/20/23 11:05 Chlordiazepoxide (*Crx) 25 Mg Capsule PO Q6HR PRN withdrawal Dextrose 12.5 gm 08/20/23 02:25 Dextrose 50% 25 Gm/50 Ml Syringe IV PUSH PRN PRN Hypoglycemia Protocol Folic Acid 1 mg 08/21/23 09:00 08/21/23 12:09 Folic Acid 1 Mg/0.2 Ml Inj IV PUSH 1 mg QAM ANUJA Administration Glucagon 1 mg 08/20/23 02:25 Glucagon For Inj 1 Mg Vial IM PRN PRN Hypoglycemia Protocol Glucose 15 gm 08/20/23 02:25 Glucose Oral Gel 15 Gm Of Glucse In 37.5 Gm Tube PO PRN PRN Hypoglycemia Protocol Hydralazine HCl 10 mg 08/20/23 11:02 Hydralazine Hcl 20 Mg/Ml Vial IV PUSH Q8H PRN Blood Pressure - High Dextrose 1,000 mls @ 100 mls/hr 08/20/23 02:25 Dextrose 5% 1,000 Ml IVPB PRN PRN Hypoglycemia Protocol Albumin Human 50 mls @ 999 mls/hr 08/21/23 11:04 Albutein IVPB 09/20/23 11:03 Q10M PRN HYPOTENSION Insulin Aspart 2 - 5 units 08/20/23 12:00 08/21/23 11:50 Insulin Aspart (*Bkc) 100 Units/Ml SUB-Q Not Given Q6HR ANUJA Protocol Lorazepam 2 mg 08/20/23 04:50 Lorazepam Inj (*Crx) 2 Mg/Ml Vial IV PUSH Q2H PRN CIWA > 15 Ondansetron HCl 4 mg 08/20/23 02:20 Ondansetron Inj 4 Mg/2 Ml Vial IV PUSH Q4H PRN Nausea Pantoprazole Sodium 40 mg 08/21/23 09:00 08/21/23 12:10 Pantoprazole Sodium Iv 40 Mg Vial IV PUSH 40 mg QAM ANUJA Administration Sodium Chloride 20 ml 08/19/23 21:40 Central Line Flush IV PUSH PRN PRN after blood draws Sodium Chloride 10 ml 08/19/23 21:40 Central Line Flush IV PUSH PRN PRN with TPN bag changes Sodium Chloride 10 ml 08/19/23 22:00 08/21/23 11:50 Central Line Flush IV PUSH Not Given Q8HR ANUJA Sodium Chloride 10 ml 08/21/23 14:00 Central Line Flush IV PUSH Q8HR ANUJA Sodium Chloride 20 ml 08/21/23 10:22 Central Line Flush IV PUSH PRN PRN after blood draws Thiamine HCl 100 mg 08/20/23 09:00 08/21/23 12:10 Thiamine Hcl 200 Mg/2 Ml Vial IV PUSH 100 mg DAILY ANUJA Administration Radiology Results: ITS Impressions Abdomen/Pelvis CT 08/19/23 22:34 IMPRESSION: 1. Acute pancreatitis. 2: Severe degenerative changes at L4-5 and L5-S1 with deformity of the endplates at L4-5. Consider discitis/osteomyelitis in the appropriate clinical setting. If there is concern for discitis, further evaluation with MRI lumbar spine without and with contrast recommended. Head CT 08/20/23 05:43 Impression: No significant abnormality seen. Upper Quadrant Ultrasound 08/20/23 18:10 IMPRESSION: 1: Mild intrahepatic biliary dilatation. Chest X-Ray 08/21/23 10:39 IMPRESSION: 1. Right upper extremity peripherally inserted central venous catheter and newly placed large-bore right internal jugular central venous catheter, both with tips at the superior cavoatrial junction. 2. Mild increased interstitial pattern with some peripheral Raymond B-lines consistent with mild pulmonary edema. 3. Mild airspace opacities at the bilateral lung bases which could represent more focal pulmonary edema, atelectasis or pneumonia. Labs Labs: Laboratory Results - last 24 hr 08/20/23 08/20/23 08/20/23 11:37 15:29 17:08 WBC RBC Hgb Hct MCV MCH MCHC RDW Plt Count MPV Immature Gran % (Auto) Neut % (Auto) Lymph % (Auto) [place] % (Auto) Eos % (Auto) Baso % (Auto) Lymph # (Auto) [place] # (Auto) Eos # (Auto) Baso # (Auto) Abs Immat Gran (auto) Absolute Neuts (auto) Absolute Nucleated RBC Nucleated RBC % Puncture Site ABG pH ABG pCO2 ABG pO2 ABG PO2/FiO2 Ratio ABG HCO3 ABG O2 Saturation ABG O2 Content ABG Base Excess A-a Gradient Oxyhemoglobin Total Hemoglobin O2 Delivery Device O2 Liters/Min FiO2 Sodium Potassium Chloride Carbon Dioxide Anion Gap BUN Creatinine Estim Creat Clear Calc Estimated GFR Glucose POC Capillary Glucose 99 Hemoglobin A1c 5.3 Lactic Acid 2.7 H Calcium Phosphorus Magnesium Total Bilirubin AST ALT Alkaline Phosphatase Total Protein Albumin Lipase 08/20/23 08/20/23 08/21/23 19:21 21:29 00:56 WBC RBC Hgb Hct MCV MCH MCHC RDW Plt Count MPV Immature Gran % (Auto) Neut % (Auto) Lymph % (Auto) [place] % (Auto) Eos % (Auto) Baso % (Auto) Lymph # (Auto) [place] # (Auto) Eos # (Auto) Baso # (Auto) Abs Immat Gran (auto) Absolute Neuts (auto) Absolute Nucleated RBC Nucleated RBC % Puncture Site Right radial ABG pH 7.336 L ABG pCO2 34.7 L ABG pO2 62.9 L ABG PO2/FiO2 Ratio 3.00 ABG HCO3 18.1 L ABG O2 Saturation 91.0 L ABG O2 Content 14.2 L ABG Base Excess -6.9 A-a Gradient 45.3 Oxyhemoglobin 90.6 Total Hemoglobin 11.1 L O2 Delivery Device Room air O2 Liters/Min Not Reportable FiO2 21 Sodium 134 L Potassium 5.0 Chloride 101 Carbon Dioxide 16 L Anion Gap 17 H BUN 87 H Creatinine 16.20 H Estim Creat Clear Calc 4 Estimated GFR 3 L Glucose 94 POC Capillary Glucose 131 H Hemoglobin A1c Lactic Acid Calcium 8.9 Phosphorus 7.0 H Magnesium Total Bilirubin AST ALT Alkaline Phosphatase Total Protein Albumin 3.5 Lipase 08/21/23 08/21/23 08/21/23 04:43 06:44 07:31 WBC 13.0 H RBC 3.16 L Hgb 9.8 L Hct 29.3 L MCV 92.7 D MCH 31.0 MCHC 33.4 RDW 16.5 H Plt Count 197 MPV 10.0 Immature Gran % (Auto) 0.6 H Neut % (Auto) 81.9 H Lymph % (Auto) 4.8 L [place] % (Auto) 10.7 H Eos % (Auto) 1.8 Baso % (Auto) 0.2 Lymph # (Auto) 0.62 L [place] # (Auto) 1.4 H Eos # (Auto) 0.2 Baso # (Auto) 0.0 Abs Immat Gran (auto) 0.08 H Absolute Neuts (auto) 10.7 H Absolute Nucleated RBC 0.000 Nucleated RBC % 0.0 Puncture Site ABG pH ABG pCO2 ABG pO2 ABG PO2/FiO2 Ratio ABG HCO3 ABG O2 Saturation ABG O2 Content ABG Base Excess A-a Gradient Oxyhemoglobin Total Hemoglobin O2 Delivery Device O2 Liters/Min FiO2 Sodium 135 L Potassium 4.7 Chloride 100 Carbon Dioxide 19 L Anion Gap 16 H BUN 87 H Creatinine 16.80 H Estim Creat Clear Calc 4 Estimated GFR 3 L Glucose 140 H POC Capillary Glucose 131 H 132 H Hemoglobin A1c Lactic Acid Calcium 8.6 Phosphorus 6.8 H Magnesium 2.0 Total Bilirubin 0.4 AST 20 ALT 14 Alkaline Phosphatase 81 Total Protein 6.0 L Albumin 3.2 L Lipase 7014 H 08/21/23 11:25 WBC RBC Hgb Hct MCV MCH MCHC RDW Plt Count MPV Immature Gran % (Auto) Neut % (Auto) Lymph % (Auto) [place] % (Auto) Eos % (Auto) Baso % (Auto) Lymph # (Auto) [place] # (Auto) Eos # (Auto) Baso # (Auto) Abs Immat Gran (auto) Absolute Neuts (auto) Absolute Nucleated RBC Nucleated RBC % Puncture Site ABG pH ABG pCO2 ABG pO2 ABG PO2/FiO2 Ratio ABG HCO3 ABG O2 Saturation ABG O2 Content ABG Base Excess A-a Gradient Oxyhemoglobin Total Hemoglobin O2 Delivery Device O2 Liters/Min FiO2 Sodium Potassium Chloride Carbon Dioxide Anion Gap BUN Creatinine Estim Creat Clear Calc Estimated GFR Glucose POC Capillary Glucose 123 H Hemoglobin A1c Lactic Acid Calcium Phosphorus Magnesium Total Bilirubin AST ALT Alkaline Phosphatase Total Protein Albumin Lipase
--- NOTE | 2023-08-21 16:36 | P.PNNP_ITS ---
Progress Note: A&P Assessment and Plan (1) SANG (acute kidney injury): Code(s): N17.9 - Acute kidney failure, unspecified Status: Acute Assessment and Plan: * assuming normal renal function at baseline * however, creatinine noted to be elevated at 5.7mg/dl several days ago prior to admission * creatinine on admission 16.5mg/dl associated with hyperkalemia and metabolic acidosis * evaluation to date: * CT of abd/pelvis - kidneys unremarkable * CPK okay * urine electrolytes non-prerenal * urine eosinophils negative * proteinuria noted * minimal urine output noted since admission * confusion/AMS may be related to uremia as well * suspect multifactorial etiology: * secondary to antibiotics (?) - high vancomycin level noted * ongoing use of metformin + ARB + HCTZ prior to admission * pancreatitis * nausea/vomiting/diarrhea * prerenal factors * element of CKD present? -- known history of HTN and DM * follow-up serologies testing * initiated on HD today -- plan HD tomorrow as well * follow repeat labs and UOP to assess for renal recovery (2) Acute hyperkalemia: Code(s): E87.5 - Hyperkalemia Status: Acute Assessment and Plan: * improvement with medical management * dialysis should help maintain stability * follow trend of potassium levels (3) Metabolic acidosis: Code(s): E87.20 - Acidosis, unspecified Status: Acute Assessment and Plan: * due to a few issues: * from SANG/ARF (and inability to clear uremic toxins) * lactic acidosis (complicated by metformin use prior to admission) * possible infection (known hx of osteomyelitis and missed antibiotic doses...) * admission ABG noted * dilaysis should help compensate * follow trend of CO2 (4) Acute pancreatitis: Qualifiers: Acute pancreatitis complication: unspecified Pancreatitis type: unspecified pancreatitis type Qualified Code(s): K85.90 - Acute pancreatitis without necrosis or infection, unspecified Code(s): K85.90 - Acute pancreatitis without necrosis or infection, unspecified Status: Acute Assessment and Plan: * noted by history of abdominal pain, nausea, vomiting and diarrhea in association with elevated lipase * trending lipase levels * confirmed by CT scan -- no mention of gallbladder disease or gall stones * RUQ ultrasound and triglycerides okay * advance diet as tolerated (5) Altered mental status: Code(s): R41.82 - Altered mental status, unspecified Status: Acute Assessment and Plan: * noted on admission and currently * however, awake and alert for the most part but difficult noted providing history that led to admisson * CT of brain negative * highly suspect related to uremic encephalopathy and SANG/ARF * follow mental status with dialytic intervention (6) Essential hypertension: Code(s): I10 - Essential (primary) hypertension Status: Acute Assessment and Plan: * reasonable control at this time * holding ARB and HCTZ given #1 * hydralazine PRN * follow trend of hemodynamics (7) Alcoholism: Code(s): F10.20 - Alcohol dependence, uncomplicated Status: Acute Assessment and Plan: * known long standing history * on thiamine and folate * CIWA protocol (8) Hx of osteomyelitis: Code(s): Z87.39 - Personal history of other diseases of the musculoskeletal system and connective tissue Status: Acute Assessment and Plan: * reported history from Jun 2023 hospitalization * had been on outpatient IV antibiotics since that time * antibiotics to blame for #1 (?) * follow repeat culture data * follow vancomycin levels (9) Diabetes mellitus: Code(s): E11.9 - Type 2 diabetes mellitus without complications Status: Acute Assessment and Plan: * follow accu-cheks * glycemic control per hospitalists Will continue to follow. Subjective Date/time seen: 08/21/23 16:26 Interval history: Follow-up for acute kidney injury/acute renal failure. Tolerating hemodialysis treatment at the time of my visit (seen on HD at 4:25PM); s/p temporary HD catheter placement earlier today in anticipation of dialysis today; still feels somewhat nauseated at times with cloudy thinking. Exam Narrative: General: WD/WN male in NAD Heart: normal S1 and S2; no rub Lungs: few bibasilar crackles Abdomen: soft, +TTP, hypoactive bowel sounds Extremities: no cyanosis or clubbing; no edema Skin: warm and dry Objective Data Vital Signs Vital Signs: Vital Signs Temp Pulse Resp BP Pulse Ox O2 Del Method 08/21/23 16:15 113 H 154/88 H 08/21/23 16:11 117 H 157/93 H 08/21/23 15:59 97.9 F 113 H 18 164/113 H 08/21/23 15:34 97.8 F 111 H 20 152/78 H 99 08/21/23 12:00 115 H 08/21/23 10:00 115 H 08/21/23 08:00 115 H 08/21/23 11:39 98.4 F 109 H 20 164/83 H 93 08/21/23 07:49 98.0 F 116 H 17 151/77 H 94 08/21/23 06:00 114 H 08/21/23 04:00 Room Air 08/21/23 04:00 116 H 08/21/23 04:00 97.5 F L 116 H 16 144/79 H 91 08/21/23 02:00 118 H 08/21/23 00:00 115 H 08/20/23 22:00 115 H 08/21/23 00:00 Room Air 08/20/23 20:00 Room Air 08/20/23 20:00 111 H 08/21/23 00:00 98.4 F 118 H 16 161/85 H 97 08/20/23 20:00 98.1 F 111 H 16 156/80 H 96 08/20/23 18:00 109 H Intake/Output Intake/Output: Intake & Output 08/18/23 08/19/23 08/20/23 08/21/23 23:59 23:59 23:59 23:59 Intake Total 100 4091.7 1060.4 Output Total 125 175 Balance 100 3966.7 885.4 Meds/Results Medications: Active Medications Generic Name Dose Route Start Last Admin Trade Name Freq PRN Reason Stop Dose Admin Acetaminophen 650 mg 08/20/23 02:20 Acetaminophen 650 Mg Suppository RECTAL Q6H PRN Mild Pain (1-3) or Fever Chlordiazepoxide HCl 25 mg 08/20/23 11:05 Chlordiazepoxide (*Crx) 25 Mg Capsule PO Q6HR PRN withdrawal Dextrose 12.5 gm 08/20/23 02:25 Dextrose 50% 25 Gm/50 Ml Syringe IV PUSH PRN PRN Hypoglycemia Protocol Folic Acid 1 mg 08/21/23 09:00 08/21/23 12:09 Folic Acid 1 Mg/0.2 Ml Inj IV PUSH 1 mg QAM ANUJA Administration Glucagon 1 mg 08/20/23 02:25 Glucagon For Inj 1 Mg Vial IM PRN PRN Hypoglycemia Protocol Glucose 15 gm 08/20/23 02:25 Glucose Oral Gel 15 Gm Of Glucse In 37.5 Gm Tube PO PRN PRN Hypoglycemia Protocol Hydralazine HCl 10 mg 08/20/23 11:02 Hydralazine Hcl 20 Mg/Ml Vial IV PUSH Q8H PRN Blood Pressure - High Dextrose 1,000 mls @ 100 mls/hr 08/20/23 02:25 Dextrose 5% 1,000 Ml IVPB PRN PRN Hypoglycemia Protocol Albumin Human 50 mls @ 999 mls/hr 08/21/23 11:04 Albutein IVPB 09/20/23 11:03 Q10M PRN HYPOTENSION Insulin Aspart 2 - 5 units 08/20/23 12:00 08/21/23 11:50 Insulin Aspart (*Bkc) 100 Units/Ml SUB-Q Not Given Q6HR ANUJA Protocol Lorazepam 2 mg 08/20/23 04:50 Lorazepam Inj (*Crx) 2 Mg/Ml Vial IV PUSH Q2H PRN CIWA > 15 Ondansetron HCl 4 mg 08/20/23 02:20 Ondansetron Inj 4 Mg/2 Ml Vial IV PUSH Q4H PRN Nausea Pantoprazole Sodium 40 mg 08/21/23 09:00 08/21/23 12:10 Pantoprazole Sodium Iv 40 Mg Vial IV PUSH 40 mg QAM ANUJA Administration Sodium Chloride 20 ml 08/19/23 21:40 Central Line Flush IV PUSH PRN PRN after blood draws Sodium Chloride 10 ml 08/19/23 21:40 Central Line Flush IV PUSH PRN PRN with TPN bag changes Sodium Chloride 10 ml 08/19/23 22:00 08/21/23 11:50 Central Line Flush IV PUSH Not Given Q8HR ANUJA Sodium Chloride 10 ml 08/21/23 14:00 Central Line Flush IV PUSH Q8HR ANUJA Sodium Chloride 20 ml 08/21/23 10:22 Central Line Flush IV PUSH PRN PRN after blood draws Thiamine HCl 100 mg 08/20/23 09:00 08/21/23 12:10 Thiamine Hcl 200 Mg/2 Ml Vial IV PUSH 100 mg DAILY ANUJA Administration Radiology Results: ITS Impressions Abdomen/Pelvis CT 08/19/23 22:34 IMPRESSION: 1. Acute pancreatitis. 2: Severe degenerative changes at L4-5 and L5-S1 with deformity of the endplates at L4-5. Consider discitis/osteomyelitis in the appropriate clinical setting. If there is concern for discitis, further evaluation with MRI lumbar spine without and with contrast recommended. Head CT 08/20/23 05:43 Impression: No significant abnormality seen. Upper Quadrant Ultrasound 08/20/23 18:10 IMPRESSION: 1: Mild intrahepatic biliary dilatation. Chest X-Ray 08/21/23 10:39 IMPRESSION: 1. Right upper extremity peripherally inserted central venous catheter and newly placed large-bore right internal jugular central venous catheter, both with tips at the superior cavoatrial junction. 2. Mild increased interstitial pattern with some peripheral Raymond B-lines consistent with mild pulmonary edema. 3. Mild airspace opacities at the bilateral lung bases which could represent more focal pulmonary edema, atelectasis or pneumonia. Labs Labs: Laboratory Tests 08/21/23 06:44 08/21/23 06:44 Calcium 8.6 Phosphorus 6.8 H Magnesium 2.0 Total Bilirubin 0.4 AST 20 ALT 14 Alkaline Phosphatase 81 Total Protein 6.0 L Albumin 3.2 L Lipase 7014 H Microbiology 08/20/23 04:53 Blood Blood Culture - Preliminary 08/20/23 04:57 Blood Blood Culture - Preliminary [facility] Follow-up Billing Additional Procedures Additional Procedure: 15831 Hemodialysis
[2023-08-21 17:55] LABS: Glucose Point of Care 101 mg/dl (65-105)
[2023-08-21] MEDS: CENTRAL LINE FLUSH 10 ML IV PUSH ×2 (20:30→20:31)
[2023-08-21] MEDS: hydrALAZINE HCL 20 MG/ML VIAL 10 MG IV PUSH (20:38)
[2023-08-21 23:34] LABS: Glucose Point of Care 94 mg/dl (65-105)
[2023-08-22] VITALS (32 sets, daily range): BP systolic 135–176; BP diastolic 70–96; PULSE 105–121; RESP 18–25; TEMP 36.3–37.2; O2SAT 94–95
[2023-08-22] MEDS: MORPHINE SULFATE (*CRX) 4 MG/ML INJ IV PUSH (03:03)
[2023-08-22 05:03] LABS: Basophils Percent Auto 0.3 % (0.2-1.2); Eosinophils Absolute Auto 0.4 K/mm3 (0-0.3); Eosinophils Percent Auto 3.6 % (0-4.4); Hematocrit 28.5 % (42.0-52.0); Hemoglobin 9.2 g/dL (14.0-18.0); Immature Granulocyte Absolute 0.05 K/mm3 (0.00-0.031); Immature Granulocyte Percent A 0.5 % (0-0.5); Lymphocytes Absolute Auto 0.73 K/mm3 (0.9-3.2); Lymphocytes Percent Auto 6.6 % (18.3-44.2); Mean Corpuscular HGB Conc 32.3 g/dl (32-36); Mean Corpuscular Hemoglobin 30.2 pg (26-34); Mean Corpuscular Volume 93.4 fl (80-100); Mean Platelet Volume 10.7 fl (7.4-10.4); Monocytes Absolute Auto 1.2 K/mm3 (0.1-0.6); Monocytes Percent Auto 10.4 % (2.6-8.5); Neutrophils Absolute Auto 8.7 K/mm3 (1.3-6.7); Neutrophils Percent Auto 78.6 % (45.5-73.1); Platelet Count Result 204 k/mm3 (150-375); Red Blood Count 3.05 M/mm3 (4.6-6.20); Red Cell Distribution Width 16.7 % (11.5-14.5)
[2023-08-22 05:15] LABS: Alanine Aminotransferase 12 U/L (6-50); Alkaline Phosphatase 82 U/L (38-126); Anion Gap 8 mmol/L (4-12); Aspartate Amino Transferase 16 U/L (17-59); Bilirubin,Total 0.4 mg/dL (0.2-1.3); Blood Urea Nitrogen 55 mg/dL (9-20); Calcium 8.7 mg/dL (8.4-10.2); Carbon Dioxide 27 mmol/L (22-30); Chloride 100 mmol/L (98-107); Estimated CRCL calculation 6 ml/min; Estimated Glomerular Filt Rate 4; Glucose 98 mg/dL (65-110); Magnesium 1.9 mg/dL (1.6-2.3); Phosphorus 5.9 mg/dL (2.5-4.5); Potassium 4.6 mmol/L (3.4-5.0); Sodium 135 mmol/L (137-145)
[2023-08-22 05:16] LABS: Vancomycin Random 36.5 ug/mL (10-20)
[2023-08-22] MEDS: CENTRAL LINE FLUSH 10 ML IV PUSH ×6 (06:30→20:11)
[2023-08-22] MEDS: SODIUM CHLORIDE 0.9% IV 1,000 ML 999 ML IV CONT (08:06)
[2023-08-22 09:01] LABS: Lipase 3352 U/L (23-300)
--- NOTE | 2023-08-22 10:07 | P.PNIM_ITS ---
Progress Note: A&P Assessment and Plan (1) Acute renal failure: Qualifiers: Acute renal failure type: unspecified Qualified Code(s): N17.9 - Acute kidney failure, unspecified Code(s): N17.9 - Acute kidney failure, unspecified Status: Acute Assessment and Plan: Patient presumably has no underlying kidney problems. Creatinine was 5.7 few days prior to admission on routine labs. Creatinine here was 16.5 with a BUN of 90. He had hyperkalemia and severe metabolic gap acidosis. CXR clear. Patient was started on a bicarb drip and potassium was treated appropriately. Potassium normal and metabolic acidosis better. Renal function is unchanged. Urine output essentially anuric. Etiology unclear but Vanco random level elevated at 43. Total CK was normal. Suspect related to dehydration, medications, vanco toxicity and underlying renal disease (DM, HTN?) Nephrology was consulted and appreciate their input. Patient was informed he will need HD and he agreed so a HD catheter placed on 08/20 HD 08/20 and again today. Continue workup for etiology of acute kidney injury Monitor urine output, renal function and electrolytes. (2) Acute hyperkalemia: Code(s): E87.5 - Hyperkalemia Status: Acute Assessment and Plan: Patient presented with abdominal pain and found to have acute kidney injury and hyperkalemia at 6.5. SANG most likely the etiology of his hyperkalemia. Potassium was treated appropriately. Potassium has improved to 4.6 today. Dialysis to control electrolyte abnormalities. (3) Acute pancreatitis: Qualifiers: Acute pancreatitis complication: unspecified Pancreatitis type: unspecified pancreatitis type Qualified Code(s): K85.90 - Acute pancreatitis without necrosis or infection, unspecified Code(s): K85.90 - Acute pancreatitis without necrosis or infection, unspecified Status: Acute Assessment and Plan: Patient presents with abdominal pain, nausea, vomiting and diarrhea. Lipase was elevated on admission and climbed to 12.3K CT shows pancreatitis but does not mention gallbladder disease or cholelithiasis. RUQ US showing mild intrahepatic biliary dilation but no GS. LFTs normal. TG normal. Most likely related to his alcoholism Lipase better. Continue clear liquids. Advance diet tomorrow if lipase continues to improve and no significant pain with eating (4) Metabolic acidosis: Code(s): E87.20 - Acidosis, unspecified Status: Acute Assessment and Plan: Patient with severe metabolic gap acidosis. This was noted in the outpatient setting as well. Most likely related to his severe renal disease and lactic acidosis Treated witn IV fluids with bicarb. Control electrolytes with dialysis. (5) Lactic acidosis: Code(s): E87.20 - Acidosis, unspecified Status: Acute Assessment and Plan: Patient with severe lactic acidosis to 5.4 likely related to above. Blood cultures collected given that he has PICC line in place and has been missing doses of his antibiotics BCx NGTD Also related to metformin which is held. (6) Alcoholism: Code(s): F10.20 - Alcohol dependence, uncomplicated Status: Acute Assessment and Plan: Patient with history of longstanding alcoholism. LFTs normal. Liver appears normal by CT. INR 1.2 and protein level normal to suggest good intrinsic function. Started thiamine and folate. CIWA protocol started and score trending down. Librium and Ativan available as needed for signs/symptoms of withdrawal. Will hold on scheduling benzodiazepines given his altered mental status. (7) Altered mental status: Code(s): R41.82 - Altered mental status, unspecified Status: Acute Assessment and Plan: Patient was mildly obtunded but awake and mostly oriented. He did have diff iculty providing a detailed history CT the brain showing no acute findings. Suspect this is related to uremia and metabolic acidosis. Clinically improved after having HD. Continue to follow (8) Diabetes mellitus: Code(s): E11.9 - Type 2 diabetes mellitus without complications Status: Acute Assessment and Plan: Patient with history of diabetes. A1c 5.3. Continue sliding scale protocol with hypoglycemia protocol. (9) Essential hypertension: Code(s): I10 - Essential (primary) hypertension Status: Acute Assessment and Plan: Patient with essential hypertension. Patient's blood pressure was reviewed on 08/21 Blood pressure poorly controlled Holding losartan and HCTZ. Continue to follow. Hydralazine p.r.n. Defer to nephrology about treatment or allow to run high while he is requiring frequent HD (10) Hx of osteomyelitis: Code(s): Z87.39 - Personal history of other diseases of the musculoskeletal system and connective tissue Status: Acute Assessment and Plan: Patient with a history of lumbar spine osteomyelitis. This may have been after his lumbar surgery in March. He has been on IV antibiotics since June. CT scan showing severe degenerative changes at L4-5 and L5-S1 with deformity of the endplates at L4-5. Consider discitis/osteomyelitis in the appropriate clinical setting. Given the concern that his abx may be contributing to his renal failure, IV antibiotics stopped at this time Vanco level was very high and remians elevated BCx NGTD Consider MRI of lumbar spine Follow Plan DVT prophylaxis -SCDs Code status -full. Subjective Date/time seen: 08/22/23 10:07 Interval history: 57yo male with alcoholism, HTN, DM and currently undergoing treatment for osteomyelitis who presents with abdominal pain. Had HD yesterday and having it again today. Feeling better. Had increasing abdominal pain better with a one time dose of morphine. Tolerating liquid diet Exam Narrative: AF 97.3 151/81 113 18 94% ra Gen - NARD Neck - right HD catheter in place and curently being accessed Chest - lungs clear anteriorly. decreased BS in the flanks. nml RR CV - RRR S1/S2. Tele showing no significant dysrhythmias Abd - Soft, epigastric pain but improved, +BS - Foster secured with small amount of urine in the bag Ext - No pedal edema Neuro - awake and less obtunded. Psych - Nml mood Skin - Warm and dry Objective Data Vital Signs Vital Signs: Vital Signs - 24 hr 08/21/23 11:39 08/21/23 12:00 08/21/23 15:34 Temperature 98.4 F 97.8 F Pulse Rate 109 H 115 H 111 H Pulse Rate [Monitor] Respiratory Rate 20 20 Blood Pressure 164/83 H 152/78 H Pulse Oximetry 93 99 Oxygen Delivery 08/21/23 15:59 08/21/23 16:11 08/21/23 16:15 Temperature 97.9 F Pulse Rate 113 H 117 H 113 H Pulse Rate [Monitor] Respiratory Rate 18 Blood Pressure 164/113 H 157/93 H 154/88 H Pulse Oximetry Oxygen Delivery 08/21/23 16:30 08/21/23 16:45 08/21/23 17:00 Temperature Pulse Rate 117 H 119 H 120 H Pulse Rate [Monitor] Respiratory Rate Blood Pressure 147/96 H 143/87 H 126/76 Pulse Oximetry Oxygen Delivery 08/21/23 17:15 08/21/23 17:30 08/21/23 17:45 Temperature Pulse Rate 120 H 120 H 119 H Pulse Rate [Monitor] Respiratory Rate Blood Pressure 155/93 H 132/88 155/83 H Pulse Oximetry Oxygen Delivery 08/21/23 18:00 08/21/23 18:15 08/21/23 18:30 Temperature Pulse Rate 116 H 113 H 111 H Pulse Rate [Monitor] Respiratory Rate Blood Pressure 148/85 H 146/79 H 149/82 H Pulse Oximetry Oxygen Delivery 08/21/23 18:43 08/21/23 14:00 08/21/23 16:00 Temperature Pulse Rate 112 H 114 H 117 H Pulse Rate [Monitor] Respiratory Rate Blood Pressure 159/90 H Pulse Oximetry Oxygen Delivery 08/21/23 18:00 08/21/23 12:00 08/21/23 16:00 Temperature Pulse Rate 114 H Pulse Rate [Monitor] Respiratory Rate Blood Pressure Pulse Oximetry Oxygen Delivery Room Air Room Air 08/21/23 18:55 08/21/23 20:33 08/21/23 21:29 Temperature 98.1 F 98.5 F Pulse Rate 117 H 125 H Pulse Rate [Monitor] Respiratory Rate 18 20 Blood Pressure 157/86 H 170/128 H 163/83 H Pulse Oximetry 92 Oxygen Delivery 08/21/23 20:00 08/21/23 20:00 08/21/23 20:00 Temperature Pulse Rate 125 H 124 H Pulse Rate [Monitor] 125 H Respiratory Rate 20 Blood Pressure 170/128 H Pulse Oximetry 92 Oxygen Delivery Room Air 08/21/23 22:00 08/21/23 23:32 08/21/23 23:42 Temperature 98.4 F Pulse Rate 125 H 124 H Pulse Rate [Monitor] 124 H Respiratory Rate 16 Blood Pressure 128/69 128/69 Pulse Oximetry 90 Oxygen Delivery 08/21/23 23:42 08/22/23 00:00 08/22/23 01:42 Temperature Pulse Rate 124 H 120 H 121 H Pulse Rate [Monitor] Respiratory Rate 16 Blood Pressure Pulse Oximetry 90 Oxygen Delivery Room Air 08/22/23 02:59 08/22/23 03:09 08/22/23 03:02 Temperature 98.7 F Pulse Rate 117 H 117 H Pulse Rate [Monitor] 117 H Respiratory Rate 19 19 Blood Pressure 148/78 H 148/78 H Pulse Oximetry 94 94 Oxygen Delivery Room Air 08/22/23 04:00 08/22/23 06:00 08/22/23 07:42 Temperature 97.5 F L Pulse Rate 111 H 105 H 106 H Pulse Rate [Monitor] Respiratory Rate 20 Blood Pressure 148/87 H Pulse Oximetry 95 Oxygen Delivery 08/22/23 08:06 08/22/23 08:19 08/22/23 08:30 Temperature 98.2 F Pulse Rate 105 H 109 H 107 H Pulse Rate [Monitor] Respiratory Rate 18 Blood Pressure 169/88 H 153/90 H 143/82 H Pulse Oximetry Oxygen Delivery 08/22/23 08:45 08/22/23 09:00 08/22/23 09:15 Temperature Pulse Rate 107 H 107 H 108 H Pulse Rate [Monitor] Respiratory Rate Blood Pressure 150/70 H 154/70 H 144/72 H Pulse Oximetry Oxygen Delivery 08/22/23 09:30 08/22/23 09:45 Temperature Pulse Rate 107 H 108 H Pulse Rate [Monitor] Respiratory Rate Blood Pressure 153/75 H 147/77 H Pulse Oximetry Oxygen Delivery Intake/Output Intake/Output: Intake & Output 08/19/23 08/20/23 08/21/23 08/22/23 23:59 23:59 23:59 23:59 Intake Total 100 4091.7 1060.4 250 Output Total 125 1195 0 Balance 100 3966.7 -134.6 250 Meds/Results Medications: Active Medications Generic Name Dose Route Start Last Admin Trade Name Freq PRN Reason Stop Dose Admin Acetaminophen 650 mg 08/20/23 02:20 Acetaminophen 650 Mg Suppository RECTAL Q6H PRN Mild Pain (1-3) or Fever Chlordiazepoxide HCl 25 mg 08/20/23 11:05 Chlordiazepoxide (*Crx) 25 Mg Capsule PO Q6HR PRN withdrawal Dextrose 12.5 gm 08/20/23 02:25 Dextrose 50% 25 Gm/50 Ml Syringe IV PUSH PRN PRN Hypoglycemia Protocol Epoetin Toñito-epbx 10,000 units 08/22/23 20:00 Epoetin Toñito-Epbx 10,000 Units/Ml Vial IV PUSH 08/22/23 20:01 ONCE ONE Folic Acid 1 mg 08/21/23 09:00 08/21/23 12:09 Folic Acid 1 Mg/0.2 Ml Inj IV PUSH 1 mg QAM ANUJA Administration Glucagon 1 mg 08/20/23 02:25 Glucagon For Inj 1 Mg Vial IM PRN PRN Hypoglycemia Protocol Glucose 15 gm 08/20/23 02:25 Glucose Oral Gel 15 Gm Of Glucse In 37.5 Gm Tube PO PRN PRN Hypoglycemia Protocol Hydralazine HCl 10 mg 08/20/23 11:02 08/21/23 20:38 Hydralazine Hcl 20 Mg/Ml Vial IV PUSH 10 mg Q8H PRN Administration Blood Pressure - High Dextrose 1,000 mls @ 100 mls/hr 08/20/23 02:25 Dextrose 5% 1,000 Ml IVPB PRN PRN Hypoglycemia Protocol Albumin Human 50 mls @ 999 mls/hr 08/21/23 11:04 Albutein IVPB 09/20/23 11:03 Q10M PRN HYPOTENSION Insulin Aspart 2 - 5 units 08/20/23 12:00 08/22/23 06:24 Insulin Aspart (*Bkc) 100 Units/Ml SUB-Q Not Given Q6HR ANUJA Protocol Lorazepam 2 mg 08/20/23 04:50 Lorazepam Inj (*Crx) 2 Mg/Ml Vial IV PUSH Q2H PRN CIWA > 15 Ondansetron HCl 4 mg 08/20/23 02:20 Ondansetron Inj 4 Mg/2 Ml Vial IV PUSH Q4H PRN Nausea Pantoprazole Sodium 40 mg 08/21/23 09:00 08/21/23 12:10 Pantoprazole Sodium Iv 40 Mg Vial IV PUSH 40 mg QAM ANUJA Administration Sodium Chloride 20 ml 08/19/23 21:40 Central Line Flush IV PUSH PRN PRN after blood draws Sodium Chloride 10 ml 08/19/23 21:40 Central Line Flush IV PUSH PRN PRN with TPN bag changes Sodium Chloride 10 ml 08/19/23 22:00 08/22/23 06:30 Central Line Flush IV PUSH 10 ml Q8HR ANUJA Administration Sodium Chloride 10 ml 08/21/23 14:00 08/22/23 06:30 Central Line Flush IV PUSH 10 ml Q8HR ANUJA Administration Sodium Chloride 20 ml 08/21/23 10:22 Central Line Flush IV PUSH PRN PRN after blood draws Thiamine HCl 100 mg 08/20/23 09:00 08/21/23 12:10 Thiamine Hcl 200 Mg/2 Ml Vial IV PUSH 100 mg DAILY ANUJA Administration Radiology Results: ITS Impressions Abdomen/Pelvis CT 08/19/23 22:34 IMPRESSION: 1. Acute pancreatitis. 2: Severe degenerative changes at L4-5 and L5-S1 with deformity of the endplates at L4-5. Consider discitis/osteomyelitis in the appropriate clinical setting. If there is concern for discitis, further evaluation with MRI lumbar spine without and with contrast recommended. Head CT 08/20/23 05:43 Impression: No significant abnormality seen. Upper Quadrant Ultrasound 08/20/23 18:10 IMPRESSION: 1: Mild intrahepatic biliary dilatation. Chest X-Ray 08/22/23 06:50 IMPRESSION: 1. Resolution of prior mild pulmonary edema with additional unchanged atelectasis and/or pneumonia at the bilateral lung bases. 2. Small left pleural effusion. Labs Labs: Laboratory Results - last 24 hr 08/21/23 08/21/23 08/21/23 11:25 17:51 23:28 WBC RBC Hgb Hct MCV MCH MCHC RDW Plt Count MPV Immature Gran % (Auto) Neut % (Auto) Lymph % (Auto) Chambers % (Auto) Eos % (Auto) Baso % (Auto) Lymph # (Auto) Chambers # (Auto) Eos # (Auto) Baso # (Auto) Abs Immat Gran (auto) Absolute Neuts (auto) Absolute Nucleated RBC Nucleated RBC % Sodium Potassium Chloride Carbon Dioxide Anion Gap BUN Creatinine Estim Creat Clear Calc Estimated GFR Glucose POC Capillary Glucose 123 H 101 94 Calcium Phosphorus Magnesium Total Bilirubin AST ALT Alkaline Phosphatase Total Protein Albumin Lipase Random Vancomycin 08/22/23 04:40 WBC 11.0 H RBC 3.05 L Hgb 9.2 L Hct 28.5 L MCV 93.4 MCH 30.2 MCHC 32.3 RDW 16.7 H Plt Count 204 MPV 10.7 H Immature Gran % (Auto) 0.5 Neut % (Auto) 78.6 H Lymph % (Auto) 6.6 L Chambers % (Auto) 10.4 H Eos % (Auto) 3.6 Baso % (Auto) 0.3 Lymph # (Auto) 0.73 L Chambers # (Auto) 1.2 H Eos # (Auto) 0.4 H Baso # (Auto) 0.0 Abs Immat Gran (auto) 0.05 H Absolute Neuts (auto) 8.7 H Absolute Nucleated RBC 0.000 Nucleated RBC % 0.0 Sodium 135 L Potassium 4.6 Chloride 100 Carbon Dioxide 27 Anion Gap 8 BUN 55 H D Creatinine 12.50 H Estim Creat Clear Calc 6 Estimated GFR 4 L Glucose 98 POC Capillary Glucose Calcium 8.7 Phosphorus 5.9 H Magnesium 1.9 Total Bilirubin 0.4 AST 16 L ALT 12 Alkaline Phosphatase 82 Total Protein 5.0 L Albumin 3.0 L Lipase 3352 H Random Vancomycin 36.5 H
[2023-08-22] MEDS: EPOETIN ALFA-EPBX 10,000 UNITS/ML VIAL 10000 UNITS IV PUSH (10:59)
--- NOTE | 2023-08-22 11:10 | P.PNNP_ITS ---
Progress Note: A&P Assessment and Plan (1) SANG (acute kidney injury): Code(s): N17.9 - Acute kidney failure, unspecified Status: Acute Assessment and Plan: * assuming normal renal function at baseline * however, creatinine noted to be elevated at 5.7mg/dl several days ago prior to admission * creatinine on admission 16.5mg/dl associated with hyperkalemia and metabolic acidosis * evaluation to date: * CT of abd/pelvis - kidneys unremarkable * CPK okay * urine electrolytes non-prerenal * urine eosinophils negative * proteinuria noted * minimal urine output noted since admission * confusion/AMS may be related to uremia as well * suspect multifactorial etiology: * secondary to antibiotics (?) - high vancomycin level noted * ongoing use of metformin + ARB + HCTZ prior to admission * pancreatitis * nausea/vomiting/diarrhea * prerenal factors * element of CKD present? -- known history of HTN and DM * follow-up serologies testing * HD today * follow repeat labs and UOP to assess for renal recovery (2) Acute hyperkalemia: Code(s): E87.5 - Hyperkalemia Status: Acute Assessment and Plan: * improvement with medical management * dialysis should help maintain stability * follow trend of potassium levels (3) Metabolic acidosis: Code(s): E87.20 - Acidosis, unspecified Status: Acute Assessment and Plan: * due to a few issues: * from SANG/ARF (and inability to clear uremic toxins) * lactic acidosis (complicated by metformin use prior to admission) * possible infection (known hx of osteomyelitis and missed antibiotic doses...) * admission ABG noted * dilaysis should help compensate * follow trend of CO2 (4) Acute pancreatitis: Qualifiers: Acute pancreatitis complication: unspecified Pancreatitis type: unspecified pancreatitis type Qualified Code(s): K85.90 - Acute pancreatitis without necrosis or infection, unspecified Code(s): K85.90 - Acute pancreatitis without necrosis or infection, unspecified Status: Acute Assessment and Plan: * noted by history of abdominal pain, nausea, vomiting and diarrhea in association with elevated lipase * trending lipase levels * confirmed by CT scan -- no mention of gallbladder disease or gall stones * RUQ ultrasound and triglycerides okay * advance diet as tolerated * pain control (5) Altered mental status: Code(s): R41.82 - Altered mental status, unspecified Status: Acute Assessment and Plan: * noted on admission * however, awake and alert for the most part but difficult noted providing history that led to admisson * CT of brain negative * highly suspect related to uremic encephalopathy and SANG/ARF * follow mental status with dialytic intervention (6) Essential hypertension: Code(s): I10 - Essential (primary) hypertension Status: Acute Assessment and Plan: * reasonable control at this time * holding ARB and HCTZ given #1 * hydralazine PRN * follow trend of hemodynamics (7) Alcoholism: Code(s): F10.20 - Alcohol dependence, uncomplicated Status: Acute Assessment and Plan: * known long standing history * on thiamine and folate * [facility] protocol (8) Hx of osteomyelitis: Code(s): Z87.39 - Personal history of other diseases of the musculoskeletal system and connective tissue Status: Acute Assessment and Plan: * reported history from Jun 2023 hospitalization * had been on outpatient IV antibiotics since that time * antibiotics to blame for #1 (?) * follow repeat culture data * follow vancomycin levels (9) Diabetes mellitus: Code(s): E11.9 - Type 2 diabetes mellitus without complications Status: Acute Assessment and Plan: * follow accu-cheks * glycemic control per hospitalists Will continue to follow. Subjective Date/time seen: 08/22/23 11:10 Interval history: Follow-up for acute kidney injury/acute renal failure. Tolerating hemodialysis treatment at the time of my visit (seen on HD at 11:00AM); tolerated dialysis treatment yesterday without any issues or problems; advanced to clear liquids but oral intake continue to fluctuate due to abdominal discomfort; reports more fatigue today as well. Exam Narrative: General: WD/WN male in NAD Heart: tachycardic; normal S1 and S2; no rub Lungs: decreased at the bases Abdomen: soft, +TTP, hypoactive bowel sounds Extremities: no cyanosis or clubbing; no edema Skin: warm and intact Objective Data Vital Signs Vital Signs: Vital Signs Temp Pulse Pulse Resp BP Pulse Ox O2 Del Method 08/22/23 11:00 107 H 162/92 H 08/22/23 10:45 109 H 172/92 H 08/22/23 10:30 107 H 142/90 H 08/22/23 10:15 111 H 168/86 H 08/22/23 10:00 116 H 143/81 H 08/22/23 08:00 117 H 19 94 Room Air 08/22/23 09:45 108 H 147/77 H 08/22/23 09:30 107 H 153/75 H 08/22/23 09:15 108 H 144/72 H 08/22/23 09:00 107 H 154/70 H 08/22/23 08:45 107 H 150/70 H 08/22/23 08:30 107 H 143/82 H 08/22/23 08:19 109 H 153/90 H 08/22/23 08:06 98.2 F 105 H 18 169/88 H 08/22/23 07:42 97.5 F L 106 H 20 148/87 H 95 08/22/23 06:00 105 H 08/22/23 04:00 111 H 08/22/23 03:02 117 H 19 94 Room Air 08/22/23 03:09 117 H 148/78 H 08/22/23 02:59 98.7 F 117 H 19 148/78 H 94 08/22/23 01:42 121 H 08/22/23 00:00 120 H 08/21/23 23:42 124 H 16 90 Room Air 08/21/23 23:42 124 H 128/69 08/21/23 23:32 98.4 F 124 H 16 128/69 90 08/21/23 22:00 125 H 08/21/23 20:00 124 H 08/21/23 20:00 125 H 20 92 Room Air 08/21/23 20:00 125 H 170/128 H 08/21/23 21:29 163/83 H 08/21/23 20:33 98.5 F 125 H 20 170/128 H 92 08/21/23 18:55 98.1 F 117 H 18 157/86 H 08/21/23 16:00 Room Air 08/21/23 18:00 114 H 08/21/23 16:00 117 H 08/21/23 18:43 112 H 159/90 H 08/21/23 18:30 111 H 149/82 H 08/21/23 18:15 113 H 146/79 H 08/21/23 18:00 116 H 148/85 H 08/21/23 17:45 119 H 155/83 H 08/21/23 17:30 120 H 132/88 08/21/23 17:15 120 H 155/93 H 08/21/23 17:00 120 H 126/76 08/21/23 16:45 119 H 143/87 H 08/21/23 16:30 117 H 147/96 H 08/21/23 16:15 113 H 154/88 H 08/21/23 16:11 117 H 157/93 H 08/21/23 15:59 97.9 F 113 H 18 164/113 H 08/21/23 15:34 97.8 F 111 H 20 152/78 H 99 Intake/Output Intake/Output: Intake & Output 08/19/23 08/20/23 08/21/23 08/22/23 23:59 23:59 23:59 23:59 Intake Total 100 4091.7 1060.4 250 Output Total 125 1195 500 Balance 100 3966.7 -134.6 -250 Meds/Results Medications: Active Medications Generic Name Dose Route Start Last Admin Trade Name Freq PRN Reason Stop Dose Admin Acetaminophen 650 mg 08/20/23 02:20 Acetaminophen 650 Mg Suppository RECTAL Q6H PRN Mild Pain (1-3) or Fever Dextrose 12.5 gm 08/20/23 02:25 Dextrose 50% 25 Gm/50 Ml Syringe IV PUSH PRN PRN Hypoglycemia Protocol Epoetin Toñito-epbx 10,000 units 08/22/23 20:00 08/22/23 10:59 Epoetin Toñito-Epbx 10,000 Units/Ml Vial IV PUSH 08/22/23 20:01 10,000 units ONCE ONE Administration Folic Acid 1 mg 08/21/23 09:00 08/22/23 12:33 Folic Acid 1 Mg/0.2 Ml Inj IV PUSH 1 mg QAM ANUJA Administration Glucagon 1 mg 08/20/23 02:25 Glucagon For Inj 1 Mg Vial IM PRN PRN Hypoglycemia Protocol Glucose 15 gm 08/20/23 02:25 Glucose Oral Gel 15 Gm Of Glucse In 37.5 Gm Tube PO PRN PRN Hypoglycemia Protocol Hydralazine HCl 10 mg 08/20/23 11:02 08/21/23 20:38 Hydralazine Hcl 20 Mg/Ml Vial IV PUSH 10 mg Q8H PRN Administration Blood Pressure - High Dextrose 1,000 mls @ 100 mls/hr 08/20/23 02:25 Dextrose 5% 1,000 Ml IVPB PRN PRN Hypoglycemia Protocol Albumin Human 50 mls @ 999 mls/hr 08/21/23 11:04 Albutein IVPB 09/20/23 11:03 Q10M PRN HYPOTENSION Insulin Aspart 2 - 5 units 08/20/23 12:00 08/22/23 12:58 Insulin Aspart (*Bkc) 100 Units/Ml SUB-Q Not Given Q6HR ANUJA Protocol Ondansetron HCl 4 mg 08/20/23 02:20 Ondansetron Inj 4 Mg/2 Ml Vial IV PUSH Q4H PRN Nausea Pantoprazole Sodium 40 mg 08/21/23 09:00 08/22/23 12:31 Pantoprazole Sodium Iv 40 Mg Vial IV PUSH 40 mg QAM ANUJA Administration Sodium Chloride 20 ml 08/19/23 21:40 Central Line Flush IV PUSH PRN PRN after blood draws Sodium Chloride 10 ml 08/19/23 21:40 Central Line Flush IV PUSH PRN PRN with TPN bag changes Sodium Chloride 10 ml 08/19/23 22:00 08/22/23 13:59 Central Line Flush IV PUSH 10 ml Q8HR ANUJA Administration Sodium Chloride 10 ml 08/21/23 14:00 08/22/23 13:58 Central Line Flush IV PUSH 10 ml Q8HR ANUJA Administration Sodium Chloride 20 ml 08/21/23 10:22 Central Line Flush IV PUSH PRN PRN after blood draws Thiamine HCl 100 mg 08/20/23 09:00 08/22/23 12:31 Thiamine Hcl 200 Mg/2 Ml Vial IV PUSH 100 mg DAILY ANUJA Administration Radiology Results: ITS Impressions Abdomen/Pelvis CT 08/19/23 22:34 IMPRESSION: 1. Acute pancreatitis. 2: Severe degenerative changes at L4-5 and L5-S1 with deformity of the endplates at L4-5. Consider discitis/osteomyelitis in the appropriate clinical setting. If there is concern for discitis, further evaluation with MRI lumbar spine without and with contrast recommended. Head CT 08/20/23 05:43 Impression: No significant abnormality seen. Upper Quadrant Ultrasound 08/20/23 18:10 IMPRESSION: 1: Mild intrahepatic biliary dilatation. Chest X-Ray 08/22/23 06:50 IMPRESSION: 1. Resolution of prior mild pulmonary edema with additional unchanged atelectasis and/or pneumonia at the bilateral lung bases. 2. Small left pleural effusion. Labs Labs: Laboratory Tests 08/22/23 04:40 08/22/23 04:40 Calcium 8.7 Phosphorus 5.9 H Magnesium 1.9 Total Bilirubin 0.4 AST 16 L ALT 12 Alkaline Phosphatase 82 Total Protein 5.0 L Albumin 3.0 L Microbiology 08/20/23 04:53 Blood Blood Culture - Preliminary 08/20/23 04:57 Blood Blood Culture - Preliminary [facility] Follow-up Billing Additional Procedures Additional Procedure: [id number] Hemodialysis
[2023-08-22] MEDS: THIAMINE HCL 200 MG/2 ML VIAL 100 MG IV PUSH (12:31)
[2023-08-22] MEDS: PANTOPRAZOLE SODIUM IV 40 MG VIAL IV PUSH (12:31)
[2023-08-22] MEDS: FOLIC ACID 1 MG/0.2 ML INJ IV PUSH (12:33)
[2023-08-22 12:48] LABS: Glucose Point of Care 125 mg/dl (65-105)
[2023-08-22] MEDS: HYDROcodone/acetaminophen (*CRX) 5-325 MG TABLET 1 TAB PO ×2 (13:54→20:11)
[2023-08-22 18:08] LABS: Glucose Point of Care 180 mg/dl (65-105)
[2023-08-22] MEDS: BISACODYL 10 MG SUPPOSITORY RECTAL (20:11)
[2023-08-23] VITALS (10 sets, daily range): BP systolic 143–173; BP diastolic 80–89; PULSE 99–121; RESP 16–22; TEMP 36.6–37.4; O2SAT 93–97
[2023-08-23 00:51] LABS: Glucose Point of Care 117 mg/dl (65-105)
[2023-08-23] MEDS: CENTRAL LINE FLUSH 20 ML IV PUSH (03:51)
[2023-08-23] MEDS: CENTRAL LINE FLUSH 10 ML IV PUSH ×6 (03:51→23:48)
[2023-08-23] MEDS: HYDROcodone/acetaminophen (*CRX) 5-325 MG TABLET 1 TAB PO ×3 (04:02→21:50)
[2023-08-23 04:05] LABS: Basophils Percent Auto 0.2 % (0.2-1.2); Eosinophils Absolute Auto 0.4 K/mm3 (0-0.3); Eosinophils Percent Auto 4.4 % (0-4.4); Hematocrit 25.7 % (42.0-52.0); Hemoglobin 8.5 g/dL (14.0-18.0); Immature Granulocyte Absolute 0.04 K/mm3 (0.00-0.031); Immature Granulocyte Percent A 0.4 % (0-0.5); Lymphocytes Absolute Auto 0.97 K/mm3 (0.9-3.2); Lymphocytes Percent Auto 10.1 % (18.3-44.2); Mean Corpuscular HGB Conc 33.1 g/dl (32-36); Mean Corpuscular Hemoglobin 30.9 pg (26-34); Mean Corpuscular Volume 93.5 fl (80-100); Mean Platelet Volume 10.5 fl (7.4-10.4); Monocytes Percent Auto 10.8 % (2.6-8.5); Neutrophils Absolute Auto 7.1 K/mm3 (1.3-6.7); Neutrophils Percent Auto 74.1 % (45.5-73.1); Platelet Count Result 202 k/mm3 (150-375); Red Blood Count 2.75 M/mm3 (4.6-6.20); Red Cell Distribution Width 17.1 % (11.5-14.5); White Blood Count 9.6 K/mm3 (4.5-10.0)
[2023-08-23 04:22] LABS: Alanine Aminotransferase 12 U/L (6-50); Albumin Level 2.9 g/dL (3.5-5.1); Alkaline Phosphatase 84 U/L (38-126); Anion Gap 8 mmol/L (4-12); Aspartate Amino Transferase 19 U/L (17-59); Bilirubin,Total 0.5 mg/dL (0.2-1.3); Blood Urea Nitrogen 33 mg/dL (9-20); Carbon Dioxide 27 mmol/L (22-30); Chloride 102 mmol/L (98-107); Estimated CRCL calculation 8 ml/min; Estimated Glomerular Filt Rate 6; Glucose 103 mg/dL (65-110); Lipase 1513 U/L (23-300); Magnesium 1.9 mg/dL (1.6-2.3); Phosphorus 4.4 mg/dL (2.5-4.5); Potassium 4.5 mmol/L (3.4-5.0); Sodium 137 mmol/L (137-145)
[2023-08-23 06:40] LABS: Glucose Point of Care 93 mg/dl (65-105)
[2023-08-23] MEDS: FOLIC ACID 1 MG/0.2 ML INJ IV PUSH (09:48)
[2023-08-23] MEDS: THIAMINE HCL 200 MG/2 ML VIAL 100 MG IV PUSH (09:48)
[2023-08-23] MEDS: PANTOPRAZOLE 40 MG TABLET PO (09:48)
--- NOTE | 2023-08-23 11:04 | P.PNNP_ITS ---
Progress Note: A&P Assessment and Plan (1) SANG (acute kidney injury): Code(s): N17.9 - Acute kidney failure, unspecified Status: Acute Assessment and Plan: * assuming normal renal function at baseline * however, creatinine noted to be elevated at 5.7mg/dl several days ago prior to admission * creatinine on admission 16.5mg/dl associated with hyperkalemia and metabolic acidosis * evaluation to date: * CT of abd/pelvis - kidneys unremarkable * CPK okay * urine electrolytes non-prerenal * urine eosinophils negative * proteinuria noted * minimal urine output noted since admission * admission confusion/AMS related to uremia (given improvement following [employer]/dialysis) * suspect multifactorial etiology: * secondary to antibiotics (?) - high vancomycin level noted * ongoing use of metformin + ARB + HCTZ prior to admission * pancreatitis * nausea/vomiting/diarrhea * prerenal factors * element of CKD present? -- known history of HTN and DM * follow-up serological testing * tentatively plan HD tomorrow * discussed the possible need for a renal biopsy * follow repeat labs and UOP to assess for renal recovery (2) Acute hyperkalemia: Code(s): E87.5 - Hyperkalemia Status: Acute Assessment and Plan: * improvement with medical management * dialysis has also helped maintain stability * follow trend of potassium levels (3) Metabolic acidosis: Code(s): E87.20 - Acidosis, unspecified Status: Acute Assessment and Plan: * corrected * due to a few issues: * from SANG/ARF (and inability to clear uremic toxins) * lactic acidosis (complicated by metformin use prior to admission) * possible infection (known hx of osteomyelitis and missed antibiotic doses...) * admission ABG noted * dialysis should help compensate * follow trend of CO2 (4) Acute pancreatitis: Qualifiers: Acute pancreatitis complication: unspecified Pancreatitis type: unspecified pancreatitis type Qualified Code(s): K85.90 - Acute pancreatitis without necrosis or infection, unspecified Code(s): K85.90 - Acute pancreatitis without necrosis or infection, unspecified Status: Acute Assessment and Plan: * noted by history of abdominal pain, nausea, vomiting and diarrhea in association with elevated lipase * trending lipase levels * confirmed by CT scan -- no mention of gallbladder disease or gall stones * RUQ ultrasound and triglycerides okay * advance diet as tolerated * pain control (5) Altered mental status: Code(s): R41.82 - Altered mental status, unspecified Status: Acute Assessment and Plan: * improved * noted on admission * however, awake and alert for the most part but difficult noted providing hist ory that led to admission * CT of brain negative * highly suspect related to uremic encephalopathy and SANG/ARF given improvement with dialytic intervention * follow mental status (6) Essential hypertension: Code(s): I10 - Essential (primary) hypertension Status: Acute Assessment and Plan: * running high at this time * holding ARB and HCTZ given #1 * hydralazine PRN * follow trend of hemodynamics (7) Alcoholism: Code(s): F10.20 - Alcohol dependence, uncomplicated Status: Acute Assessment and Plan: * known long standing history * on thiamine and folate * [facility] protocol (8) Hx of osteomyelitis: Code(s): Z87.39 - Personal history of other diseases of the musculoskeletal system and connective tissue Status: Acute Assessment and Plan: * reported history from Jun 2023 hospitalization * had been on outpatient IV antibiotics since that time * antibiotics to blame for #1 (?) * follow repeat culture data * follow vancomycin levels (9) Diabetes mellitus: Code(s): E11.9 - Type 2 diabetes mellitus without complications Status: Acute Assessment and Plan: * follow accu-cheks * glycemic control per hospitalists Long and lengthy discussion ( greater than 20 minutes) with the patient as well as his son at bedside regarding his severe renal dysfunction on presentation and the need for renal replacement therapy / dialysis in attempt to stabilize this issue. A significant workup and evaluation has been initiated but it would seem that would ever insult affected his kidney has been quite severe as he is not making very much urine and he had a significant metabolic acidosis in association with hyperkalemia on presentation to the hospital. I did discuss with him the possibility of doing a renal biopsy for more definitive answer as to the etiology of his acute kidney injury/acute renal failure as this also may help provide a prognosis with regard to his renal dysfunction and whether or not dialysis may be needed only short-term versus long-term. I discussed with the patient the procedure of a renal biopsy, the risks, the benefits, the pros, cons and he seems to be willing to proceed with this intervention. I answered the questions that the patient as well as his son had to the best of my abilities. Will continue to follow. Subjective Date/time seen: 08/23/23 11:04 Interval history: Follow-up for acute kidney injury/acute renal failure. Tolerated dialysis yesterday without any issues or problems; report feeling better in general with more clear thinking and concentration; unfortunately, still not making much urine and his oral intake is limited by abdominal pain when he attempts to eat; his son is present in the room and we discussed the situation. Exam Narrative: General: WD/WN male in NAD Heart: tachycardic; normal S1 and S2; no rub Lungs: decreased at the bases Abdomen: soft, +TTP, hypoactive bowel sounds Extremities: no cyanosis or clubbing; no edema Skin: no rahs Objective Data Vital Signs Vital Signs: Vital Signs Temp Pulse Resp BP Pulse Ox O2 Del Method 08/23/23 11:00 98.9 F 100 16 173/81 H 96 08/23/23 08:00 Room Air 08/23/23 08:06 98.8 F 102 H 18 143/84 H 97 08/23/23 06:00 99 08/23/23 04:00 104 H 18 94 Room Air 08/23/23 04:00 103 H 08/23/23 03:43 99.3 F 104 H 18 168/83 H 94 08/23/23 01:37 106 H 08/23/23 00:00 109 H 08/23/23 00:00 121 H 20 93 Room Air 08/23/23 00:22 98.6 F 121 H 20 146/80 H 93 08/22/23 22:00 108 H 08/22/23 20:00 105 H 08/22/23 20:00 106 H 25 H 94 Room Air 08/22/23 20:05 98.1 F 106 H 25 H 154/87 H 94 08/22/23 18:00 110 H Intake/Output Intake/Output: Intake & Output 08/20/23 08/21/23 08/22/23 08/23/23 23:59 23:59 23:59 23:59 Intake Total 4091.7 1060.4 750 140 Output Total 125 1195 575 30 Balance 3966.7 -134.6 175 110 Meds/Results Medications: Active Medications Generic Name Dose Route Start Last Admin Trade Name Freq PRN Reason Stop Dose Admin Acetaminophen 650 mg 08/22/23 17:29 Acetaminophen 650 Mg Suppository RECTAL Q6H PRN Pain Rated 5 or Less Hydrocodone Bitart/Acetaminophen 1 tab 08/22/23 17:28 08/23/23 16:11 Hydrocodone/Acetaminophen (*Crx) 5-325 Mg Tablet PO 1 tab Q6H PRN Administration Pain Rated 6 or Greater Amlodipine Besylate 2.5 mg 08/23/23 12:40 08/23/23 13:02 Amlodipine Besylate 2.5 Mg Tablet PO 2.5 mg QAM ANUJA Administration Dextrose 12.5 gm 08/20/23 02:25 Dextrose 50% 25 Gm/50 Ml Syringe IV PUSH PRN PRN Hypoglycemia Protocol Folic Acid 1 mg 08/21/23 09:00 08/23/23 09:48 Folic Acid 1 Mg/0.2 Ml Inj IV PUSH 1 mg QAM ANUJA Administration Glucagon 1 mg 08/20/23 02:25 Glucagon For Inj 1 Mg Vial IM PRN PRN Hypoglycemia Protocol Glucose 15 gm 08/20/23 02:25 Glucose Oral Gel 15 Gm Of Glucse In 37.5 Gm Tube PO PRN PRN Hypoglycemia Protocol Hydralazine HCl 10 mg 08/20/23 11:02 08/21/23 20:38 Hydralazine Hcl 20 Mg/Ml Vial IV PUSH 10 mg Q8H PRN Administration Blood Pressure - High Dextrose 1,000 mls @ 100 mls/hr 08/20/23 02:25 Dextrose 5% 1,000 Ml IVPB PRN PRN Hypoglycemia Protocol Albumin Human 50 mls @ 999 mls/hr 08/21/23 11:04 Albutein IVPB 09/20/23 11:03 Q10M PRN HYPOTENSION Insulin Aspart 2 - 5 units 08/20/23 12:00 08/23/23 12:57 Insulin Aspart (*Bkc) 100 Units/Ml SUB-Q Not Given Q6HR ON LICENSE OF [facility] Protocol Ondansetron HCl 4 mg 08/20/23 02:20 Ondansetron Inj 4 Mg/2 Ml Vial IV PUSH Q4H PRN Nausea Pantoprazole Sodium 40 mg 08/23/23 09:00 08/23/23 09:48 Pantoprazole 40 Mg Tablet PO 40 mg QAM ANUJA Administration Rosuvastatin Calcium 20 mg 08/24/23 09:00 Rosuvastatin 20 Mg Tablet PO DAILY ANUJA Sodium Chloride 20 ml 08/19/23 21:40 Central Line Flush IV PUSH PRN PRN after blood draws Sodium Chloride 10 ml 08/19/23 21:40 Central Line Flush IV PUSH PRN PRN with TPN bag changes Sodium Chloride 10 ml 08/19/23 22:00 08/23/23 13:02 Central Line Flush IV PUSH 10 ml Q8HR ANUJA Administration Sodium Chloride 10 ml 08/21/23 14:00 08/23/23 13:02 Central Line Flush IV PUSH 10 ml Q8HR ANUJA Administration Sodium Chloride 20 ml 08/21/23 10:22 08/23/23 03:51 Central Line Flush IV PUSH 20 ml PRN PRN Administration after blood draws Thiamine HCl 100 mg 08/20/23 09:00 08/23/23 09:48 Thiamine Hcl 200 Mg/2 Ml Vial IV PUSH 100 mg DAILY ANUJA Administration Radiology Results: ITS Impressions Abdomen/Pelvis CT 08/19/23 22:34 IMPRESSION: 1. Acute pancreatitis. 2: Severe degenerative changes at L4-5 and L5-S1 with deformity of the endplates at L4-5. Consider discitis/osteomyelitis in the appropriate clinical setting. If there is concern for discitis, further evaluation with MRI lumbar spine without and with contrast recommended. Head CT 08/20/23 05:43 Impression: No significant abnormality seen. Upper Quadrant Ultrasound 08/20/23 18:10 IMPRESSION: 1: Mild intrahepatic biliary dilatation. Chest X-Ray 08/22/23 06:50 IMPRESSION: 1. Resolution of prior mild pulmonary edema with additional unchanged atelectasis and/or pneumonia at the bilateral lung bases. 2. Small left pleural effusion. Abdomen X-Ray 08/22/23 19:52 IMPRESSION: 1. Normal bowel gas pattern. Labs Labs: Laboratory Tests 08/23/23 03:58 08/23/23 03:58 Calcium 9.0 Phosphorus 4.4 Magnesium 1.9 Total Bilirubin 0.5 AST 19 ALT 12 Alkaline Phosphatase 84 Total Protein 5.0 L Albumin 2.9 L Lipase 1513 H [facility] Follow-up Billing Hospital Follow-up Hospital Follow[facility]up[facility] [id number] [facility] [place] [facility]
--- NOTE | 2023-08-23 12:13 | PM.IMPN ---
Progress Note: A&P Assessment and Plan (1) Acute renal failure: Qualifiers: Acute renal failure type: unspecified Qualified Code(s): N17.9 - Acute kidney failure, unspecified Code(s): N17.9 - Acute kidney failure, unspecified Status: Acute Assessment and Plan: Patient presumably has no underlying kidney problems. Creatinine was 5.7 few days prior to admission on routine labs. Creatinine here was 16.5 with a BUN of 90. He had hyperkalemia and severe metabolic gap acidosis. CXR clear. Patient was started on a bicarb drip and potassium was treated appropriately. Potassium normal and metabolic acidosis better. Renal function was unchanged and urine output essentially anuric. Etiology unclear but Vanco random level elevated at 43. Total CK was normal. Suspect related to dehydration, medications, vanco toxicity and underlying renal disease (DM, HTN?) Nephrology was consulted and appreciate their input. Patient was informed he will need HD and he agreed so a HD catheter placed on 08/20 HD 08/20 and 08/21. He feels much better today Monitor urine output, renal function and electrolytes. (2) Acute hyperkalemia: Code(s): E87.5 - Hyperkalemia Status: Acute Assessment and Plan: Patient presented with abdominal pain and found to have acute kidney injury and hyperkalemia at 6.5. SANG most likely the etiology of his hyperkalemia. Potassium was treated appropriately. Potassium has improved to 4.6 today. Dialysis to control electrolyte abnormalities. (3) Acute pancreatitis: Qualifiers: Acute pancreatitis complication: unspecified Pancreatitis type: unspecified pancreatitis type Qualified Code(s): K85.90 - Acute pancreatitis without necrosis or infection, unspecified Code(s): K85.90 - Acute pancreatitis without necrosis or infection, unspecified Status: Acute Assessment and Plan: Patient presents with abdominal pain, nausea, vomiting and diarrhea. Lipase was elevated on admission and climbed to 12.3K CT shows pancreatitis but does not mention gallbladder disease or cholelithiasis. RUQ US showing mild intrahepatic biliary dilation but no GS. LFTs normal. TG normal. Most likely related to his alcoholism Bloating yesterday so made NPO; KUB showing nml bowel gas pattern Lipase better. Abd exam better. Go to full liquids and advance as toelrated. Add supplements (4) Metabolic acidosis: Code(s): E87.20 - Acidosis, unspecified Status: Acute Assessment and Plan: Patient with severe metabolic gap acidosis. This was noted in the outpatient setting as well. Most likely related to his severe renal disease and lactic acidosis Treated witn IV fluids with bicarb. Control electrolytes with dialysis. (5) Lactic acidosis: Code(s): E87.20 - Acidosis, unspecified Status: Acute Assessment and Plan: Patient with severe lactic acidosis to 5.4 likely related to above. Blood cultures collected given that he has PICC line in place and has been missing doses of his antibiotics BCx NGTD Also related to metformin which is held. (6) Alcoholism: Code(s): F10.20 - Alcohol dependence, uncomplicated Status: Acute Assessment and Plan: Patient with history of longstanding alcoholism. LFTs normal. Liver appears normal by CT. INR 1.2 and protein level normal to suggest good intrinsic function. Started thiamine and folate. CIWA protocol started and score <6 Librium and Ativan available as needed for signs/symptoms of withdrawal. (7) Altered mental status: Code(s): R41.82 - Altered mental status, unspecified Status: Acute Assessment and Plan: Patient was mildly obtunded but awake and mostly oriented. He did have difficulty providing a detailed history CT the brain showing no acute findings. Suspect this is related to uremia and metabolic acidosis. Clinically improved after having HD. Continue to follow (8) Diabetes mellitus: Code(s): E11.9 - Type 2 diabetes mellitus without complications Status: Acute Assessment and Plan: Patient with history of diabetes. A1c 5.3. Continue sliding scale protocol with hypoglycemia protocol. (9) Essential hypertension: Code(s): I10 - Essential (primary) hypertension Status: Acute Assessment and Plan: Patient with essential hypertension. Patient's blood pressure was reviewed on 08/22 Blood pressure poorly controlled Holding losartan and HCTZ. Continue to follow. Hydralazine p.r.n. Add Norvasc (10) Hx of osteomyelitis: Code(s): Z87.39 - Personal history of other diseases of the musculoskeletal system and connective tissue Status: Acute Assessment and Plan: Patient with a history of lumbar spine osteomyelitis. This may have been related to his lumbar surgery in March. He has been on IV antibiotics since June. CT scan showing severe degenerative changes at L4-5 and L5-S1 with deformity of the endplates at L4-5. Consider discitis/osteomyelitis in the appropriate clinical setting. Given the concern that his abx may be contributing to his renal failure, IV antibiotics stopped at this time Vanco level was very high and remained elevated BCx NGTD Consider MRI of lumbar spine if symptomatic but will have patient follo-up with his ID physician in [place]. Follow Plan DVT prophylaxis -SCDs Code status -full. Subjective Date/time seen: 08/23/23 12:13 Interval history: 57yo male with alcoholism, HTN, DM and currently undergoing treatment for osteomyelitis who presents with abdominal pain. Had HD yesterday and tolerated it well. Feels well today. Still with abdominal pain worse with the liquid diet. Passing flatus. No bowel movements. He is up walking to the bathroom. Foster catheter is out. He is voiding very little. Exam Narrative: AF 98.9 173/81 1001 6 96% ra Gen - NARD Neck - right IJ HD catheter in place Chest -few scattered rhonchi otherwise clear. CV - RRR S1/S2. Tele showing no significant dysrhythmias Abd - Soft, minimal epigastric pain, +BS Ext - No pedal edema Neuro - awake and alert Psych - Nml mood Skin - Warm and dry Objective Data Vital Signs Vital Signs: Vital Signs - 24 hr 08/22/23 14:00 08/22/23 16:00 08/22/23 16:00 Temperature Pulse Rate 117 H 113 H Respiratory Rate Blood Pressure Pulse Oximetry Oxygen Delivery Room Air 08/22/23 18:00 08/22/23 16:00 08/22/23 20:05 Temperature 98.9 F 98.1 F Pulse Rate 110 H 110 H 106 H Respiratory Rate 18 25 H Blood Pressure 135/71 154/87 H Pulse Oximetry 95 94 Oxygen Delivery 08/22/23 20:00 08/22/23 20:00 08/22/23 22:00 Temperature Pulse Rate 106 H 105 H 108 H Respiratory Rate 25 H Blood Pressure Pulse Oximetry 94 Oxygen Delivery Room Air 08/23/23 00:22 08/23/23 00:00 08/23/23 00:00 Temperature 98.6 F Pulse Rate 121 H 121 H 109 H Respiratory Rate 20 20 Blood Pressure 146/80 H Pulse Oximetry 93 93 Oxygen Delivery Room Air 08/23/23 01:37 08/23/23 03:43 08/23/23 04:00 Temperature 99.3 F Pulse Rate 106 H 104 H 103 H Respiratory Rate 18 Blood Pressure 168/83 H Pulse Oximetry 94 Oxygen Delivery 08/23/23 04:00 08/23/23 06:00 08/23/23 08:06 Temperature 98.8 F Pulse Rate 104 H 99 102 H Respiratory Rate 18 18 Blood Pressure 143/84 H Pulse Oximetry 94 97 Oxygen Delivery Room Air 08/23/23 08:00 08/23/23 11:53 Temperature 98.9 F Pulse Rate 100 Respiratory Rate 16 Blood Pressure 173/81 H Pulse Oximetry 96 Oxygen Delivery Room Air Intake/Output Intake/Output: Intake & Output 08/20/23 08/21/23 08/22/23 08/23/23 23:59 23:59 23:59 23:59 Intake Total 4091.7 1060.4 750 20 Output Total 125 1195 575 30 Balance 3966.7 -134.6 175 -10 Meds/Results Medications: Active Medications Generic Name Dose Route Start Last Admin Trade Name Freq PRN Reason Stop Dose Admin Acetaminophen 650 mg 08/22/23 17:29 Acetaminophen 650 Mg Suppository RECTAL Q6H PRN Pain Rated 5 or Less Hydrocodone Bitart/Acetaminophen 1 tab 08/22/23 17:28 08/23/23 04:02 Hydrocodone/Acetaminophen (*Crx) 5-325 Mg Tablet PO 1 tab Q6H PRN Administration Pain Rated 6 or Greater Dextrose 12.5 gm 08/20/23 02:25 Dextrose 50% 25 Gm/50 Ml Syringe IV PUSH PRN PRN Hypoglycemia Protocol Folic Acid 1 mg 08/21/23 09:00 08/23/23 09:48 Folic Acid 1 Mg/0.2 Ml Inj IV PUSH 1 mg QAM ANUJA Administration Glucagon 1 mg 08/20/23 02:25 Glucagon For Inj 1 Mg Vial IM PRN PRN Hypoglycemia Protocol Glucose 15 gm 08/20/23 02:25 Glucose Oral Gel 15 Gm Of Glucse In 37.5 Gm Tube PO PRN PRN Hypoglycemia Protocol Hydralazine HCl 10 mg 08/20/23 11:02 08/21/23 20:38 Hydralazine Hcl 20 Mg/Ml Vial IV PUSH 10 mg Q8H PRN Administration Blood Pressure - High Dextrose 1,000 mls @ 100 mls/hr 08/20/23 02:25 Dextrose 5% 1,000 Ml IVPB PRN PRN Hypoglycemia Protocol Albumin Human 50 mls @ 999 mls/hr 08/21/23 11:04 Albutein IVPB 09/20/23 11:03 Q10M PRN HYPOTENSION Insulin Aspart 2 - 5 units 08/20/23 12:00 08/23/23 06:51 Insulin Aspart (*Bkc) 100 Units/Ml SUB-Q Not Given Q6HR ANUJA Protocol Ondansetron HCl 4 mg 08/20/23 02:20 Ondansetron Inj 4 Mg/2 Ml Vial IV PUSH Q4H PRN Nausea Pantoprazole Sodium 40 mg 08/23/23 09:00 08/23/23 09:48 Pantoprazole 40 Mg Tablet PO 40 mg QAM ANUJA Administration Sodium Chloride 20 ml 08/19/23 21:40 Central Line Flush IV PUSH PRN PRN after blood draws Sodium Chloride 10 ml 08/19/23 21:40 Central Line Flush IV PUSH PRN PRN with TPN bag changes Sodium Chloride 10 ml 08/19/23 22:00 08/23/23 03:51 Central Line Flush IV PUSH 10 ml Q8HR ANUJA Administration Sodium Chloride 10 ml 08/21/23 14:00 08/23/23 03:51 Central Line Flush IV PUSH 10 ml Q8HR ANUJA Administration Sodium Chloride 20 ml 08/21/23 10:22 08/23/23 03:51 Central Line Flush IV PUSH 20 ml PRN PRN Administration after blood draws Thiamine HCl 100 mg 08/20/23 09:00 08/23/23 09:48 Thiamine Hcl 200 Mg/2 Ml Vial IV PUSH 100 mg DAILY ANUJA Administration Radiology Results: ITS Impressions Abdomen/Pelvis CT 08/19/23 22:34 IMPRESSION: 1. Acute pancreatitis. 2: Severe degenerative changes at L4-5 and L5-S1 with deformity of the endplates at L4-5. Consider discitis/osteomyelitis in the appropriate clinical setting. If there is concern for discitis, further evaluation with MRI lumbar spine without and with contrast recommended. Head CT 08/20/23 05:43 Impression: No significant abnormality seen. Upper Quadrant Ultrasound 08/20/23 18:10 IMPRESSION: 1: Mild intrahepatic biliary dilatation. Chest X-Ray 08/22/23 06:50 IMPRESSION: 1. Resolution of prior mild pulmonary edema with additional unchanged atelectasis and/or pneumonia at the bilateral lung bases. 2. Small left pleural effusion. Abdomen X-Ray 08/22/23 19:52 IMPRESSION: 1. Normal bowel gas pattern. Labs Labs: Laboratory Results - last 24 hr 08/22/23 08/22/23 08/23/23 12:44 18:05 00:16 WBC RBC Hgb Hct MCV MCH MCHC RDW Plt Count MPV Immature Gran % (Auto) Neut % (Auto) Lymph % (Auto) [place] % (Auto) Eos % (Auto) Baso % (Auto) Lymph # (Auto) [place] # (Auto) Eos # (Auto) Baso # (Auto) Abs Immat Gran (auto) Absolute Neuts (auto) Absolute Nucleated RBC Nucleated RBC % Sodium Potassium Chloride Carbon Dioxide Anion Gap BUN Creatinine Estim Creat Clear Calc Estimated GFR Glucose POC Capillary Glucose 125 H 180 H 117 H Calcium Phosphorus Magnesium Total Bilirubin AST ALT Alkaline Phosphatase Total Protein Albumin Lipase 08/23/23 08/23/23 03:58 06:36 WBC 9.6 RBC 2.75 L Hgb 8.5 L Hct 25.7 L MCV 93.5 MCH 30.9 MCHC 33.1 RDW 17.1 H Plt Count 202 MPV 10.5 H Immature Gran % (Auto) 0.4 Neut % (Auto) 74.1 H Lymph % (Auto) 10.1 L [place] % (Auto) 10.8 H Eos % (Auto) 4.4 Baso % (Auto) 0.2 Lymph # (Auto) 0.97 [place] # (Auto) 1.0 H Eos # (Auto) 0.4 H Baso # (Auto) 0.0 Abs Immat Gran (auto) 0.04 H Absolute Neuts (auto) 7.1 H Absolute Nucleated RBC 0.000 Nucleated RBC % 0.0 Sodium 137 Potassium 4.5 Chloride 102 Carbon Dioxide 27 Anion Gap 8 BUN 33 H D Creatinine 8.90 H Estim Creat Clear Calc 8 Estimated GFR 6 L Glucose 103 POC Capillary Glucose 93 Calcium 9.0 Phosphorus 4.4 Magnesium 1.9 Total Bilirubin 0.5 AST 19 ALT 12 Alkaline Phosphatase 84 Total Protein 5.0 L Albumin 2.9 L Lipase 1513 H
[2023-08-23 12:46] LABS: Glucose Point of Care 115 mg/dl (65-105)
[2023-08-23] MEDS: amLODIPine BESYLATE 2.5 MG TABLET PO (13:02)
--- NOTE | 2023-08-23 15:39 | PC.NURSE ---
This patient, Camacho Sidhu, was transferred to [facility] on 08/23/23 at 1539. Personal belongings sent with patient. Report given to Monie HERNADEZ. Appropriate documentation sent with patient.
[2023-08-23 18:24] LABS: Glucose Point of Care 166 mg/dl (65-105)
[2023-08-24] VITALS (20 sets, daily range): BP systolic 153–172; BP diastolic 85–97; PULSE 87–106; RESP 18–20; TEMP 36.4–37.3; O2SAT 95–99
[2023-08-24 00:28] LABS: Glucose Point of Care 108 mg/dl (65-105)
[2023-08-24 05:13] LABS: Glucose Point of Care 107 mg/dl (65-105)
[2023-08-24] MEDS: HYDROcodone/acetaminophen (*CRX) 5-325 MG TABLET 1 TAB PO ×3 (05:49→18:46)
[2023-08-24] MEDS: CENTRAL LINE FLUSH 10 ML IV PUSH ×4 (05:53→22:00)
[2023-08-24 06:02] LABS: Basophils Percent Auto 0.2 % (0.2-1.2); Eosinophils Absolute Auto 0.5 K/mm3 (0-0.3); Eosinophils Percent Auto 6.2 % (0-4.4); Hematocrit 24.6 % (42.0-52.0); Immature Granulocyte Absolute 0.02 K/mm3 (0.00-0.031); Immature Granulocyte Percent A 0.2 % (0-0.5); Lymphocytes Absolute Auto 1.01 K/mm3 (0.9-3.2); Lymphocytes Percent Auto 12.5 % (18.3-44.2); Mean Corpuscular HGB Conc 32.5 g/dl (32-36); Mean Corpuscular Hemoglobin 30.8 pg (26-34); Mean Corpuscular Volume 94.6 fl (80-100); Mean Platelet Volume 10.2 fl (7.4-10.4); Monocytes Percent Auto 12.3 % (2.6-8.5); Neutrophils Absolute Auto 5.5 K/mm3 (1.3-6.7); Neutrophils Percent Auto 68.6 % (45.5-73.1); Platelet Count Result 225 k/mm3 (150-375); Red Cell Distribution Width 16.8 % (11.5-14.5); White Blood Count 8.1 K/mm3 (4.5-10.0)
[2023-08-24 06:10] LABS: INR 1.1; Prothrombin Time 14.6 Seconds (11.1-14.7)
[2023-08-24 06:12] LABS: Partial Thromboplastin Time 33.9 Seconds (22.3-36.8)
[2023-08-24 06:18] LABS: Alanine Aminotransferase 11 U/L (6-50); Alkaline Phosphatase 86 U/L (38-126); Anion Gap 7 mmol/L (4-12); Aspartate Amino Transferase 17 U/L (17-59); Bilirubin,Total 0.5 mg/dL (0.2-1.3); Blood Urea Nitrogen 39 mg/dL (9-20); Carbon Dioxide 27 mmol/L (22-30); Chloride 99 mmol/L (98-107); Estimated CRCL calculation 6 ml/min; Estimated Glomerular Filt Rate 5; Glucose 96 mg/dL (65-110); Lipase 806 U/L (23-300); Phosphorus 4.5 mg/dL (2.5-4.5); Potassium 4.4 mmol/L (3.4-5.0); Sodium 133 mmol/L (137-145)
[2023-08-24 06:46] LABS: Vancomycin Random 26.2 ug/mL (10-20)
[2023-08-24 07:04] LABS: Protein, Total 4.9 g/dL (6.1-8.1)
--- NOTE | 2023-08-24 08:30 | PC.NURSE ---
Patient off floor to dialysis unit via bed.
--- NOTE | 2023-08-24 10:01 | P.PNNP_ITS ---
Progress Note: A&P Assessment and Plan (1) SANG (acute kidney injury): Code(s): N17.9 - Acute kidney failure, unspecified Status: Acute Assessment and Plan: * assuming normal renal function at baseline * however, creatinine noted to be elevated at 5.7mg/dl several days ago prior to admission * creatinine on admission 16.5mg/dl associated with hyperkalemia and metabolic acidosis * evaluation to date: * CT of abd/pelvis - kidneys unremarkable * CPK okay * urine electrolytes non-prerenal * urine eosinophils negative * proteinuria noted * minimal urine output noted since admission * admission confusion/AMS related to uremia (given improvement following [employer]/dialysis) * suspect multifactorial etiology: * secondary to antibiotics (?) - high vancomycin level noted * ongoing use of metformin + ARB + HCTZ prior to admission * pancreatitis * nausea/vomiting/diarrhea * prerenal factors * element of CKD present? -- known history of HTN and DM * follow-up serological testing * HD today * tentatively plan renal biopsy for tomorrow * follow repeat labs and UOP to assess for renal recovery (2) Acute hyperkalemia: Code(s): E87.5 - Hyperkalemia Status: Acute Assessment and Plan: * resolved * improvement with medical management * dialysis has also helped maintain stability * follow trend of potassium levels (3) Metabolic acidosis: Code(s): E87.20 - Acidosis, unspecified Status: Acute Assessment and Plan: * corrected * due to a few issues: * from SANG/ARF (and inability to clear uremic toxins) * lactic acidosis (complicated by metformin use prior to admission) * possible infection (known hx of osteomyelitis and missed antibiotic doses...) * admission ABG noted * dialysis should help compensate * follow trend of CO2 (4) Acute pancreatitis: Qualifiers: Acute pancreatitis complication: unspecified Pancreatitis type: unspecified pancreatitis type Qualified Code(s): K85.90 - Acute pancreatitis without necrosis or infection, unspecified Code(s): K85.90 - Acute pancreatitis without necrosis or infection, unspecified Status: Acute Assessment and Plan: * noted by history of abdominal pain, nausea, vomiting and diarrhea in ass ociation with elevated lipase * trending lipase levels * confirmed by CT scan -- no mention of gallbladder disease or gall stones * RUQ ultrasound and triglycerides okay * advance diet as tolerated * pain control (5) Altered mental status: Code(s): R41.82 - Altered mental status, unspecified Status: Acute Assessment and Plan: * improved if not ack to baseline * noted on admission * however, awake and alert for the most part but difficult noted providing history that led to admission * CT of brain negative * highly suspect related to uremic encephalopathy and SANG/ARF given improvement with dialytic intervention * follow mental status (6) Essential hypertension: Code(s): I10 - Essential (primary) hypertension Status: Acute Assessment and Plan: * running high at this time * holding ARB and HCTZ given #1 * started on amlodipine - titrate dose * IV hydralazine PRN - start oral hydralazine * follow trend of hemodynamics (7) Alcoholism: Code(s): F10.20 - Alcohol dependence, uncomplicated Status: Acute Assessment and Plan: * known long standing history * on thiamine and folate * [facility] protocol (8) Hx of osteomyelitis: Code(s): Z87.39 - Personal history of other diseases of the musculoskeletal system and connective tissue Status: Acute Assessment and Plan: * reported history from Jun 2023 hospitalization * had been on outpatient IV antibiotics since that time * antibiotics to blame for #1 (?) * repeat culture data noted * follow vancomycin levels (9) Diabetes mellitus: Code(s): E11.9 - Type 2 diabetes mellitus without complications Status: Acute Assessment and Plan: * follow accu-cheks * glycemic control per hospitalists Will continue to follow. Subjective Date/time seen: 08/24/23 10:01 Interval history: Follow-up for acute kidney injury/acute renal failure. Tolerating dialysis treatment at the time of of my visit (seen on HD at 9:50AM); no apparent distress noted; still reports very little urine output as well; still with some abdominal pain when taking oral intake but tolerable; no issues/events overnight or earlier this morning. Exam Narrative: General: WD/WN male in NAD Heart: tachycardic; normal S1 and S2; no rub Lungs: decreased at the bases Abdomen: soft, +TTP, hypoactive bowel sounds Extremities: no cyanosis or clubbing; no edema Skin: no nodules Objective Data Vital Signs Vital Signs: Vital Signs Temp Pulse Resp BP Pulse Ox O2 Del Method 08/24/23 10:00 92 165/91 H 08/24/23 09:15 95 165/96 H 08/24/23 09:00 91 161/91 H 08/24/23 08:00 Room Air 08/24/23 09:45 94 169/90 H 08/24/23 09:30 96 160/94 H 08/24/23 08:47 87 157/92 H 08/24/23 08:37 98.1 F 92 18 155/85 H 98 08/24/23 06:00 98.5 F 97 18 153/85 H 98 08/23/23 21:56 98.5 F 104 H 20 165/89 H 97 08/23/23 16:00 97.8 F 103 H 22 H 154/81 H 96 08/23/23 11:53 98.9 F 100 16 173/81 H 96 Intake/Output Intake/Output: Intake & Output 08/21/23 08/22/23 08/23/23 08/24/23 23:59 23:59 23:59 23:59 Intake Total 1060.4 750 480 200 Output Total 1195 575 30 Balance -134.6 175 450 200 Meds/Results Medications: Active Medications Generic Name Dose Route Start Last Admin Trade Name Freq PRN Reason Stop Dose Admin Acetaminophen 650 mg 08/22/23 17:29 Acetaminophen 650 Mg Suppository RECTAL Q6H PRN Pain Rated 5 or Less Hydrocodone Bitart/Acetaminophen 1 tab 08/22/23 17:28 08/24/23 05:49 Hydrocodone/Acetaminophen (*Crx) 5-325 Mg Tablet PO 1 tab Q6H PRN Administration Pain Rated 6 or Greater Amlodipine Besylate 2.5 mg 08/23/23 12:40 08/23/23 13:02 Amlodipine Besylate 2.5 Mg Tablet PO 2.5 mg QAM ANUJA Administration Dextrose 12.5 gm 08/20/23 02:25 Dextrose 50% 25 Gm/50 Ml Syringe IV PUSH PRN PRN Hypoglycemia Protocol Epoetin Toñito-epbx 10,000 units 08/24/23 20:00 Epoetin Toñito-Epbx 10,000 Units/Ml Vial IV PUSH 08/24/23 20:01 ONCE ONE Folic Acid 1 mg 08/24/23 09:00 Folic Acid 1 Mg Tablet PO DAILY ANUJA Glucagon 1 mg 08/20/23 02:25 Glucagon For Inj 1 Mg Vial IM PRN PRN Hypoglycemia Protocol Glucose 15 gm 08/20/23 02:25 Glucose Oral Gel 15 Gm Of Glucse In 37.5 Gm Tube PO PRN PRN Hypoglycemia Protocol Hydralazine HCl 10 mg 08/20/23 11:02 08/21/23 20:38 Hydralazine Hcl 20 Mg/Ml Vial IV PUSH 10 mg Q8H PRN Administration Blood Pressure - High Dextrose 1,000 mls @ 100 mls/hr 08/20/23 02:25 Dextrose 5% 1,000 Ml IVPB PRN PRN Hypoglycemia Protocol Albumin Human 50 mls @ 999 mls/hr 08/21/23 11:04 Albutein IVPB 09/20/23 11:03 Q10M PRN HYPOTENSION Insulin Aspart 2 - 5 units 08/20/23 12:00 08/24/23 05:53 Insulin Aspart (*Bkc) 100 Units/Ml SUB-Q Not Given Q6HR ANUJA Protocol Ondansetron HCl 4 mg 08/20/23 02:20 Ondansetron Inj 4 Mg/2 Ml Vial IV PUSH Q4H PRN Nausea Pantoprazole Sodium 40 mg 08/23/23 09:00 08/23/23 09:48 Pantoprazole 40 Mg Tablet PO 40 mg QAM [facility] Administration Rosuvastatin Calcium 20 mg 08/24/23 09:00 Rosuvastatin 20 Mg Tablet PO DAILY [facility] Sodium Chloride 20 ml 08/19/23 21:40 Central Line Flush IV PUSH PRN PRN after blood draws Sodium Chloride 10 ml 08/19/23 21:40 Central Line Flush IV PUSH PRN PRN with TPN bag changes Sodium Chloride 10 ml 08/19/23 22:00 08/24/23 05:53 Central Line Flush IV PUSH 10 ml Q8HR ANUJA Administration Sodium Chloride 10 ml 08/21/23 14:00 08/24/23 05:53 Central Line Flush IV PUSH 10 ml Q8HR ANUJA Administration Sodium Chloride 20 ml 08/21/23 10:22 08/23/23 03:51 Central Line Flush IV PUSH 20 ml PRN PRN Administration after blood draws Thiamine HCl 100 mg 08/24/23 09:00 Thiamine Hcl 100 Mg Tablet PO QAM [facility] Radiology Results: ITS Impressions Abdomen/Pelvis CT 08/19/23 22:34 IMPRESSION: 1. Acute pancreatitis. 2: Severe degenerative changes at L4-5 and L5-S1 with deformity of the endplates at L4-5. Consider discitis/osteomyelitis in the appropriate clinical setting. If there is concern for discitis, further evaluation with MRI lumbar spine without and with contrast recommended. Head CT 08/20/23 05:43 Impression: No significant abnormality seen. Upper Quadrant Ultrasound 08/20/23 18:10 IMPRESSION: 1: Mild intrahepatic biliary dilatation. Abdomen X-Ray 08/22/23 19:52 IMPRESSION: 1. Normal bowel gas pattern. Chest X-Ray 08/24/23 07:42 Impression: Bibasilar atelectasis or scarring. Stable right IJ line. Labs Labs: Laboratory Tests 08/24/23 05:52 08/24/23 05:52 Calcium 9.0 Phosphorus 4.5 Magnesium 2.0 Total Bilirubin 0.5 AST 17 ALT 11 Alkaline Phosphatase 86 Total Protein 6.0 L Albumin 3.0 L Lipase 806 H Random Vancomycin 26.2 H AMG Follow-up Billing Additional Procedures Additional Procedure: 27121 Hemodialysis
--- NOTE | 2023-08-24 10:34 | PCNFU ---
Nutrition Follow-Up Complete: Inadequate energy intake related to diet order as evidenced by NPO status Goal:Diet order PO intake 75% of meals and supplements Pt progressing towards goals. Continue with same goals Pt current nutrition is Full liquids. Nutrition recommendation: Add Ensure compact TID with meals for an additional 220kcals, 9g protein per shake Last recorded weight is 72.7 kg. Bowel Motility: +BM 08/22 Labs Reviewed: Hgb:8.0, HCT:24.6, Alb:3.0, NA:133, GFR:5, BUN:39, Cr:11.2 Meds Noted: novolog, zofran Skin: WNL Additional Notes: Pt diet advanced to full liquids, intake varied 25-100%, noted abdominal pain. Recommend to add Ensure TID with meals for supplement. Monitor diet order, intake, wt, labs. Follow up in 3 days.
[2023-08-24] MEDS: EPOETIN ALFA-EPBX 10,000 UNITS/ML VIAL 10000 UNITS IV PUSH (12:02)
[2023-08-24] MEDS: HEPARIN SODIUM 1,000 UNITS/ML VIAL 3000 UNITS IV PUSH (12:21)
[2023-08-24 12:28] LABS: Kappa\\Lambda Light Chains 1.11 (0.26-1.65); Lambda Light Chain 67.6 mg/L (5.7-26.3)
--- NOTE | 2023-08-24 12:30 | PC.NURSE ---
Patient returned to floor via bed from dialysis.
[2023-08-24] MEDS: amLODIPine BESYLATE 5 MG TABLET PO (12:35)
[2023-08-24 12:40] LABS: Glucose Point of Care 91 mg/dl (65-105)
[2023-08-24 13:28] LABS: Anti Glomerular Basement Memb <1.0 AI
--- NOTE | 2023-08-24 13:54 | P.PNIM_ITS ---
Progress Note: A&P Assessment and Plan (1) Acute renal failure: Qualifiers: Acute renal failure type: unspecified Qualified Code(s): N17.9 - Acute kidney failure, unspecified Code(s): N17.9 - Acute kidney failure, unspecified Status: Acute Assessment and Plan: Patient presumably has no underlying kidney problems. Creatinine was 5.7 few days prior to admission on routine labs. Creatinine here was 16.5 with a BUN of 90. He had hyperkalemia and severe metabolic gap acidosis. CXR clear. Patient was started on a bicarb drip and potassium was treated appropriately. Potassium normal and metabolic acidosis better. Renal function was unchanged and urine output essentially anuric. Etiology unclear but Vanco random level elevated at 43. Total CK was normal. Suspect related to dehydration, medications, vanco toxicity and possibly underlying renal disease (DM, HTN?) Nephrology was consulted and appreciate their input. Patient was informed he will need HD and he agreed so a HD catheter placed on 08/20 HD 08/20, 08/21 and today. He feels much better today Most likely will need tunneled HD catheter and a plan for outpatient HD in [place] Monitor urine output, renal function and electrolytes. (2) Acute pancreatitis: Qualifiers: Acute pancreatitis complication: unspecified Pancreatitis type: unspecified pancreatitis type Qualified Code(s): K85.90 - Acute pancreatitis without necrosis or infection, unspecified Code(s): K85.90 - Acute pancreatitis without necrosis or infection, unspecified Status: Acute Assessment and Plan: Patient presents with abdominal pain, nausea, vomiting and diarrhea. Lipase was elevated on admission and climbed to 12.3K CT shows pancreatitis but does not mention gallbladder disease or cholelithiasis. RUQ US showing mild intrahepatic biliary dilation but no GS. LFTs normal. TG normal. Most likely related to his alcoholism Bloating but KUB showing nml bowel gas pattern Lipase better. Abd exam better. Continue low fat diet. Continue supplements (3) Acute hyperkalemia: Code(s): E87.5 - Hyperkalemia Status: Acute Assessment and Plan: Patient presented with abdominal pain and found to have acute kidney injury and hyperkalemia at 6.5. SANG most likely the etiology of his hyperkalemia. Potassium was treated appropriately. Potassium has improved to 4.6 today. Dialysis to control electrolyte abnormalities. (4) Metabolic acidosis: Code(s): E87.20 - Acidosis, unspecified Status: Acute Assessment and Plan: Patient with severe metabolic gap acidosis. This was noted in the outpatient setting as well. Most likely related to his severe renal disease and lactic acidosis Treated witn IV fluids with bicarb. Control electrolytes with dialysis. (5) Lactic acidosis: Code(s): E87.20 - Acidosis, unspecified Status: Acute Assessment and Plan: Patient with severe lactic acidosis to 5.4 likely related to above. Blood cultures collected given that he has PICC line in place and has been missing doses of his antibiotics BCx NGTD Also related to metformin which is held. (6) Alcoholism: Code(s): F10.20 - Alcohol dependence, uncomplicated Status: Acute Assessment and Plan: Patient with history of longstanding alcoholism. LFTs normal. Liver appears normal by CT. INR 1.2 and protein level normal to suggest good intrinsic function. Started thiamine and folate. CIWA protocol has been stopped Librium and Ativan prn were available but now stopped (7) Altered mental status: Code(s): R41.82 - Altered mental status, unspecified Status: Acute Assessment and Plan: Patient was mildly obtunded but awake and mostly oriented. He did have difficulty providing a detailed history CT the brain showing no acute findings. Suspect this is related to uremia and metabolic acidosis. Clinically improved after having HD. Continue to follow (8) Diabetes mellitus: Code(s): E11.9 - Type 2 diabetes mellitus without complications Status: Acute Assessment and Plan: Patient with history of diabetes. A1c 5.3. Continue sliding scale protocol with hypoglycemia protocol. (9) Essential hypertension: Code(s): I10 - Essential (primary) hypertension Status: Acute Assessment and Plan: Patient with essential hypertension. Patient's blood pressure was reviewed on 08/23 Blood pressure still poorly controlled Holding losartan and HCTZ. Continue to follow. Hydralazine p.r.n. [facility] (10) Hx of osteomyelitis: Code(s): Z87.39 - Personal history of other diseases of the musculoskeletal system and connective tissue Status: Acute Assessment and Plan: Patient with a history of lumbar spine osteomyelitis. This may have been related to his lumbar surgery in March. He has been on IV antibiotics since June. CT scan showing severe degenerative changes at L4-5 and L5-S1 with deformity of the endplates at L4-5. Consider discitis/osteomyelitis in the appropriate clinical setting. Given the concern that his abx may be contributing to his renal failure, IV antibiotics stopped at this time Vanco level was very high and remained elevated BCx NGTD Consider MRI of lumbar spine if symptomatic but will have patient follo-up with his ID physician in [place]. Follow Plan DVT prophylaxis -SCDs Code status -full. (when patient was more awake and alert, he wished to remain full code) Subjective Date/time seen: 08/24/23 13:54 Interval history: 57yo male with alcoholism, HTN, DM and currently undergoing treatment for osteomyelitis who presents with abdominal pain. Having HD today. No UOP. Walking in the room. Tolerated clear liquids last night (also a tune melt brought in by family) but still with abdominal pain after eating. No CP or SOB. Exam Narrative: AF 99.1 172/89 102 18 95% ra Gen - NARD currently undergoing HD Neck - right IJ HD catheter in place Chest -R>L inspiratory crackles, nml RR CV - RRR S1/S2 Abd - Soft, NT/ND, +BS Ext - No pedal edema Psych - Nml mood Skin - Warm and dry Objective Data Vital Signs Vital Signs: Vital Signs - 24 hr 08/23/23 16:00 08/23/23 21:56 08/24/23 06:00 Temperature 97.8 F 98.5 F 98.5 F Pulse Rate 103 H 104 H 97 Respiratory Rate 22 H 20 18 Blood Pressure 154/81 H 165/89 H 153/85 H Pulse Oximetry 96 97 98 Oxygen Delivery 08/24/23 08:37 08/24/23 08:47 08/24/23 09:30 Temperature 98.1 F Pulse Rate 92 87 96 Respiratory Rate 18 Blood Pressure 155/85 H 157/92 H 160/94 H Pulse Oximetry 98 Oxygen Delivery 08/24/23 09:45 08/24/23 10:15 08/24/23 10:30 Temperature Pulse Rate 94 98 99 Respiratory Rate Blood Pressure 169/90 H 168/95 H 170/91 H Pulse Oximetry Oxygen Delivery 08/24/23 11:00 08/24/23 11:15 08/24/23 11:45 Temperature Pulse Rate 102 H 98 106 H Respiratory Rate Blood Pressure 165/97 H 166/92 H 170/96 H Pulse Oximetry Oxygen Delivery 08/24/23 12:09 08/24/23 08:00 08/24/23 09:00 Temperature 99.1 F Pulse Rate 102 H 91 Respiratory Rate 18 Blood Pressure 172/89 H 161/91 H Pulse Oximetry 95 Oxygen Delivery Room Air 08/24/23 09:15 08/24/23 10:00 08/24/23 10:45 Temperature Pulse Rate 95 92 101 H Respiratory Rate Blood Pressure 165/96 H 165/91 H 162/90 H Pulse Oximetry Oxygen Delivery 08/24/23 11:30 08/24/23 12:04 Temperature Pulse Rate 100 101 H Respiratory Rate Blood Pressure 165/87 H 172/96 H Pulse Oximetry Oxygen Delivery Intake/Output Intake/Output: Intake & Output 08/21/23 08/22/23 08/23/23 08/24/23 23:59 23:59 23:59 23:59 Intake Total 1060.4 750 480 320 Output Total 1195 575 30 0 Balance -134.6 175 450 320 Meds/Results Medications: Active Medications Generic Name Dose Route Start Last Admin Trade Name Freq PRN Reason Stop Dose Admin Acetaminophen 650 mg 08/22/23 17:29 Acetaminophen 650 Mg Suppository RECTAL Q6H PRN Pain Rated 5 or Less Hydrocodone Bitart/Acetaminophen 1 tab 08/22/23 17:28 08/24/23 12:35 Hydrocodone/Acetaminophen (*Crx) 5-325 Mg Tablet PO 1 tab Q6H PRN Administration Pain Rated 6 or Greater Amlodipine Besylate 5 mg 08/24/23 10:20 08/24/23 12:35 Amlodipine Besylate 5 Mg Tablet PO 5 mg QAM ANUJA Administration Dextrose 12.5 gm 08/20/23 02:25 Dextrose 50% 25 Gm/50 Ml Syringe IV PUSH PRN PRN Hypoglycemia Protocol Epoetin Toñito-epbx 10,000 units 08/24/23 20:00 08/24/23 12:02 Epoetin Toñito-Epbx 10,000 Units/Ml Vial IV PUSH 08/24/23 20:01 10,000 units ONCE ONE Administration Folic Acid 1 mg 08/24/23 09:00 08/24/23 08:16 Folic Acid 1 Mg Tablet PO Not Given DAILY ANUJA Glucagon 1 mg 08/20/23 02:25 Glucagon For Inj 1 Mg Vial IM PRN PRN Hypoglycemia Protocol Glucose 15 gm 08/20/23 02:25 Glucose Oral Gel 15 Gm Of Glucse In 37.5 Gm Tube PO PRN PRN Hypoglycemia Protocol Hydralazine HCl 10 mg 08/20/23 11:02 08/21/23 20:38 Hydralazine Hcl 20 Mg/Ml Vial IV PUSH 10 mg Q8H PRN Administration Blood Pressure - High Dextrose 1,000 mls @ 100 mls/hr 08/20/23 02:25 Dextrose 5% 1,000 Ml IVPB PRN PRN Hypoglycemia Protocol Albumin Human 50 mls @ 999 mls/hr 08/21/23 11:04 Albutein IVPB 09/20/23 11:03 Q10M PRN HYPOTENSION Insulin Aspart 2 - 5 units 08/20/23 12:00 08/24/23 12:35 Insulin Aspart (*Bkc) 100 Units/Ml SUB-Q Not Given Q6HR ANUJA Protocol Ondansetron HCl 4 mg 08/20/23 02:20 Ondansetron Inj 4 Mg/2 Ml Vial IV PUSH Q4H PRN Nausea Pantoprazole Sodium 40 mg 08/23/23 09:00 08/24/23 08:17 Pantoprazole 40 Mg Tablet PO Not Given QAM [facility] Rosuvastatin Calcium 20 mg 08/24/23 09:00 08/24/23 08:17 Rosuvastatin 20 Mg Tablet PO Not Given DAILY [facility] Sodium Chloride 20 ml 08/19/23 21:40 Central Line Flush IV PUSH PRN PRN after blood draws Sodium Chloride 10 ml 08/19/23 21:40 Central Line Flush IV PUSH PRN PRN with TPN bag changes Sodium Chloride 10 ml 08/19/23 22:00 08/24/23 05:53 Central Line Flush IV PUSH 10 ml Q8HR ANUJA Administration Sodium Chloride 10 ml 08/21/23 14:00 08/24/23 05:53 Central Line Flush IV PUSH 10 ml Q8HR ANUJA Administration Sodium Chloride 20 ml 08/21/23 10:22 08/23/23 03:51 Central Line Flush IV PUSH 20 ml PRN PRN Administration after blood draws Thiamine HCl 100 mg 08/24/23 09:00 08/24/23 08:17 Thiamine Hcl 100 Mg Tablet PO Not Given QAM [facility] Radiology Results: ITS Impressions Abdomen/Pelvis CT 08/19/23 22:34 IMPRESSION: 1. Acute pancreatitis. 2: Severe degenerative changes at L4-5 and L5-S1 with deformity of the endplates at L4-5. Consider discitis/osteomyelitis in the appropriate clinical setting. If there is concern for discitis, further evaluation with MRI lumbar spine without and with contrast recommended. Head CT 08/20/23 05:43 Impression: No significant abnormality seen. Upper Quadrant Ultrasound 08/20/23 18:10 IMPRESSION: 1: Mild intrahepatic biliary dilatation. Abdomen X-Ray 08/22/23 19:52 IMPRESSION: 1. Normal bowel gas pattern. Chest X-Ray 08/24/23 07:42 Impression: Bibasilar atelectasis or scarring. Stable right IJ line. Labs Labs: Laboratory Results - last 24 hr 08/22/23 08/23/23 08/24/23 04:40 18:19 00:25 WBC RBC Hgb Hct MCV MCH MCHC RDW Plt Count MPV Immature Gran % (Auto) Neut % (Auto) Lymph % (Auto) [place] % (Auto) Eos % (Auto) Baso % (Auto) Lymph # (Auto) [place] # (Auto) Eos # (Auto) Baso # (Auto) Abs Immat Gran (auto) Absolute Neuts (auto) Absolute Nucleated RBC Nucleated RBC % PT INR APTT Sodium Potassium Chloride Carbon Dioxide Anion Gap BUN Creatinine Estim Creat Clear Calc Estimated GFR Glucose POC Capillary Glucose 166 H 108 H Calcium Phosphorus Magnesium Total Bilirubin AST ALT Alkaline Phosphatase Total Protein 4.9 L Albumin Lipase Random Vancomycin Glomerular Base Memb Ab <1.0 [place]/Lambda Ratio 1.11 Free [place] Light Chains 74.8 H Free [place]ambda Light Chain 67.6 H 08/24/23 08/24/23 08/24/23 05:07 05:52 12:32 WBC 8.1 RBC 2.60 L Hgb 8.0 L Hct 24.6 L MCV 94.6 MCH 30.8 MCHC 32.5 RDW 16.8 H Plt Count 225 MPV 10.2 Immature Gran % (Auto) 0.2 Neut % (Auto) 68.6 Lymph % (Auto) 12.5 L [place] % (Auto) 12.3 H Eos % (Auto) 6.2 H Baso % (Auto) 0.2 Lymph # (Auto) 1.01 [place] # (Auto) 1.0 H Eos # (Auto) 0.5 H Baso # (Auto) 0.0 Abs Immat Gran (auto) 0.02 Absolute Neuts (auto) 5.5 Absolute Nucleated RBC 0.000 Nucleated RBC % 0.0 PT 14.6 INR 1.1 APTT 33.9 Sodium 133 L Potassium 4.4 Chloride 99 Carbon Dioxide 27 Anion Gap 7 BUN 39 H Creatinine 11.20 H Estim Creat Clear Calc 6 Estimated GFR 5 L Glucose 96 POC Capillary Glucose 107 H 91 Calcium 9.0 Phosphorus 4.5 Magnesium 2.0 Total Bilirubin 0.5 AST 17 ALT 11 Alkaline Phosphatase 86 Total Protein 6.0 L Albumin 3.0 L Lipase 806 H Random Vancomycin 26.2 H Glomerular Base Memb Ab [place]/Lambda Ratio Free [place] Light Chains Free Lambda Light Chain
[2023-08-24] MEDS: ACETAMINOPHEN 325 MG TABLET 650 MG PO (17:10)
[2023-08-24 18:26] LABS: Glucose Point of Care 108 mg/dl (65-105)
[2023-08-24 23:45] LABS: Glucose Point of Care 130 mg/dl (65-105)
[2023-08-25] MEDS: CENTRAL LINE FLUSH 10 ML IV PUSH ×5 (00:49→22:00)
[2023-08-25] MEDS: HYDROcodone/acetaminophen (*CRX) 5-325 MG TABLET 1 TAB PO ×4 (00:59→20:21)
[2023-08-25 04:00] LABS: Glucose Point of Care 107 mg/dl (65-105)
[2023-08-25 05:31] VITALS: BP 135/86; PULSE 87; RESP 16; TEMP 36.3; O2SAT 98
[2023-08-25 06:41] LABS: Basophils Percent Auto 0.3 % (0.2-1.2); Eosinophils Absolute Auto 0.3 K/mm3 (0-0.3); Eosinophils Percent Auto 5.5 % (0-4.4); Hematocrit 23.5 % (42.0-52.0); Hemoglobin 7.6 g/dL (14.0-18.0); Immature Granulocyte Absolute 0.01 K/mm3 (0.00-0.031); Immature Granulocyte Percent A 0.2 % (0-0.5); Lymphocytes Absolute Auto 0.92 K/mm3 (0.9-3.2); Lymphocytes Percent Auto 14.8 % (18.3-44.2); Mean Corpuscular HGB Conc 32.3 g/dl (32-36); Mean Corpuscular Hemoglobin 30.8 pg (26-34); Mean Corpuscular Volume 95.1 fl (80-100); Mean Platelet Volume 10.1 fl (7.4-10.4); Monocytes Percent Auto 15.6 % (2.6-8.5); Neutrophils Percent Auto 63.6 % (45.5-73.1); Platelet Count Result 231 k/mm3 (150-375); Red Blood Count 2.47 M/mm3 (4.6-6.20); Red Cell Distribution Width 17.1 % (11.5-14.5); White Blood Count 6.2 K/mm3 (4.5-10.0)
[2023-08-25 07:15] LABS: Alanine Aminotransferase 12 U/L (6-50); Albumin Level 2.9 g/dL (3.5-5.1); Alkaline Phosphatase 97 U/L (38-126); Anion Gap 3 mmol/L (4-12); Aspartate Amino Transferase 25 U/L (17-59); Bilirubin,Total 0.4 mg/dL (0.2-1.3); Blood Urea Nitrogen 22 mg/dL (9-20); Calcium 8.7 mg/dL (8.4-10.2); Carbon Dioxide 31 mmol/L (22-30); Chloride 100 mmol/L (98-107); Estimated CRCL calculation 9 ml/min; Estimated Glomerular Filt Rate 7; Glucose 95 mg/dL (65-110); Lipase 457 U/L (23-300); Magnesium 2.1 mg/dL (1.6-2.3); Phosphorus 3.4 mg/dL (2.5-4.5); Potassium 4.2 mmol/L (3.4-5.0); Sodium 134 mmol/L (137-145)
[2023-08-25] MEDS: hydrALAZINE HCL 25 MG TABLET PO ×2 (07:47→10:41)
[2023-08-25 08:31] VITALS: BP 167/95; PULSE 86; RESP 17; TEMP 35.9; O2SAT 97
[2023-08-25 09:29] LABS: Albumin 2.8 g/dL (3.8-4.8); Alpha 1 Globulin 0.2 g/dL (0.2-0.3); Alpha 2 Globulin 0.7 g/dL (0.5-0.9); Beta 1 Globulin 0.3 g/dL (0.4-0.6); Gamma Globulin 0.6 g/dL (0.8-1.7)
[2023-08-25] MEDS: FOLIC ACID 1 MG TABLET PO (09:36)
[2023-08-25] MEDS: ROSUVASTATIN 20 MG TABLET PO (09:36)
[2023-08-25] MEDS: THIAMINE HCL 100 MG TABLET PO (09:37)
[2023-08-25] MEDS: PANTOPRAZOLE 40 MG TABLET PO (09:37)
[2023-08-25] MEDS: amLODIPine BESYLATE 5 MG TABLET 10 MG PO (09:37)
--- NOTE | 2023-08-25 09:45 | P.PNNP_ITS ---
Progress Note: A&P Assessment and Plan (1) SANG (acute kidney injury): Code(s): N17.9 - Acute kidney failure, unspecified Status: Acute Assessment and Plan: * assuming normal renal function at baseline * however, creatinine noted to be elevated at 5.7mg/dl several days ago prior to admission * creatinine on admission 16.5mg/dl associated with hyperkalemia and metabolic acidosis * evaluation to date: * CT of abd/pelvis - kidneys unremarkable * CPK okay * urine electrolytes non-prerenal * urine eosinophils negative * proteinuria noted * serologies noted - negative AMARIS, ANCA, antiGBM, kappa/lambda ratio, and SPEP; C3 low * minimal urine output noted since admission * admission confusion/AMS related to uremia (given improvement following [employer]/dialysis) * suspect multifactorial etiology: * secondary to antibiotics (?) - high vancomycin level noted * ongoing use of metformin + ARB + HCTZ prior to admission * pancreatitis * nausea/vomiting/diarrhea * prerenal factors * element of CKD present? -- known history of HTN and DM * HD possibly tomorrow * tentatively plan renal biopsy for today * follow repeat labs and UOP to assess for renal recovery (2) Acute hyperkalemia: Code(s): E87.5 - Hyperkalemia Status: Acute Assessment and Plan: * resolved * improvement with medical management * dialysis has also helped maintain stability * follow trend of potassium levels (3) Metabolic acidosis: Code(s): E87.20 - Acidosis, unspecified Status: Acute Assessment and Plan: * corrected * due to a few issues: * from SANG/ARF (and inability to clear uremic toxins) * lactic acidosis (complicated by metformin use prior to admission) * possible infection (known hx of osteomyelitis and missed antibiotic doses...) * admission ABG noted * dialysis should help compensate * follow trend of CO2 (4) Acute pancreatitis: Qualifiers: Acute pancreatitis complication: unspecified Pancreatitis type: unspecified pancreatitis type Qualified Code(s): K85.90 - Acute pancreatitis without necrosis or infection, unspecified Code(s): K85.90 - Acute pancreatitis without necrosis or infection, unspecified Status: Acute Assessment and Plan: * noted by history of abdominal pain, nausea, vomiting and diarrhea in association with elevated lipase * trending lipase levels * confirmed by CT scan -- no mention of gallbladder disease or gall stones * RUQ ultrasound and triglycerides okay * advance diet as tolerated * pain control (5) Altered mental status: Code(s): R41.82 - Altered mental status, unspecified Status: Acute Assessment and Plan: * improved if not back to baseline * noted on admission * however, awake and alert for the most part but difficult noted providing history that led to admission * CT of brain negative * highly suspect related to uremic encephalopathy and SANG/ARF given improvement with dialytic intervention * follow mental status (6) Essential hypertension: Code(s): I10 - Essential (primary) hypertension Status: Acute Assessment and Plan: * running high at this time * holding ARB and HCTZ given #1 * started on amlodipine - titrate dose * IV hydralazine PRN - started oral hydralazine * follow trend of hemodynamics (7) Alcoholism: Code(s): F10.20 - Alcohol dependence, uncomplicated Status: Acute Assessment and Plan: * known long standing history * on thiamine and folate * [facility] protocol (8) Hx of osteomyelitis: Code(s): Z87.39 - Personal history of other diseases of the musculoskeletal system and connective tissue Status: Acute Assessment and Plan: * reported history from Jun 2023 hospitalization * had been on outpatient IV antibiotics since that time * antibiotics to blame for #1 (?) * repeat culture data noted * follow vancomycin levels (9) Diabetes mellitus: Code(s): E11.9 - Type 2 diabetes mellitus without complications Status: Acute Assessment and Plan: * follow accu-cheks * glycemic control per hospitalists Will continue to follow. Subjective Date/time seen: 08/25/23 09:45 Interval history: Follow-up for acute kidney injury/acute renal failure. Tolerated dialysis treatment yesterday without any issue or problems; still hav ing on/off abdominal pain but medication are helpful with regard to symptom control; plan for renal biopsy later today; still no making much urine output but mentation as well as electrolyte control and acidosis have improved with dialytic intervention. Exam Narrative: General: WD/WN male in NAD Heart: normal S1 and S2; no rub Lungs: clear anteriorly Abdomen: soft, mild TTP, positive bowel sounds Extremities: no cyanosis or clubbing; no edema Skin: warm and dry Objective Data Vital Signs Vital Signs: Vital Signs Temp Pulse Resp BP Pulse Ox 08/25/23 08:31 96.7 F L 86 17 167/95 H 97 04/16/24 05:31 97.3 F L 87 16 135/86 98 08/24/23 21:15 97.6 F 104 H 18 99 08/24/23 14:00 97.8 F 103 H 20 169/89 H 96 Intake/Output Intake/Output: Intake & Output 08/22/23 08/23/23 08/24/23 08/25/23 23:59 23:59 23:59 23:59 Intake Total 750 480 990 0 Output Total 575 30 50 Balance 175 450 940 0 Meds/Results Medications: Active Medications Generic Name Dose Route Start Last Admin Trade Name Freq PRN Reason Stop Dose Admin Acetaminophen 650 mg 08/24/23 14:06 08/25/23 10:41 Acetaminophen 325 Mg Tablet PO 650 mg Q6H PRN Administration Pain Rated 5 or Less Hydrocodone Bitart/Acetaminophen 1 tab 08/22/23 17:28 08/25/23 06:25 Hydrocodone/Acetaminophen (*Crx) 5-325 Mg Tablet PO 1 tab Q6H PRN Administration Pain Rated 6 or Greater Amlodipine Besylate 10 mg 08/25/23 09:00 08/25/23 09:37 Amlodipine Besylate 5 Mg Tablet PO 10 mg QAM ANUJA Administration Dextrose 12.5 gm 08/20/23 02:25 Dextrose 50% 25 Gm/50 Ml Syringe IV PUSH PRN PRN Hypoglycemia Protocol Folic Acid 1 mg 08/24/23 09:00 08/25/23 09:36 Folic Acid 1 Mg Tablet PO 1 mg DAILY ANUJA Administration Glucagon 1 mg 08/20/23 02:25 Glucagon For Inj 1 Mg Vial IM PRN PRN Hypoglycemia Protocol Glucose 15 gm 08/20/23 02:25 Glucose Oral Gel 15 Gm Of Glucse In 37.5 Gm Tube PO PRN PRN Hypoglycemia Protocol Hydralazine HCl 10 mg 08/20/23 11:02 08/21/23 20:38 Hydralazine Hcl 20 Mg/Ml Vial IV PUSH 10 mg Q8H PRN Administration Blood Pressure - High Hydralazine HCl 50 mg 08/25/23 12:00 Hydralazine Hcl 25 Mg Tablet PO TIDWM ANUJA Dextrose 1,000 mls @ 100 mls/hr 08/20/23 02:25 Dextrose 5% 1,000 Ml IVPB PRN PRN Hypoglycemia Protocol Albumin Human 50 mls @ 999 mls/hr 08/21/23 11:04 Albutein IVPB 09/20/23 11:03 Q10M PRN HYPOTENSION Insulin Aspart 2 - 5 units 08/20/23 12:00 08/25/23 11:43 Insulin Aspart (*Bkc) 100 Units/Ml SUB-Q Not Given Q6HR ANUJA Protocol Ondansetron HCl 4 mg 08/20/23 02:20 Ondansetron Inj 4 Mg/2 Ml Vial IV PUSH Q4H PRN Nausea Pantoprazole Sodium 40 mg 08/23/23 09:00 08/25/23 09:37 Pantoprazole 40 Mg Tablet PO 40 mg QAM ANUJA Administration Rosuvastatin Calcium 20 mg 08/24/23 09:00 08/25/23 09:36 Rosuvastatin 20 Mg Tablet PO 20 mg DAILY ANUJA Administration Sodium Chloride 20 ml 08/19/23 21:40 Central Line Flush IV PUSH PRN PRN after blood draws Sodium Chloride 10 ml 08/19/23 21:40 Central Line Flush IV PUSH PRN PRN with TPN bag changes Sodium Chloride 10 ml 08/19/23 22:00 08/25/23 07:26 Central Line Flush IV PUSH 10 ml Q8HR ANUJA Administration Sodium Chloride 10 ml 08/21/23 14:00 08/25/23 07:26 Central Line Flush IV PUSH 10 ml Q8HR ANUJA Administration Sodium Chloride 20 ml 08/21/23 10:22 08/23/23 03:51 Central Line Flush IV PUSH 20 ml PRN PRN Administration after blood draws Thiamine HCl 100 mg 08/24/23 09:00 08/25/23 09:37 Thiamine Hcl 100 Mg Tablet PO 100 mg QAM ANUJA Administration Radiology Results: ITS Impressions Abdomen/Pelvis CT 08/19/23 22:34 IMPRESSION: 1. Acute pancreatitis. 2: Severe degenerative changes at L4-5 and L5-S1 with deformity of the endplates at L4-5. Consider discitis/osteomyelitis in the appropriate clinical setting. If there is concern for discitis, further evaluation with MRI lumbar spine without and with contrast recommended. Head CT 08/20/23 05:43 Impression: No significant abnormality seen. Upper Quadrant Ultrasound 08/20/23 18:10 IMPRESSION: 1: Mild intrahepatic biliary dilatation. Abdomen X-Ray 08/22/23 19:52 IMPRESSION: 1. Normal bowel gas pattern. Chest X-Ray 08/24/23 07:42 Impression: Bibasilar atelectasis or scarring. Stable right IJ line. Labs Labs: Laboratory Tests 08/25/23 06:36 08/25/23 06:36 Calcium 8.7 Phosphorus 3.4 Magnesium 2.1 Total Bilirubin 0.4 AST 25 ALT 12 Alkaline Phosphatase 97 Total Protein 6.0 L Albumin 2.9 L AMG Follow[facility]up Billing [facility] Follow-up Hospital Follow-up: 53277 Subs Hosp Care Mod
[2023-08-25] MEDS: ACETAMINOPHEN 325 MG TABLET 650 MG PO ×2 (10:41→17:46)
[2023-08-25 11:42] LABS: Glucose Point of Care 103 mg/dl (65-105)
[2023-08-25 12:34] LABS: ANCA Screen NEGATIVE (NEGATIVE)
--- NOTE | 2023-08-25 13:13 | PC.NURSE ---
On 08/25/23, the student, Kira Peña, provided care and completed [facility] documentation on this patient. I have reviewed the student's documentation and agree with the findings.
[2023-08-25 14:00] VITALS: BP 129/69; PULSE 101; RESP 22; TEMP 36.6; O2SAT 95
--- NOTE | 2023-08-25 15:54 | PM.IMPN ---
Progress Note: A&P Assessment and Plan (1) Acute renal failure: Qualifiers: Acute renal failure type: unspecified Qualified Code(s): N17.9 - Acute kidney failure, unspecified Code(s): N17.9 - Acute kidney failure, unspecified Status: Acute Assessment and Plan: Patient presumably has no underlying kidney problems. Creatinine was 5.7 few days prior to admission on routine labs. Creatinine here was 16.5 with a BUN of 90. He had hyperkalemia and severe metabolic gap acidosis. CXR clear. Patient was started on a bicarb drip and potassium was treated appropriately. Potassium normal and metabolic acidosis better. Renal function was unchanged and urine output essentially anuric. Etiology unclear but Vanco random level elevated at 43. Total CK was normal. Suspect related to dehydration, medications, vanco toxicity and possibly underlying renal disease (DM, HTN?) Nephrology was consulted and appreciate their input. Patient was informed he will need HD and he agreed so a HD catheter placed on 08/20 HD 08/20, 08/21 and 08/23. He feels much better overall Most likely will need tunneled HD catheter and a plan for outpatient HD in [place] Monitor urine output, renal function and electrolytes. (2) Acute pancreatitis: Qualifiers: Acute pancreatitis complication: unspecified Pancreatitis type: unspecified pancreatitis type Qualified Code(s): K85.90 - Acute pancreatitis without necrosis or infection, unspecified Code(s): K85.90 - Acute pancreatitis without necrosis or infection, unspecified Status: Acute Assessment and Plan: Patient presents with abdominal pain, nausea, vomiting and diarrhea. Lipase was elevated on admission and climbed to 12.3K CT shows pancreatitis but does not mention gallbladder disease or cholelithiasis. RUQ US showing mild intrahepatic biliary dilation but no GS. LFTs normal. TG normal. Most likely related to his alcoholism Bloating but KUB showing nml bowel gas pattern Lipase better. Abd exam much better but has these episodes of abd pain with dry heaves. Requiring [place] 3x/day regularly. Follow for now Continue low fat diet. Continue supplements (3) Acute hyperkalemia: Code(s): E87.5 - Hyperkalemia Status: Acute Assessment and Plan: Patient presented with abdominal pain and found to have acute kidney injury and hyperkalemia at 6.5. SANG most likely the etiology of his hyperkalemia. Potassium was treated appropriately. Potassium normal now Dialysis to control electrolyte abnormalities. (4) Metabolic acidosis: Code(s): E87.20 - Acidosis, unspecified Status: Acute Assessment and Plan: Patient with severe metabolic gap acidosis. This was noted in the outpatient setting as well. Most likely related to his severe renal disease and lactic acidosis Treated witn IV fluids with bicarb. Control electrolytes with dialysis. (5) Lactic acidosis: Code(s): E87.20 - Acidosis, unspecified Status: Acute Assessment and Plan: Patient with severe lactic acidosis to 5.4 likely related to above. Blood cultures collected given that he has PICC line in place and has been missing doses of his antibiotics BCx NGTD Also related to metformin which is held. (6) Alcoholism: Code(s): F10.20 - Alcohol dependence, uncomplicated Status: Acute Assessment and Plan: Patient with history of longstanding alcoholism. LFTs normal. Liver appears normal by CT. INR 1.2 and protein level normal to suggest good intrinsic function. Started thiamine and folate. CIWA protocol has been stopped Librium and Ativan prn were available but now stopped (7) Altered mental status: Code(s): R41.82 - Altered mental status, unspecified Status: Acute Assessment and Plan: Patient was mildly obtunded but awake and mostly oriented on admission and had difficulty providing a detailed history CT the brain showing no acute findings. Suspect this is related to uremia and metabolic acidosis. Clinically improved after having HD. Continue to follow (8) Diabetes mellitus: Code(s): E11.9 - Type 2 diabetes mellitus without complications Status: Acute Assessment and Plan: Patient with history of diabetes. A1c 5.3. Continue sliding scale protocol with hypoglycemia protocol. (9) Essential hypertension: Code(s): I10 - Essential (primary) hypertension Status: Acute Assessment and Plan: Patient with essential hypertension. Patient's blood pressure was reviewed on 08/24 Blood pressure still poorly controlled Holding losartan and HCTZ. Norvasc advanced again and hydralazine added Continue to follow. Hydralazine available p.r.n. (10) Hx of osteomyelitis: Code(s): Z87.39 - Personal history of other diseases of the musculoskeletal system and connective tissue Status: Acute Assessment and Plan: Patient with a history of lumbar spine osteomyelitis. This may have been related to his lumbar surgery in March. He has been on IV antibiotics since June. CT scan showing severe degenerative changes at L4-5 and L5-S1 with deformity of the endplates at L4-5. Consider discitis/osteomyelitis in the appropriate clinical setting. Given the concern that his abx may be contributing to his renal failure, IV antibiotics stopped at this time Vanco level was very high and remained elevated BCx NGTD PICC line removed. Consider MRI of lumbar spine if symptomatic but will have patient follo-up with his ID physician in [place]. Follow Plan DVT prophylaxis -SCDs Code status -full Subjective Date/time seen: 08/25/23 15:54 Interval history: 57yo male with alcoholism, HTN, DM and currently undergoing treatment for osteomyelitis who presents with abdominal pain. No biopsy today because BP too high. +BMs. Beginning to make urine. Having recurrent intermittent abd pain with dry heaves but able to tolerate food later in the day. Chronic leg and abck pain better. Exam Narrative: AF 97.8 129/69 101 22 95% ra Gen - NARD Neck - right IJ HD catheter in place Chest - CTA bialterally, nml RR CV - RRR S1/S2 Abd - Soft, NT/ND, +BS Ext - No pedal edema Psych - Nml mood Skin - Warm and dry Objective Data Vital Signs Vital Signs: Vital Signs - 24 hr 08/24/23 21:15 08/25/23 05:31 08/25/23 08:31 Temperature 97.6 F 97.3 F L 96.7 F L Pulse Rate 104 H 87 86 Respiratory Rate 18 16 17 Blood Pressure 135/86 167/95 H Pulse Oximetry 99 98 97 08/25/23 14:00 Temperature 97.8 F Pulse Rate 101 H Respiratory Rate 22 H Blood Pressure 129/69 Pulse Oximetry 95 Intake/Output Intake/Output: Intake & Output 08/22/23 08/23/23 08/24/23 08/25/23 23:59 23:59 23:59 23:59 Intake Total 750 480 990 120 Output Total 575 30 50 Balance 175 450 940 120 Meds/Results Medications: Active Medications Generic Name Dose Route Start Last Admin Trade Name Freq PRN Reason Stop Dose Admin Acetaminophen 650 mg 08/24/23 14:06 08/25/23 10:41 Acetaminophen 325 Mg Tablet PO 650 mg Q6H PRN Administration Pain Rated 5 or Less Hydrocodone Bitart/Acetaminophen 1 tab 08/22/23 17:28 08/25/23 12:51 Hydrocodone/Acetaminophen (*Crx) 5-325 Mg Tablet PO 1 tab Q6H PRN Administration Pain Rated 6 or Greater Amlodipine Besylate 10 mg 08/25/23 09:00 08/25/23 09:37 Amlodipine Besylate 5 Mg Tablet PO 10 mg QAM ANUJA Administration Dextrose 12.5 gm 08/20/23 02:25 Dextrose 50% 25 Gm/50 Ml Syringe IV PUSH PRN PRN Hypoglycemia Protocol Folic Acid 1 mg 08/24/23 09:00 08/25/23 09:36 Folic Acid 1 Mg Tablet PO 1 mg DAILY ANUJA Administration Glucagon 1 mg 08/20/23 02:25 Glucagon For Inj 1 Mg Vial IM PRN PRN Hypoglycemia Protocol Glucose 15 gm 08/20/23 02:25 Glucose Oral Gel 15 Gm Of Glucse In 37.5 Gm Tube PO PRN PRN Hypoglycemia Protocol Hydralazine HCl 10 mg 08/20/23 11:02 08/21/23 20:38 Hydralazine Hcl 20 Mg/Ml Vial IV PUSH 10 mg Q8H PRN Administration Blood Pressure - High Hydralazine HCl 50 mg 08/25/23 12:00 08/25/23 12:51 Hydralazine Hcl 25 Mg Tablet PO Not Given TIDWM ANUJA Dextrose 1,000 mls @ 100 mls/hr 08/20/23 02:25 Dextrose 5% 1,000 Ml IVPB PRN PRN Hypoglycemia Protocol Albumin Human 50 mls @ 999 mls/hr 08/21/23 11:04 Albutein IVPB 09/20/23 11:03 Q10M PRN HYPOTENSION Insulin Aspart 2 - 5 units 08/20/23 12:00 08/25/23 11:43 Insulin Aspart (*Bkc) 100 Units/Ml SUB-Q Not Given Q6HR ANUJA Protocol Ondansetron HCl 4 mg 08/20/23 02:20 Ondansetron Inj 4 Mg/2 Ml Vial IV PUSH Q4H PRN Nausea Pantoprazole Sodium 40 mg 08/23/23 09:00 08/25/23 09:37 Pantoprazole 40 Mg Tablet PO 40 mg QAM ANUJA Administration Rosuvastatin Calcium 20 mg 08/24/23 09:00 08/25/23 09:36 Rosuvastatin 20 Mg Tablet PO 20 mg DAILY ANUJA Administration Sodium Chloride 20 ml 08/19/23 21:40 Central Line Flush IV PUSH PRN PRN after blood draws Sodium Chloride 10 ml 08/19/23 21:40 Central Line Flush IV PUSH PRN PRN with TPN bag changes Sodium Chloride 10 ml 08/19/23 22:00 08/25/23 07:26 Central Line Flush IV PUSH 10 ml Q8HR ANUJA Administration Sodium Chloride 10 ml 08/21/23 14:00 08/25/23 07:26 Central Line Flush IV PUSH 10 ml Q8HR ANUJA Administration Sodium Chloride 20 ml 08/21/23 10:22 08/23/23 03:51 Central Line Flush IV PUSH 20 ml PRN PRN Administration after blood draws Thiamine HCl 100 mg 08/24/23 09:00 08/25/23 09:37 Thiamine Hcl 100 Mg Tablet PO 100 mg QAM ANUJA Administration Radiology Results: ITS Impressions Abdomen/Pelvis CT 08/19/23 22:34 IMPRESSION: 1. Acute pancreatitis. 2: Severe degenerative changes at L4-5 and L5-S1 with deformity of the endplates at L4-5. Consider discitis/osteomyelitis in the appropriate clinical setting. If there is concern for discitis, further evaluation with MRI lumbar spine without and with contrast recommended. Head CT 08/20/23 05:43 Impression: No significant abnormality seen. Upper Quadrant Ultrasound 08/20/23 18:10 IMPRESSION: 1: Mild intrahepatic biliary dilatation. Abdomen X-Ray 08/22/23 19:52 IMPRESSION: 1. Normal bowel gas pattern. Chest X-Ray 08/24/23 07:42 Impression: Bibasilar atelectasis or scarring. Stable right IJ line. Labs Labs: Laboratory Results - last 24 hr 08/22/23 08/24/23 08/24/23 04:40 18:21 23:39 WBC RBC Hgb Hct MCV MCH MCHC RDW Plt Count MPV Immature Gran % (Auto) Neut % (Auto) Lymph % (Auto) [place] % (Auto) Eos % (Auto) Baso % (Auto) Lymph # (Auto) [place] # (Auto) Eos # (Auto) Baso # (Auto) Abs Immat Gran (auto) Absolute Neuts (auto) Absolute Nucleated RBC Nucleated RBC % Sodium Potassium Chloride Carbon Dioxide Anion Gap BUN Creatinine Estim Creat Clear Calc Estimated GFR Glucose POC Capillary Glucose 108 H 130 H Calcium Phosphorus Magnesium Total Bilirubin AST ALT Alkaline Phosphatase Total Protein Albumin 2.8 L Rxtyu-7-Hmwfxshhe 0.2 Srjsk-2-Jcjubkipt 0.7 Hwah-4-Hbtkddvd 0.3 L Xjbw-3-Cijnbhte 0.2 Gamma Globulins 0.6 L PEP Interpretation See note Lipase AMARIS Screen Negative ANCA Screen Negative 08/25/23 08/25/23 08/25/23 03:57 06:36 11:37 WBC 6.2 RBC 2.47 L Hgb 7.6 L Hct 23.5 L MCV 95.1 MCH 30.8 MCHC 32.3 RDW 17.1 H Plt Count 231 MPV 10.1 Immature Gran % (Auto) 0.2 Neut % (Auto) 63.6 Lymph % (Auto) 14.8 L [place] % (Auto) 15.6 H Eos % (Auto) 5.5 H Baso % (Auto) 0.3 Lymph # (Auto) 0.92 [place] # (Auto) 1.0 H Eos # (Auto) 0.3 Baso # (Auto) 0.0 Abs Immat Gran (auto) 0.01 Absolute Neuts (auto) 4.0 Absolute Nucleated RBC 0.000 Nucleated RBC % 0.0 Sodium 134 L Potassium 4.2 Chloride 100 Carbon Dioxide 31 H Anion Gap 3 L BUN 22 H D Creatinine 7.70 H Estim Creat Clear Calc 9 Estimated GFR 7 L Glucose 95 POC Capillary Glucose 107 H 103 Calcium 8.7 Phosphorus 3.4 Magnesium 2.1 Total Bilirubin 0.4 AST 25 ALT 12 Alkaline Phosphatase 97 Total Protein 6.0 L Albumin 2.9 L Dfejf-2-Haiybetox Ihtfj-5-Ggqoblbnv Oggp-5-Plcxxlvv Jxhs-8-Plgldfab Gamma Globulins PEP Interpretation Lipase 457 H AMARIS Screen ANCA Screen
[2023-08-25 16:38] LABS: Glucose Point of Care 118 mg/dl (65-105)
[2023-08-25] MEDS: hydrALAZINE HCL 25 MG TABLET 50 MG PO (17:47)
[2023-08-25 22:00] VITALS: BP 152/92; PULSE 94; RESP 20; TEMP 36.7; O2SAT 99
[2023-08-26] MEDS: HYDROcodone/acetaminophen (*CRX) 5-325 MG TABLET 1 TAB PO ×2 (05:33→12:41)
[2023-08-26 06:00] VITALS: BP 160/96; PULSE 92; RESP 16; TEMP 36.3; O2SAT 95
[2023-08-26 06:24] LABS: Glucose Point of Care 99 mg/dl (65-105)
[2023-08-26 06:24] LABS: Glucose Point of Care 100 mg/dl (65-105)
[2023-08-26 06:49] LABS: Hematocrit 25.8 % (42.0-52.0); Hemoglobin 8.2 g/dL (14.0-18.0); Mean Corpuscular HGB Conc 31.8 g/dl (32-36); Mean Corpuscular Hemoglobin 30.5 pg (26-34); Mean Corpuscular Volume 95.9 fl (80-100); Mean Platelet Volume 10.1 fl (7.4-10.4); Platelet Count Result 271 k/mm3 (150-375); Red Blood Count 2.69 M/mm3 (4.6-6.20); Red Cell Distribution Width 17.4 % (11.5-14.5); White Blood Count 7.2 K/mm3 (4.5-10.0)
[2023-08-26 07:01] LABS: INR 1.1
[2023-08-26 07:02] LABS: Alanine Aminotransferase 13 U/L (6-50); Albumin Level 3.2 g/dL (3.5-5.1); Alkaline Phosphatase 115 U/L (38-126); Anion Gap 6 mmol/L (4-12); Aspartate Amino Transferase 20 U/L (17-59); Bilirubin,Total 0.4 mg/dL (0.2-1.3); Blood Urea Nitrogen 29 mg/dL (9-20); Calcium 8.9 mg/dL (8.4-10.2); Carbon Dioxide 28 mmol/L (22-30); Chloride 98 mmol/L (98-107); Estimated CRCL calculation 7 ml/min; Estimated Glomerular Filt Rate 6; Glucose 97 mg/dL (65-110); Magnesium 2.2 mg/dL (1.6-2.3); Potassium 4.2 mmol/L (3.4-5.0); Sodium 132 mmol/L (137-145)
[2023-08-26] MEDS: CENTRAL LINE FLUSH 10 ML IV PUSH ×3 (07:20→22:00)
[2023-08-26] MEDS: amLODIPine BESYLATE 5 MG TABLET 10 MG PO (08:50)
[2023-08-26] MEDS: FOLIC ACID 1 MG TABLET PO (08:50)
[2023-08-26] MEDS: ROSUVASTATIN 20 MG TABLET PO (08:50)
[2023-08-26] MEDS: ACETAMINOPHEN 325 MG TABLET 650 MG PO (08:51)
[2023-08-26] MEDS: THIAMINE HCL 100 MG TABLET PO (08:51)
[2023-08-26] MEDS: PANTOPRAZOLE 40 MG TABLET PO (08:51)
[2023-08-26] MEDS: hydrALAZINE HCL 25 MG TABLET 50 MG PO ×3 (08:52→16:35)
[2023-08-26 09:01] LABS: Glucose Point of Care 109 mg/dl (65-105)
[2023-08-26 09:51] VITALS: BP 170/95
[2023-08-26] MEDS: hydrALAZINE HCL 20 MG/ML VIAL 10 MG IV PUSH (09:51)
[2023-08-26 10:38] VITALS: BP 153/92
[2023-08-26] MEDS: ONDANSETRON INJ 4 MG/2 ML VIAL IV PUSH (10:46)
[2023-08-26 12:39] LABS: Glucose Point of Care 89 mg/dl (65-105)
[2023-08-26 14:00] VITALS: BP 165/100; PULSE 106; RESP 18; TEMP 36.1; O2SAT 94
--- NOTE | 2023-08-26 14:01 | P.PNNP_ITS ---
Progress Note: A&P Assessment and Plan (1) SANG (acute kidney injury): Code(s): N17.9 - Acute kidney failure, unspecified Status: Acute Assessment and Plan: * assuming normal renal function at baseline * however, creatinine noted to be elevated at 5.7mg/dl several days ago prior to admission * creatinine on admission 16.5mg/dl associated with hyperkalemia and metabolic acidosis * evaluation to date: * CT of abd/pelvis - kidneys unremarkable * CPK okay * urine electrolytes non-prerenal * urine eosinophils negative * proteinuria noted * serologies noted - negative AMARIS, ANCA, antiGBM, kappa/lambda ratio, and SPEP; C3 low * minimal urine output noted since admission * admission confusion/AMS related to uremia (given improvement following [employer] [facility]/dialysis) * suspect multifactorial etiology: * secondary to antibiotics (?) - high vancomycin level noted * ongoing use of metformin + ARB + HCTZ prior to admission * pancreatitis * nausea/vomiting/diarrhea * prerenal factors * element of CKD present? -- known history of HTN and DM * HD tomorrow * s/p renal biopsy for today * follow repeat labs and UOP to assess for potential renal recovery (2) Acute hyperkalemia: Code(s): E87.5 - Hyperkalemia Status: Acute Assessment and Plan: * resolved * improvement with medical management * dialysis has also helped maintain stability * follow trend of potassium levels (3) Metabolic acidosis: Code(s): E87.20 - Acidosis, unspecified Status: Acute Assessment and Plan: * corrected * due to a few issues: * from SANG/ARF (and inability to clear uremic toxins) * lactic acidosis (complicated by metformin use prior to admission) * possible infection (known hx of osteomyelitis and missed antibiotic doses...) * admission ABG noted * dialysis should help compensate * follow trend of CO2 (4) Acute pancreatitis: Qualifiers: Acute pancreatitis complication: unspecified Pancreatitis type: unspecified pancreatitis type Qualified Code(s): K85.90 - Acute pancreatitis without necrosis or infection, unspecified Code(s): K85.90 - Acute pancreatitis without necrosis or infection, unspecified Status: Acute Assessment and Plan: * noted by history of abdominal pain, nausea, vomiting and diarrhea in association with elevated lipase * trending lipase levels * confirmed by CT scan -- no mention of gallbladder disease or gall stones * RUQ ultrasound and triglycerides okay * advance diet as tolerated * pain control (5) Altered mental status: Code(s): R41.82 - Altered mental status, unspecified Status: Acute Assessment and Plan: * improved if not back to baseline * noted on admission * however, awake and alert for the most part but difficult noted providing history that led to admission * CT of brain negative * highly suspect related to uremic encephalopathy and SANG/ARF given improvement with dialytic intervention * follow mental status (6) Essential hypertension: Code(s): I10 - Essential (primary) hypertension Status: Acute Assessment and Plan: * running high at this time * holding ARB and HCTZ given #1 * started on amlodipine - titrate dose * IV hydralazine PRN -on oral hydralazine * follow trend of hemodynamics (7) Alcoholism: Code(s): F10.20 - Alcohol dependence, uncomplicated Status: Acute Assessment and Plan: * known long standing history * on thiamine and folate * [facility] protocol (8) Hx of osteomyelitis: Code(s): Z87.39 - Personal history of other diseases of the musculoskeletal system and connective tissue Status: Acute Assessment and Plan: * reported history from Jun 2023 hospitalization * had been on outpatient IV antibiotics since that time * antibiotics to blame for #1 (?) * repeat culture data noted * follow vancomycin levels (9) Diabetes mellitus: Code(s): E11.9 - Type 2 diabetes mellitus without complications Status: Acute Assessment and Plan: * follow accu-cheks * glycemic control per hospitalists Will continue to follow. Subjective Date/time seen: 08/26/23 14:01 Interval history: Follow-up for acute kidney injury/acute renal failure. S/P renal biopsy earlier today and tolerated the procedure reasonably well; no other acute issues or problems voiced at the time of my visit; urine output remains suboptimal and BUN + creatinine rising without dialytic support as noted by AM labs; breathing/respiratory status stable; despite declining lipase level, still has on/off abdominal pain. Exam Narrative: General: WD/WN male in NAD Heart: normal S1 and S2; no rub Lungs: clear anteriorly Abdomen: soft, mild TTP, positive bowel sounds Extremities: no cyanosis or clubbing; no edema Skin: warm and intact Objective Data Vital Signs Vital Signs: Vital Signs Temp Pulse Resp BP Pulse Ox O2 Del Method 08/26/23 14:00 97.0 F L 106 H 18 165/100 H 94 08/26/23 08:52 Room Air 08/26/23 10:38 153/92 H 08/26/23 09:51 170/95 H 08/26/23 06:00 97.4 F L 92 16 160/96 H 95 08/25/23 22:00 98.1 F 94 20 152/92 H 99 Intake/Output Intake/Output: Intake & Output 08/23/23 08/24/23 08/25/23 08/26/23 23:59 23:59 23:59 23:59 Intake Total 480 990 790 300 Output Total 30 50 200 100 Balance 450 940 590 200 Meds/Results Medications: Active Medications Generic Name Dose Route Start Last Admin Trade Name Freq PRN Reason Stop Dose Admin Acetaminophen 650 mg 08/24/23 14:06 08/26/23 08:51 Acetaminophen 325 Mg Tablet PO 650 mg Q6H PRN Administration Pain Rated 5 or Less Hydrocodone Bitart/Acetaminophen 1 tab 08/22/23 17:28 08/26/23 12:41 Hydrocodone/Acetaminophen (*Crx) 5-325 Mg Tablet PO 1 tab Q6H PRN Administration Pain Rated 6 or Greater Amlodipine Besylate 10 mg 08/25/23 09:00 08/26/23 08:50 Amlodipine Besylate 5 Mg Tablet PO 10 mg QAM ANUJA Administration Dextrose 12.5 gm 08/20/23 02:25 Dextrose 50% 25 Gm/50 Ml Syringe IV PUSH PRN PRN Hypoglycemia Protocol Folic Acid 1 mg 08/24/23 09:00 08/26/23 08:50 Folic Acid 1 Mg Tablet PO 1 mg DAILY ANUJA Administration Glucagon 1 mg 08/20/23 02:25 Glucagon For Inj 1 Mg Vial IM PRN PRN Hypoglycemia Protocol Glucose 15 gm 08/20/23 02:25 Glucose Oral Gel 15 Gm Of Glucse In 37.5 Gm Tube PO PRN PRN Hypoglycemia Protocol Hydralazine HCl 10 mg 08/20/23 11:02 08/26/23 09:51 Hydralazine Hcl 20 Mg/Ml Vial IV PUSH 10 mg Q8H PRN Administration Blood Pressure - High Hydralazine HCl 50 mg 08/25/23 12:00 08/26/23 16:35 Hydralazine Hcl 25 Mg Tablet PO 50 mg TIDWM ANUJA Administration Dextrose 1,000 mls @ 100 mls/hr 08/20/23 02:25 Dextrose 5% 1,000 Ml IVPB PRN PRN Hypoglycemia Protocol Albumin Human 50 mls @ 999 mls/hr 08/21/23 11:04 Albutein IVPB 09/20/23 11:03 Q10M PRN HYPOTENSION Insulin Aspart 2 - 5 units 08/20/23 12:00 08/26/23 18:21 Insulin Aspart (*Bkc) 100 Units/Ml SUB-Q Not Given Q6HR ANUJA Protocol Ondansetron HCl 4 mg 08/20/23 02:20 08/26/23 10:46 Ondansetron Inj 4 Mg/2 Ml Vial IV PUSH 4 mg Q4H PRN Administration Nausea Pantoprazole Sodium 40 mg 08/23/23 09:00 08/26/23 08:51 Pantoprazole 40 Mg Tablet PO 40 mg QAM ANUJA Administration Rosuvastatin Calcium 20 mg 08/24/23 09:00 08/26/23 08:50 Rosuvastatin 20 Mg Tablet PO 20 mg DAILY ANUJA Administration Sodium Chloride 20 ml 08/19/23 21:40 Central Line Flush IV PUSH PRN PRN after blood draws Sodium Chloride 10 ml 08/19/23 21:40 Central Line Flush IV PUSH PRN PRN with TPN bag changes Sodium Chloride 10 ml 08/19/23 22:00 08/26/23 15:29 Central Line Flush IV PUSH Not Given Q8HR ANUJA Sodium Chloride 10 ml 08/21/23 14:00 08/26/23 15:29 Central Line Flush IV PUSH Not Given Q8HR ANUJA Sodium Chloride 20 ml 08/21/23 10:22 08/23/23 03:51 Central Line Flush IV PUSH 20 ml PRN PRN Administration after blood draws Thiamine HCl 100 mg 08/24/23 09:00 08/26/23 08:51 Thiamine Hcl 100 Mg Tablet PO 100 mg QAM ANUJA Administration Radiology Results: ITS Impressions Abdomen/Pelvis CT 08/19/23 22:34 IMPRESSION: 1. Acute pancreatitis. 2: Severe degenerative changes at L4-5 and L5-S1 with deformity of the endplates at L4-5. Consider discitis/osteomyelitis in the appropriate clinical setting. If there is concern for discitis, further evaluation with MRI lumbar spine without and with contrast recommended. Head CT 08/20/23 05:43 Impression: No significant abnormality seen. Upper Quadrant Ultrasound 08/20/23 18:10 IMPRESSION: 1: Mild intrahepatic biliary dilatation. Abdomen X-Ray 08/22/23 19:52 IMPRESSION: 1. Normal bowel gas pattern. Chest X-Ray 08/24/23 07:42 Impression: Bibasilar atelectasis or scarring. Stable right IJ line. Renal Biopsy Ultrasound 08/26/23 11:59 IMPRESSION: 1. Ultrasound-guided random left kidney core needle biopsy. Labs Labs: Laboratory Tests 08/26/23 06:39 08/26/23 06:39 Calcium 8.9 Phosphorus 4.0 Magnesium 2.2 Total Bilirubin 0.4 AST 20 ALT 13 Alkaline Phosphatase 115 Total Protein 6.0 L Albumin 3.2 L Microbiology 08/20/23 04:57 Blood Blood Culture - Final 08/20/23 04:53 Blood Blood Culture - Final [facility]up [facility]illing [facility] Follow-up Hospital Follow-up: [id number] [facility] Mod
--- NOTE | 2023-08-26 17:18 | PM.IMPN ---
Progress Note: A&P Assessment and Plan (1) Acute renal failure: Qualifiers: Acute renal failure type: unspecified Qualified Code(s): N17.9 - Acute kidney failure, unspecified Code(s): N17.9 - Acute kidney failure, unspecified Status: Acute Assessment and Plan: Patient presumably has no underlying kidney problems. Creatinine was 5.7 few days prior to admission on routine labs. Creatinine here was 16.5 with a BUN of 90. He had hyperkalemia and severe metabolic gap acidosis. CXR clear. Patient was started on a bicarb drip and potassium was treated appropriately. Potassium normal and metabolic acidosis better. Renal function was unchanged and urine output essentially anuric. Etiology unclear but Vanco random level elevated at 43. Total CK was normal. Suspect related to dehydration, medications, vanco toxicity and possibly underlying renal disease (DM, HTN?) Nephrology was consulted and appreciate their input. Patient was informed he will need HD and he agreed so a HD catheter placed on 08/20 HD 08/20, 08/21 and 08/23. He feels much better overall Most likely will need tunneled HD catheter and a plan for outpatient HD in [place] Monitor urine output, renal function and electrolytes. (2) Acute pancreatitis: Qualifiers: Acute pancreatitis complication: unspecified Pancreatitis type: unspecified pancreatitis type Qualified Code(s): K85.90 - Acute pancreatitis without necrosis or infection, unspecified Code(s): K85.90 - Acute pancreatitis without necrosis or infection, unspecified Status: Acute Assessment and Plan: Patient presents with abdominal pain, nausea, vomiting and diarrhea. Lipase was elevated on admission and climbed to 12.3K CT shows pancreatitis but does not mention gallbladder disease or cholelithiasis. RUQ US showing mild intrahepatic biliary dilation but no GS. LFTs normal. TG normal. Most likely related to his alcoholism Bloating but KUB showing nml bowel gas pattern Lipase better. Abd exam much better but has these episodes of abd pain with dry heaves. Requiring [place] 3x/day regularly. Follow for now Continue low fat diet. Continue supplements (3) Acute hyperkalemia: Code(s): E87.5 - Hyperkalemia Status: Acute Assessment and Plan: Patient presented with abdominal pain and found to have acute kidney injury and hyperkalemia at 6.5. SANG most likely the etiology of his hyperkalemia. Potassium was treated appropriately. Potassium normal now Dialysis to control electrolyte abnormalities. (4) Metabolic acidosis: Code(s): E87.20 - Acidosis, unspecified Status: Acute Assessment and Plan: Patient with severe metabolic gap acidosis. This was noted in the outpatient setting as well. Most likely related to his severe renal disease and lactic acidosis Treated witn IV fluids with bicarb. Control electrolytes with dialysis. (5) Lactic acidosis: Code(s): E87.20 - Acidosis, unspecified Status: Acute Assessment and Plan: Patient with severe lactic acidosis to 5.4 likely related to above. Blood cultures collected given that he has PICC line in place and has been missing doses of his antibiotics BCx NGTD Also related to metformin which is held. (6) Alcoholism: Code(s): F10.20 - Alcohol dependence, uncomplicated Status: Acute Assessment and Plan: Patient with history of longstanding alcoholism. LFTs normal. Liver appears normal by CT. INR 1.2 and protein level normal to suggest good intrinsic function. Started thiamine and folate. CIWA protocol has been stopped Librium and Ativan prn were available but now stopped (7) Altered mental status: Code(s): R41.82 - Altered mental status, unspecified Status: Acute Assessment and Plan: Patient was mildly obtunded but awake and mostly oriented on admission and had difficulty providing a detailed history CT the brain showing no acute findings. Suspect this is related to uremia and metabolic acidosis. Clinically improved after having HD. Continue to follow (8) Diabetes mellitus: Code(s): E11.9 - Type 2 diabetes mellitus without complications Status: Acute Assessment and Plan: Patient with history of diabetes. A1c 5.3. Continue sliding scale protocol with hypoglycemia protocol. (9) Essential hypertension: Code(s): I10 - Essential (primary) hypertension Status: Acute Assessment and Plan: Patient with essential hypertension. Patient's blood pressure was reviewed on 08/24 Blood pressure still poorly controlled Holding losartan and HCTZ. Norvasc advanced again and hydralazine added Continue to follow. Hydralazine available p.r.n. (10) Hx of osteomyelitis: Code(s): Z87.39 - Personal history of other diseases of the musculoskeletal system and connective tissue Status: Acute Assessment and Plan: Patient with a history of lumbar spine osteomyelitis. This may have been related to his lumbar surgery in March. He has been on IV antibiotics since June. CT scan showing severe degenerative changes at L4-5 and L5-S1 with deformity of the endplates at L4-5. Consider discitis/osteomyelitis in the appropriate clinical setting. Given the concern that his abx may be contributing to his renal failure, IV antibiotics stopped at this time Vanco level was very high and remained elevated BCx NGTD PICC line removed. Consider MRI of lumbar spine if symptomatic but will have patient follo-up with his ID physician in [place]. Follow Plan DVT prophylaxis -SCDs Code status -full Subjective Date/time seen: 08/26/23 17:18 Interval history: 57yo male with alcoholism, HTN, DM and currently undergoing treatment for osteomyelitis who presents with abdominal pain. No biopsy today because BP too high. +BMs. Bp high today Sp biospy Sp dialysis creat is 9 Case manage setting up for dialysis in [facility] Pt lives there but travel all over [facility] for work Livia Hickey Review of Systems Review of Systems: No specific complaints Exam Narrative: General; younger male bit anxious Neck - right IJ HD catheter in place Chest - CTA bilaterally, nml RR CV - RRR S1/S2 Abd - Soft, NT/ND, +BS Ext - No pedal edema Psych - Nml mood Skin - Warm and dry Objective Data Vital Signs Vital Signs: Vital Signs - 24 hr 08/25/23 22:00 08/26/23 06:00 08/26/23 09:51 Temperature 36.7 C 36.3 C L Pulse Rate 94 92 Respiratory Rate 20 16 Blood Pressure 152/92 H 160/96 H 170/95 H Pulse Oximetry 99 95 Oxygen Delivery 08/26/23 10:38 08/26/23 08:52 08/26/23 14:00 Temperature 36.1 C L Pulse Rate 106 H Respiratory Rate 18 Blood Pressure 153/92 H 165/100 H Pulse Oximetry 94 Oxygen Delivery Room Air Intake/Output Intake/Output: Intake & Output 08/23/23 08/24/23 08/25/23 08/26/23 23:59 23:59 23:59 23:59 Intake Total 480 990 790 300 Output Total 30 50 200 100 Balance 450 940 590 200 Meds/Results Medications: Active Medications Generic Name Dose Route Start Last Admin Trade Name Freq PRN Reason Stop Dose Admin Acetaminophen 650 mg 08/24/23 14:06 08/26/23 08:51 Acetaminophen 325 Mg Tablet PO 650 mg Q6H PRN Administration Pain Rated 5 or Less Hydrocodone Bitart/Acetaminophen 1 tab 08/22/23 17:28 08/26/23 12:41 Hydrocodone/Acetaminophen (*Crx) 5-325 Mg Tablet PO 1 tab Q6H PRN Administration Pain Rated 6 or Greater Amlodipine Besylate 10 mg 08/25/23 09:00 08/26/23 08:50 Amlodipine Besylate 5 Mg Tablet PO 10 mg QAM ANUJA Administration Dextrose 12.5 gm 08/20/23 02:25 Dextrose 50% 25 Gm/50 Ml Syringe IV PUSH PRN PRN Hypoglycemia Protocol Folic Acid 1 mg 08/24/23 09:00 08/26/23 08:50 Folic Acid 1 Mg Tablet PO 1 mg DAILY ANUJA Administration Glucagon 1 mg 08/20/23 02:25 Glucagon For Inj 1 Mg Vial IM PRN PRN Hypoglycemia Protocol Glucose 15 gm 08/20/23 02:25 Glucose Oral Gel 15 Gm Of Glucse In 37.5 Gm Tube PO PRN PRN Hypoglycemia Protocol Hydralazine HCl 10 mg 08/20/23 11:02 08/26/23 09:51 Hydralazine Hcl 20 Mg/Ml Vial IV PUSH 10 mg Q8H PRN Administration Blood Pressure - High Hydralazine HCl 50 mg 08/25/23 12:00 08/26/23 16:35 Hydralazine Hcl 25 Mg Tablet PO 50 mg TIDWM ANUJA Administration Dextrose 1,000 mls @ 100 mls/hr 08/20/23 02:25 Dextrose 5% 1,000 Ml IVPB PRN PRN Hypoglycemia Protocol Albumin Human 50 mls @ 999 mls/hr 08/21/23 11:04 Albutein IVPB 09/20/23 11:03 Q10M PRN HYPOTENSION Insulin Aspart 2 - 5 units 08/20/23 12:00 08/26/23 12:00 Insulin Aspart (*Bkc) 100 Units/Ml SUB-Q Not Given Q6HR COUNT [facility]CLUDES [facility] Protocol Ondansetron HCl 4 mg 08/20/23 02:20 08/26/23 10:46 Ondansetron Inj 4 Mg/2 Ml Vial IV PUSH 4 mg Q4H PRN Administration Nausea Pantoprazole Sodium 40 mg 08/23/23 09:00 08/26/23 08:51 Pantoprazole 40 Mg Tablet PO 40 mg QAM ANUJA Administration Rosuvastatin Calcium 20 mg 08/24/23 09:00 08/26/23 08:50 Rosuvastatin 20 Mg Tablet PO 20 mg DAILY ANUJA Administration Sodium Chloride 20 ml 08/19/23 21:40 Central Line Flush IV PUSH PRN PRN after blood draws Sodium Chloride 10 ml 08/19/23 21:40 Central Line Flush IV PUSH PRN PRN with TPN bag changes Sodium Chloride 10 ml 08/19/23 22:00 08/26/23 15:29 Central Line Flush IV PUSH Not Given Q8HR ANUJA Sodium Chloride 10 ml 08/21/23 14:00 08/26/23 15:29 Central Line Flush IV PUSH Not Given Q8HR ANUJA Sodium Chloride 20 ml 08/21/23 10:22 08/23/23 03:51 Central Line Flush IV PUSH 20 ml PRN PRN Administration after blood draws Thiamine HCl 100 mg 08/24/23 09:00 08/26/23 08:51 Thiamine Hcl 100 Mg Tablet PO 100 mg QAM ANUJA Administration Radiology Results: ITS Impressions Abdomen/Pelvis CT 08/19/23 22:34 IMPRESSION: 1. Acute pancreatitis. 2: Severe degenerative changes at L4-5 and L5-S1 with deformity of the endplates at L4-5. Consider discitis/osteomyelitis in the appropriate clinical setting. If there is concern for discitis, further evaluation with MRI lumbar spine without and with contrast recommended. Head CT 08/20/23 05:43 Impression: No significant abnormality seen. Upper Quadrant Ultrasound 08/20/23 18:10 IMPRESSION: 1: Mild intrahepatic biliary dilatation. Abdomen X-Ray 08/22/23 19:52 IMPRESSION: 1. Normal bowel gas pattern. Chest X-Ray 08/24/23 07:42 Impression: Bibasilar atelectasis or scarring. Stable right IJ line. Renal Biopsy Ultrasound 08/26/23 11:59 IMPRESSION: 1. Ultrasound-guided random left kidney core needle biopsy. Labs Labs: Laboratory Results - last 24 hr 08/26/23 08/26/23 08/26/23 00:04 05:36 06:39 WBC 7.2 RBC 2.69 L Hgb 8.2 L Hct 25.8 L MCV 95.9 MCH 30.5 MCHC 31.8 L RDW 17.4 H Plt Count 271 MPV 10.1 PT 15.0 H INR 1.1 APTT 37.0 H Sodium 132 L Potassium 4.2 Chloride 98 Carbon Dioxide 28 Anion Gap 6 BUN 29 H Creatinine 9.60 H Estim Creat Clear Calc 7 Estimated GFR 6 L Glucose 97 POC Capillary Glucose 99 100 Calcium 8.9 Phosphorus 4.0 Magnesium 2.2 Total Bilirubin 0.4 AST 20 ALT 13 Alkaline Phosphatase 115 Total Protein 6.0 L Albumin 3.2 L 08/26/23 08/26/23 08:57 12:35 WBC RBC Hgb Hct MCV MCH MCHC RDW Plt Count MPV PT INR APTT Sodium Potassium Chloride Carbon Dioxide Anion Gap BUN Creatinine Estim Creat Clear Calc Estimated GFR Glucose POC Capillary Glucose 109 H 89 Calcium Phosphorus Magnesium Total Bilirubin AST ALT Alkaline Phosphatase Total Protein Albumin
[2023-08-26 18:30] LABS: Glucose Point of Care 128 mg/dl (65-105)
[2023-08-26 18:34] LABS: Hepatitis B Core IgM Result Negative (Negative)
[2023-08-26 19:39] LABS: Creatinine, Random Urine 70 mg/dL (20-320); Total Protein/Creatinine Ratio 14529 mg/g creat (25-148)
[2023-08-26 22:00] VITALS: BP 151/86; PULSE 103; RESP 18; TEMP 36.6; O2SAT 94
[2023-08-27] VITALS (22 sets, daily range): BP systolic 140–173; BP diastolic 73–98; PULSE 91–111; RESP 16–18; TEMP 36.6–37.4; O2SAT 95–100
[2023-08-27 00:21] LABS: Glucose Point of Care 109 mg/dl (65-105)
[2023-08-27] MEDS: CENTRAL LINE FLUSH 10 ML IV PUSH ×4 (06:05→20:54)
[2023-08-27] MEDS: HYDROcodone/acetaminophen (*CRX) 5-325 MG TABLET 1 TAB PO (06:18)
[2023-08-27 06:43] LABS: Anion Gap 10 mmol/L (4-12); Blood Urea Nitrogen 38 mg/dL (9-20); Calcium 8.7 mg/dL (8.4-10.2); Carbon Dioxide 24 mmol/L (22-30); Chloride 99 mmol/L (98-107); Estimated CRCL calculation 6 ml/min; Estimated Glomerular Filt Rate 5; Glucose 100 mg/dL (65-110); Potassium 4.5 mmol/L (3.4-5.0); Sodium 133 mmol/L (137-145)
[2023-08-27 07:37] LABS: Glucose Point of Care 105 mg/dl (65-105)
[2023-08-27] MEDS: FOLIC ACID 1 MG TABLET PO (08:05)
[2023-08-27] MEDS: PANTOPRAZOLE 40 MG TABLET PO (08:06)
[2023-08-27] MEDS: ROSUVASTATIN 20 MG TABLET PO (08:06)
[2023-08-27] MEDS: THIAMINE HCL 100 MG TABLET PO (08:06)
[2023-08-27] MEDS: ACETAMINOPHEN 325 MG TABLET 650 MG PO ×3 (08:11→20:53)
[2023-08-27] MEDS: EPOETIN ALFA-EPBX 10,000 UNITS/ML VIAL 10000 UNITS IV PUSH (11:05)
[2023-08-27 11:32] LABS: Glucose Point of Care 105 mg/dl (65-105)
--- NOTE | 2023-08-27 11:43 | P.PNNP_ITS ---
Progress Note: A&P Assessment and Plan (1) SANG (acute kidney injury): Code(s): N17.9 - Acute kidney failure, unspecified Status: Acute Assessment and Plan: * assuming normal renal function at baseline * however, creatinine noted to be elevated at 5.7mg/dl several days ago prior to admission * creatinine on admission 16.5mg/dl associated with hyperkalemia and metabolic acidosis * evaluation to date: * CT of abd/pelvis - kidneys unremarkable * CPK okay * urine electrolytes non-prerenal * urine eosinophils negative * proteinuria noted * serologies noted - negative AMARIS, ANCA, antiGBM, kappa/lambda ratio, and SPEP; C3 low * minimal urine output noted since admission * admission confusion/AMS related to uremia (given improvement following [employer]/dialysis) * suspect multifactorial etiology: * secondary to antibiotics (?) - high vancomycin level noted * ongoing use of metformin + ARB + HCTZ prior to admission * pancreatitis * nausea/vomiting/diarrhea * prerenal factors * element of CKD present? -- known history of HTN and DM * HD today * s/p renal biopsy on 08/26/23 -- hopefully some preliminary results today * follow repeat labs and UOP to assess for potential renal recovery (2) Acute hyperkalemia: Code(s): E87.5 - Hyperkalemia Status: Acute Assessment and Plan: * resolved * improvement with medical management * dialysis has also helped maintain stability * follow trend of potassium levels (3) Metabolic acidosis: Code(s): E87.20 - Acidosis, unspecified Status: Acute Assessment and Plan: * corrected * due to a few issues: * from SANG/ARF (and inability to clear uremic toxins) * lactic acidosis (complicated by metformin use prior to admission) * possible infection (known hx of osteomyelitis and missed antibiotic doses...) * admission ABG noted * dialysis should help compensate * follow trend of CO2 (4) Acute pancreatitis: Qualifiers: Acute pancreatitis complication: unspecified Pancreatitis type: unspecified pancreatitis type Qualified Code(s): K85.90 - Acute pancreatitis without necrosis or infection, unspecified Code(s): K85.90 - Acute pancreatitis without necrosis or infection, unspecified Status: Acute Assessment and Plan: * noted by history of abdominal pain, nausea, vomiting and diarrhea in associat ion with elevated lipase * trending lipase levels * confirmed by CT scan -- no mention of gallbladder disease or gall stones * RUQ ultrasound and triglycerides okay * advance diet as tolerated * pain control (5) Altered mental status: Code(s): R41.82 - Altered mental status, unspecified Status: Acute Assessment and Plan: * improved if not back to baseline * noted on admission * however, awake and alert for the most part but difficult noted providing history that led to admission * CT of brain negative * highly suspect related to uremic encephalopathy and SANG/ARF given improvement with dialytic intervention * follow mental status (6) Anemia: Code(s): D64.9 - Anemia, unspecified Status: Acute Assessment and Plan: * presumably due to acute illness and SANG/ARF * on Epogen with HD * follow trend of H/H (7) Essential hypertension: Code(s): I10 - Essential (primary) hypertension Status: Acute Assessment and Plan: * running high at this time * holding ARB and HCTZ given #1 * started on amlodipine - titrate dose * IV hydralazine PRN -on oral hydralazine * follow trend of hemodynamics (8) Alcoholism: Code(s): F10.20 - Alcohol dependence, uncomplicated Status: Acute Assessment and Plan: * known long standing history * on thiamine and folate * CICT protocol (9) Hx of osteomyelitis: Code(s): Z87.39 - Personal history of other diseases of the musculoskeletal system and connective tissue Status: Acute Assessment and Plan: * reported history from Jun 2023 hospitalization * had been on outpatient IV antibiotics since that time * antibiotics to blame for #1 (?) * repeat culture data noted * follow vancomycin levels (10) Diabetes mellitus: Code(s): E11.9 - Type 2 diabetes mellitus without complications Status: Acute Assessment and Plan: * follow accu-cheks * glycemic control per hospitalists Will continue to follow. Subjective Date/time seen: 08/27/23 11:43 Interval history: Follow-up for acute kidney injury/acute renal failure. Tolerating dialysis treatment at the time of my visit (seen on HD at 11:30AM); tolerated renal biopsy yesterday without any issues or problems; still with on/off abdominal pain although pain medication seem to help with this issue in general; no other events overnight or earlier this morning. Exam Narrative: General: WD/WN male in NAD Heart: normal S1 and S2; no rub Lungs: clear anteriorly Abdomen: soft, mild TTP, positive bowel sounds Extremities: no cyanosis or clubbing; no edema Skin: no rash Objective Data Vital Signs Vital Signs: Vital Signs Temp Pulse Resp BP Pulse Ox 08/27/23 11:30 95 159/84 H 08/27/23 11:15 97 158/84 H 08/27/23 11:00 92 155/82 H 08/27/23 10:45 91 159/83 H 08/27/23 10:30 94 140/73 08/27/23 10:15 97 147/88 H 08/27/23 10:00 96 158/87 H 08/27/23 09:45 94 140/75 08/27/23 09:30 96 151/80 H 08/27/23 09:15 93 160/94 H 08/27/23 09:00 96 167/96 H 08/27/23 08:47 97.9 F 100 18 173/98 H 08/27/23 08:17 99 165/85 H 08/27/23 06:00 98.6 F 99 16 145/86 H 100 08/26/23 22:00 97.8 F 103 H 18 151/86 H 94 08/26/23 14:00 97.0 F L 106 H 18 165/100 H 94 Intake/Output Intake/Output: Intake & Output 08/24/23 08/25/23 08/26/23 08/27/23 23:59 23:59 23:59 23:59 Intake Total 990 790 540 340 Output Total 50 200 100 110 Balance 940 590 440 230 Meds/Results Medications: Active Medications Generic Name Dose Route Start Last Admin Trade Name Freq PRN Reason Stop Dose Admin Acetaminophen 650 mg 08/24/23 14:06 08/27/23 08:11 Acetaminophen 325 Mg Tablet PO 650 mg Q6H PRN Administration Pain Rated 5 or Less Hydrocodone Bitart/Acetaminophen 1 tab 08/22/23 17:28 08/27/23 06:18 Hydrocodone/Acetaminophen (*Crx) 5-325 Mg Tablet PO 1 tab Q6H PRN Administration Pain Rated 6 or Greater Amlodipine Besylate 10 mg 08/25/23 09:00 08/27/23 10:08 Amlodipine Besylate 5 Mg Tablet PO Not Given QAM [facility] Dextrose 12.5 gm 08/20/23 02:25 Dextrose 50% 25 Gm/50 Ml Syringe IV PUSH PRN PRN Hypoglycemia Protocol Epoetin Toñito-epbx 10,000 units 08/27/23 20:00 08/27/23 11:05 Epoetin [place]-Epbx 10,000 Units/Ml Vial IV PUSH 08/27/23 20:01 10,000 units ONCE ONE Administration Folic Acid 1 mg 08/24/23 09:00 08/27/23 08:05 Folic Acid 1 Mg Tablet PO 1 mg DAILY ANUJA Administration Glucagon 1 mg 08/20/23 02:25 Glucagon For Inj 1 Mg Vial IM PRN PRN Hypoglycemia Protocol Glucose 15 gm 08/20/23 02:25 Glucose Oral Gel 15 Gm Of Glucse In 37.5 Gm Tube PO PRN PRN Hypoglycemia Protocol Hydralazine HCl 10 mg 08/20/23 11:02 08/26/23 09:51 Hydralazine Hcl 20 Mg/Ml Vial IV PUSH 10 mg Q8H PRN Administration Blood Pressure - High Hydralazine HCl 50 mg 08/25/23 12:00 08/27/23 12:58 Hydralazine Hcl 25 Mg Tablet PO 50 mg TIDWM ANUJA Administration Dextrose 1,000 mls @ 100 mls/hr 08/20/23 02:25 Dextrose 5% 1,000 Ml IVPB PRN PRN Hypoglycemia Protocol Albumin Human 50 mls @ 999 mls/hr 08/21/23 11:04 Albutein IVPB 09/20/23 11:03 Q10M PRN HYPOTENSION Insulin Aspart 2 - 5 units 08/20/23 12:00 08/27/23 11:41 Insulin Aspart (*Bkc) 100 Units/Ml SUB-Q Not Given Q6HR [facility] Protocol Metoprolol Tartrate 25 mg 08/27/23 21:00 Metoprolol Tartrate 25 Mg Tablet PO Q12HR [facility] Ondansetron HCl 4 mg 08/20/23 02:20 08/26/23 10:46 Ondansetron Inj 4 Mg/2 Ml Vial IV PUSH 4 mg Q4H PRN Administration Nausea Pantoprazole Sodium 40 mg 08/23/23 09:00 08/27/23 08:06 Pantoprazole 40 Mg Tablet PO 40 mg QAM ANUJA Administration Rosuvastatin Calcium 20 mg 08/24/23 09:00 08/27/23 08:06 Rosuvastatin 20 Mg Tablet PO 20 mg DAILY ANUJA Administration Sodium Chloride 20 ml 08/19/23 21:40 Central Line Flush IV PUSH PRN PRN after blood draws Sodium Chloride 10 ml 08/19/23 21:40 Central Line Flush IV PUSH PRN PRN with TPN bag changes Sodium Chloride 10 ml 08/19/23 22:00 08/27/23 05:25 Central Line Flush IV PUSH Not Given Q8HR ANUJA Sodium Chloride 10 ml 08/21/23 14:00 08/27/23 06:05 Central Line Flush IV PUSH 10 ml Q8HR ANUJA Administration Sodium Chloride 20 ml 08/21/23 10:22 08/23/23 03:51 Central Line Flush IV PUSH 20 ml PRN PRN Administration after blood draws Thiamine HCl 100 mg 08/24/23 09:00 08/27/23 08:06 Thiamine Hcl 100 Mg Tablet PO 100 mg QAM ANUJA Administration Radiology Results: ITS Impressions Abdomen/Pelvis CT 08/19/23 22:34 IMPRESSION: 1. Acute pancreatitis. 2: Severe degenerative changes at L4-5 and L5-S1 with deformity of the endplates at L4-5. Consider discitis/osteomyelitis in the appropriate clinical setting. If there is concern for discitis, further evaluation with MRI lumbar spine without and with contrast recommended. Head CT 08/20/23 05:43 Impression: No significant abnormality seen. Upper Quadrant Ultrasound 08/20/23 18:10 IMPRESSION: 1: Mild intrahepatic biliary dilatation. Abdomen X-Ray 08/22/23 19:52 IMPRESSION: 1. Normal bowel gas pattern. Renal Biopsy Ultrasound 08/26/23 11:59 IMPRESSION: 1. Ultrasound-guided random left kidney core needle biopsy. Chest X-Ray 08/27/23 07:09 Impression: Worsening [id number] bibasilar pulmonary edema with increasing small bilateral pleural effusions. Stable support line. Labs Labs: Laboratory Tests 08/26/23 06:39 08/27/23 06:03
--- NOTE | 2023-08-27 12:45 | P.PNIM_ITS ---
Progress Note: A&P Assessment and Plan (1) Acute renal failure: Qualifiers: Acute renal failure type: unspecified Qualified Code(s): N17.9 - Acute kidney failure, unspecified Code(s): N17.9 - Acute kidney failure, unspecified Status: Acute Assessment and Plan: Patient presumably has no underlying kidney problems. Creatinine was 5.7 few days prior to admission on routine labs. Creatinine here was 16.5 with a BUN of 90. He had hyperkalemia and severe metabolic gap acidosis. CXR clear. Patient was started on a bicarb drip and potassium was treated appropriately. Potassium normal and metabolic acidosis better. Renal function was unchanged and urine output essentially anuric. Etiology unclear but Vanco random level elevated at 43. Total CK was normal. Suspect related to dehydration, medications, vanco toxicity and possibly underlying renal disease (DM, HTN?) Nephrology was consulted and appreciate their input. Patient was informed he will need HD and he agreed so a HD catheter placed on 08/20 HD 08/20, 08/21 and 08/23. 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 (2) Acute pancreatitis: Qualifiers: Acute pancreatitis complication: unspecified Pancreatitis type: unspecified pancreatitis type Qualified Code(s): K85.90 - Acute pancreatitis without necrosis or infection, unspecified Code(s): K85.90 - Acute pancreatitis without necrosis or infection, unspecified Status: Acute Assessment and Plan: Patient presents with abdominal pain, nausea, vomiting and diarrhea. Lipase was elevated on admission and climbed to 12.3K CT shows pancreatitis but does not mention gallbladder disease or cholelithiasis. RUQ US showing mild intrahepatic biliary dilation but no GS. LFTs normal. TG normal. Most likely related to his alcoholism Bloating but KUB showing nml bowel gas pattern Lipase better. Abd exam much better but has these episodes of abd pain with dry heaves. Requiring [place] 3x/day regularly. Follow for now Continue low fat diet. Continue supplements (3) Acute hyperkalemia: Code(s): E87.5 - Hyperkalemia Status: Acute Assessment and Plan: Patient presented with abdominal pain and found to have acute kidney injury and hyperkalemia at 6.5. SANG most likely the etiology of his hyperkalemia. Potassium was treated appropriately. Potassium normal now Dialysis to control electrolyte abnormalities. (4) Metabolic acidosis: Code(s): E87.20 - Acidosis, unspecified Status: Acute Assessment and Plan: Patient with severe metabolic gap acidosis. This was noted in the outpatient setting as well. Most likely related to his severe renal disease and lactic acidosis Treated witn IV fluids with bicarb. Control electrolytes with dialysis. (5) Lactic acidosis: Code(s): E87.20 - Acidosis, unspecified Status: Acute Assessment and Plan: Patient with severe lactic acidosis to 5.4 likely related to above. Blood cultures collected given that he has PICC line in place and has been philip ng doses of his antibiotics BCx NGTD Also related to metformin which is held. (6) Alcoholism: Code(s): F10.20 - Alcohol dependence, uncomplicated Status: Acute Assessment and Plan: Patient with history of longstanding alcoholism. LFTs normal. Liver appears normal by CT. INR 1.2 and protein level normal to suggest good intrinsic function. Started thiamine and folate. CIWA protocol has been stopped Librium and Ativan prn were available but now stopped (7) Altered mental status: Code(s): R41.82 - Altered mental status, unspecified Status: Acute Assessment and Plan: Patient was mildly obtunded but awake and mostly oriented on admission and had difficulty providing a detailed history CT the brain showing no acute findings. Suspect this is related to uremia and metabolic acidosis. Clinically improved after having HD. Continue to follow (8) Diabetes mellitus: Code(s): E11.9 - Type 2 diabetes mellitus without complications Status: Acute Assessment and Plan: Patient with history of diabetes. A1c 5.3. Continue sliding scale protocol with hypoglycemia protocol. (9) Essential hypertension: Code(s): I10 - Essential (primary) hypertension Status: Acute Assessment and Plan: Patient with essential hypertension. Patient's blood pressure was reviewed on 08/24 Blood pressure still poorly controlled Holding losartan and HCTZ. Norvasc advanced again and hydralazine added Continue to follow. Hydralazine available p.r.n. (10) Hx of osteomyelitis: Code(s): Z87.39 - Personal history of other diseases of the musculoskeletal system and connective tissue Status: Acute Assessment and Plan: Patient with a history of lumbar spine osteomyelitis. This may have been related to his lumbar surgery in March. He has been on IV antibiotics since June. CT scan showing severe degenerative changes at L4-5 and L5-S1 with deformity of the endplates at L4-5. Consider discitis/osteomyelitis in the appropriate clinical setting. Given the concern that his abx may be contributing to his renal failure, IV antibiotics stopped at this time Vanco level was very high and remained elevated BCx NGTD PICC line removed. Consider MRI of lumbar spine if symptomatic but will have patient follo-up with his ID physician in [place]. Subjective Date/time seen: 08/27/23 12:45 Interval history: 57yo male with alcoholism, HTN, DM and currently undergoing treatment for osteomyelitis who presents with abdominal pain. No biopsy today because BP too high. +BMs. Bp high today Sp biospy Sp dialysis Case manage setting up for dialysis in [facility] Pt lives there but travel all over [facility] for work [place], Livia Alfred is 11 today Pt having dialysis Pt to have tunnelled hemodialysis catheter to be placed today Review of Systems Review of Systems: No specific complaints Exam Narrative: General; younger male bit anxious Neck - right IJ HD catheter in place Chest - CTA bilaterally, nml RR CV - RRR S1/S2 Abd - Soft, NT/ND, +BS Ext - No pedal edema Psych - Nml mood Skin - Warm and dry Objective Data Vital Signs Vital Signs: Vital Signs - 24 hr 08/26/23 14:00 08/26/23 22:00 08/27/23 06:00 Temperature 36.1 C L 36.6 C 37.0 C Pulse Rate 106 H 103 H 99 Respiratory Rate 18 18 16 Blood Pressure 165/100 H 151/86 H 145/86 H Pulse Oximetry 94 94 100 08/27/23 08:17 08/27/23 08:47 08/27/23 09:00 Temperature 36.6 C Pulse Rate 99 100 96 Respiratory Rate 18 Blood Pressure 165/85 H 173/98 H 167/96 H Pulse Oximetry 08/27/23 09:15 08/27/23 09:30 08/27/23 09:45 Temperature Pulse Rate 93 96 94 Respiratory Rate Blood Pressure 160/94 H 151/80 H 140/75 Pulse Oximetry 08/27/23 10:00 08/27/23 10:15 08/27/23 10:30 Temperature Pulse Rate 96 97 94 Respiratory Rate Blood Pressure 158/87 H 147/88 H 140/73 Pulse Oximetry 08/27/23 10:45 08/27/23 11:00 08/27/23 11:15 Temperature Pulse Rate 91 92 97 Respiratory Rate Blood Pressure 159/83 H 155/82 H 158/84 H Pulse Oximetry 08/27/23 11:30 08/27/23 11:45 08/27/23 12:00 Temperature Pulse Rate 95 99 101 H Respiratory Rate Blood Pressure 159/84 H 156/86 H 164/89 H Pulse Oximetry 08/27/23 12:15 Temperature Pulse Rate 102 H Respiratory Rate Blood Pressure 166/85 H Pulse Oximetry Intake/Output Intake/Output: Intake & Output 08/24/23 08/25/23 08/26/23 08/27/23 23:59 23:59 23:59 23:59 Intake Total 990 790 540 340 Output Total 50 200 100 110 Balance 940 590 440 230 Meds/Results Medications: Active Medications Generic Name Dose Route Start Last Admin Trade Name Freq PRN Reason Stop Dose Admin Acetaminophen 650 mg 08/24/23 14:06 08/27/23 08:11 Acetaminophen 325 Mg Tablet PO 650 mg Q6H PRN Administration Pain Rated 5 or Less Hydrocodone Bitart/Acetaminophen 1 tab 08/22/23 17:28 08/27/23 06:18 Hydrocodone/Acetaminophen (*Crx) 5-325 Mg Tablet PO 1 tab Q6H PRN Administration Pain Rated 6 or Greater Amlodipine Besylate 10 mg 08/25/23 09:00 08/27/23 10:08 Amlodipine Besylate 5 Mg Tablet PO Not Given QAM ANUJA Dextrose 12.5 gm 08/20/23 02:25 Dextrose 50% 25 Gm/50 Ml Syringe IV PUSH PRN PRN Hypoglycemia Protocol Epoetin Toñito-epbx 10,000 units 08/27/23 20:00 08/27/23 11:05 Epoetin Tñoito-Epbx 10,000 Units/Ml Vial IV PUSH 08/27/23 20:01 10,000 units ONCE ONE Administration Folic Acid 1 mg 08/24/23 09:00 08/27/23 08:05 Folic Acid 1 Mg Tablet PO 1 mg DAILY ANUJA Administration Glucagon 1 mg 08/20/23 02:25 Glucagon For Inj 1 Mg Vial IM PRN PRN Hypoglycemia Protocol Glucose 15 gm 08/20/23 02:25 Glucose Oral Gel 15 Gm Of Glucse In 37.5 Gm Tube PO PRN PRN Hypoglycemia Protocol Hydralazine HCl 10 mg 08/20/23 11:02 08/26/23 09:51 Hydralazine Hcl 20 Mg/Ml Vial IV PUSH 10 mg Q8H PRN Administration Blood Pressure - High Hydralazine HCl 50 mg 08/25/23 12:00 08/27/23 10:07 Hydralazine Hcl 25 Mg Tablet PO Not Given TIDWM ANUJA Dextrose 1,000 mls @ 100 mls/hr 08/20/23 02:25 Dextrose 5% 1,000 Ml IVPB PRN PRN Hypoglycemia Protocol Albumin Human 50 mls @ 999 mls/hr 08/21/23 11:04 Albutein IVPB 09/20/23 11:03 Q10M PRN HYPOTENSION Insulin Aspart 2 - 5 units 08/20/23 12:00 08/27/23 11:41 Insulin Aspart (*Bkc) 100 Units/Ml SUB-Q Not Given Q6HR ANUJA Protocol Ondansetron HCl 4 mg 08/20/23 02:20 08/26/23 10:46 Ondansetron Inj 4 Mg/2 Ml Vial IV PUSH 4 mg Q4H PRN Administration Nausea Pantoprazole Sodium 40 mg 08/23/23 09:00 08/27/23 08:06 Pantoprazole 40 Mg Tablet PO 40 mg QAM ANUJA Administration Rosuvastatin Calcium 20 mg 08/24/23 09:00 08/27/23 08:06 Rosuvastatin 20 Mg Tablet PO 20 mg DAILY ANUJA Administration Sodium Chloride 20 ml 08/19/23 21:40 Central Line Flush IV PUSH PRN PRN after blood draws Sodium Chloride 10 ml 08/19/23 21:40 Central Line Flush IV PUSH PRN PRN with TPN bag changes Sodium Chloride 10 ml 08/19/23 22:00 08/27/23 05:25 Central Line Flush IV PUSH Not Given Q8HR ANUJA Sodium Chloride 10 ml 08/21/23 14:00 08/27/23 06:05 Central Line Flush IV PUSH 10 ml Q8HR ANUJA Administration Sodium Chloride 20 ml 08/21/23 10:22 08/23/23 03:51 Central Line Flush IV PUSH 20 ml PRN PRN Administration after blood draws Thiamine HCl 100 mg 08/24/23 09:00 08/27/23 08:06 Thiamine Hcl 100 Mg Tablet PO 100 mg QAM ANUJA Administration Radiology Results: ITS Impressions Abdomen/Pelvis CT 08/19/23 22:34 IMPRESSION: 1. Acute pancreatitis. 2: Severe degenerative changes at L4-5 and L5-S1 with deformity of the endplates at L4-5. Consider discitis/osteomyelitis in the appropriate clinical setting. If there is concern for discitis, further evaluation with MRI lumbar spine without and with contrast recommended. Head CT 08/20/23 05:43 Impression: No significant abnormality seen. Upper Quadrant Ultrasound 08/20/23 18:10 IMPRESSION: 1: Mild intrahepatic biliary dilatation. Abdomen X-Ray 08/22/23 19:52 IMPRESSION: 1. Normal bowel gas pattern. Renal Biopsy Ultrasound 08/26/23 11:59 IMPRESSION: 1. Ultrasound-guided random left kidney core needle biopsy. Chest X-Ray 08/27/23 07:09 Impression: Worsening [id number]-lj-[id number] bibasilar pulmonary edema with increasing small bilateral pleural effusions. Stable support line. Labs Labs: Laboratory Results - last 24 hr 08/21/23 08/26/23 08/26/23 11:59 17:07 18:08 Sodium Potassium Chloride Carbon Dioxide Anion Gap BUN Creatinine Estim Creat Clear Calc Estimated GFR Glucose POC Capillary Glucose 128 H Calcium Ur Random Creatinine 70 U Random Total Protein 1017 H Protein/Creatinin Ratio 19483 H Hep B Core IgM Ab Negative 08/27/23 08/27/23 08/27/23 00:11 06:03 06:05 Sodium 133 L Potassium 4.5 Chloride 99 Carbon Dioxide 24 Anion Gap 10 BUN 38 H Creatinine 10.80 H Estim Creat Clear Calc 6 Estimated GFR 5 L Glucose 100 POC Capillary Glucose 109 H 105 Calcium 8.7 Ur Random Creatinine U Random Total Protein Protein/Creatinin Ratio Hep B Core IgM Ab 08/27/23 11:26 Sodium Potassium Chloride Carbon Dioxide Anion Gap BUN Creatinine Estim Creat Clear Calc Estimated GFR Glucose POC Capillary Glucose 105 Calcium Ur Random Creatinine U Random Total Protein Protein/Creatinin Ratio Hep B Core IgM Ab
[2023-08-27] MEDS: hydrALAZINE HCL 25 MG TABLET 50 MG PO ×2 (12:58→16:43)
[2023-08-27 14:21] LABS: INR 1.1; Prothrombin Time 15.3 Seconds (11.1-14.7)
[2023-08-27 16:55] LABS: Glucose Point of Care 107 mg/dl (65-105)
[2023-08-27] MEDS: ONDANSETRON INJ 4 MG/2 ML VIAL IV PUSH (19:45)
[2023-08-27 20:31] LABS: Glucose Point of Care 140 mg/dl (65-105)
[2023-08-27] MEDS: METOPROLOL TARTRATE 25 MG TABLET PO (20:53)
[2023-08-28] VITALS (30 sets, daily range): BP systolic 148–174; BP diastolic 80–98; PULSE 78–108; RESP 14–22; TEMP 36.3–37.4; O2SAT 92–97
[2023-08-28 04:52] LABS: Hematocrit 23.2 % (42.0-52.0); Hemoglobin 7.5 g/dL (14.0-18.0); Mean Corpuscular HGB Conc 32.3 g/dl (32-36); Mean Corpuscular Hemoglobin 30.5 pg (26-34); Mean Corpuscular Volume 94.3 fl (80-100); Mean Platelet Volume 9.9 fl (7.4-10.4); Platelet Count Result 251 k/mm3 (150-375); Red Blood Count 2.46 M/mm3 (4.6-6.20); Red Cell Distribution Width 17.5 % (11.5-14.5); White Blood Count 5.9 K/mm3 (4.5-10.0)
[2023-08-28] MEDS: HYDROcodone/acetaminophen (*CRX) 5-325 MG TABLET 1 TAB PO ×2 (05:11→20:04)
[2023-08-28] MEDS: CENTRAL LINE FLUSH 10 ML IV PUSH (05:12)
[2023-08-28 05:30] LABS: Vancomycin Random 13.8 ug/mL (10-20)
[2023-08-28 05:31] LABS: Anion Gap 6 mmol/L (4-12); Blood Urea Nitrogen 22 mg/dL (9-20); Calcium 9.1 mg/dL (8.4-10.2); Carbon Dioxide 27 mmol/L (22-30); Chloride 104 mmol/L (98-107); Estimated CRCL calculation 9 ml/min; Estimated Glomerular Filt Rate 7; Glucose 100 mg/dL (65-110); Lipase 189 U/L (23-300); Phosphorus 3.5 mg/dL (2.5-4.5); Potassium 4.4 mmol/L (3.4-5.0); Sodium 137 mmol/L (137-145)
[2023-08-28 07:38] LABS: Hepatitis B Core Ab Total NON-REACTIVE (NON-REACTIVE)
[2023-08-28] MEDS: METOPROLOL TARTRATE 25 MG TABLET PO ×2 (08:30→20:04)
[2023-08-28] MEDS: amLODIPine BESYLATE 5 MG TABLET 10 MG PO (08:30)
[2023-08-28] MEDS: ACETAMINOPHEN 325 MG TABLET 650 MG PO (08:37)
[2023-08-28 08:41] LABS: Glucose Point of Care 91 mg/dl (65-105)
--- NOTE | 2023-08-28 11:10 | P.PNNP_ITS ---
Progress Note: A&P Assessment and Plan (1) SANG (acute kidney injury): Code(s): N17.9 - Acute kidney failure, unspecified Status: Acute Assessment and Plan: * due to biopsy proven acute tubular necrosis * RENAL BIOPSY (08/26/23): acute tubular injury and diabetic glomerulopathy, class IIa * presumably normal renal function at baseline * creatinine on admission 16.5mg/dl associated with hyperkalemia and metabolic acidosis * evaluation to date: * CT of abd/pelvis - kidneys unremarkable * CPK okay * urine electrolytes non-prerenal * urine eosinophils negative * proteinuria noted * negative serologies noted * minimal urine output noted since admission * admission confusion/AMS related to uremia (given improvement following [employer]/dialysis) * ATN likely due to multifactorial etiology: * secondary to antibiotics (?) - high vancomycin level noted * ongoing use of metformin + ARB + HCTZ prior to admission * pancreatitis * nausea/vomiting/diarrhea * prerenal factors * HD today and likely again tomorrow * outpatient dialysis arrangements noted * follow trend of labs and UOP for renal recovery (2) Acute hyperkalemia: Code(s): E87.5 - Hyperkalemia Status: Acute Assessment and Plan: * resolved * improvement with medical management * dialysis has also helped maintain stability * follow trend of potassium levels (3) Metabolic acidosis: Code(s): E87.20 - Acidosis, unspecified Status: Acute Assessment and Plan: * corrected * due to a few issues: * from SANG/ARF (and inability to clear uremic toxins) * lactic acidosis (complicated by metformin use prior to admission) * possible infection (known hx of osteomyelitis and missed antibiotic doses...) * admission ABG noted * dialysis should help compensate * follow trend of CO2 (4) Acute pancreatitis: Qualifiers: Acute pancreatitis complication: unspecified Pancreatitis type: unspecified pancreatitis type Qualified Code(s): K85.90 - Acute pancreatitis without necrosis or infection, unspecified Code(s): K85.90 - Acute pancreatitis without necrosis or infection, unspecified Status: Acute Assessment and Plan: * improving * noted by history of abdominal pain, nausea, vomiting and diarrhea in association with elevated lipase * trending lipase levels * confirmed by CT scan -- no mention of gallbladder disease or gallstones * RUQ ultrasound and triglycerides okay * tolerating oral intake * pain control (5) Altered mental status: Code(s): R41.82 - Altered mental status, unspecified Status: Acute Assessment and Plan: * improved if not back to baseline * noted on admission * however, awake and alert for the most part but difficult noted providing history that led to admission * CT of brain negative * highly suspect related to uremic encephalopathy and SANG/ARF given improvement with dialytic intervention * follow mental status (6) Anemia: Code(s): D64.9 - Anemia, unspecified Status: Acute Assessment and Plan: * presumably due to acute illness and SANG/ARF * on Epogen with HD * follow trend of H/H (7) Essential hypertension: Code(s): I10 - Essential (primary) hypertension Status: Acute Assessment and Plan: * running high at this time * holding ARB and HCTZ given #1 * on oral hydralazine * change amlodipine to nifedipine * follow trend of hemodynamics (8) Alcoholism: Code(s): F10.20 - Alcohol dependence, uncomplicated Status: Acute Assessment and Plan: * known long standing history * on thiamine and folate * no evidence of withdrawal (9) Hx of osteomyelitis: Code(s): Z87.39 - Personal history of other diseases of the musculoskeletal system and connective tissue Status: Acute Assessment and Plan: * reported history from Jun 2023 hospitalization * had been on outpatient IV antibiotics since that time * antibiotics to blame for #1 (?) * repeat culture data noted * follow vancomycin levels (10) Diabetes mellitus: Code(s): E11.9 - Type 2 diabetes mellitus without complications Status: Acute Assessment and Plan: * follow accu-cheks * glycemic control per hospitalists Not opposed to discharge tomorrow after dialysis if otherwise medically stable and outpatient dialysis unit/schedule is finalized. Will continue to follow. Subjective Date/time seen: 08/28/23 11:10 Interval history: Follow-up for acute kidney injury/acute renal failure. Tolerating dialysis treatment at the time of my visit (seen on HD at 11:00AM); tolerated dialysis treatment yesterday as well; overall, feels reasonably well; no apparent distress noted; abdominal pain slowly improving; still not making much urine; discussed results of renal biopsy (see below). Exam Narrative: General: WD/WN male in NAD Heart: normal S1 and S2; no rub Lungs: clear anteriorly Abdomen: soft, mild TTP, positive bowel sounds Extremities: no cyanosis or clubbing; no edema Skin: no nodules Objective Data Vital Signs Vital Signs: Vital Signs Temp Pulse Resp BP Pulse Ox O2 Del Method O2 Flow Rate 08/28/23 11:00 91 171/98 H 08/28/23 10:45 90 165/95 H 08/28/23 10:30 87 174/95 H 08/28/23 10:00 81 168/94 H 08/28/23 09:45 80 165/93 H 08/28/23 09:26 0 08/28/23 10:16 83 174/94 H 08/28/23 09:34 78 168/92 H 08/28/23 08:30 82 08/28/23 04:53 98.4 F 86 20 154/80 H 95 08/27/23 20:05 98.2 F 111 H 18 150/88 H 97 08/27/23 20:00 Room Air 08/27/23 20:53 111 H 08/27/23 13:57 98.3 F 106 H 16 149/82 H 95 Intake/Output Intake/Output: Intake & Output 08/25/23 08/26/23 08/27/23 08/28/23 23:59 23:59 23:59 23:59 Intake Total 790 540 960 200 Output Total 337 564 0403 0 Balance 590 440 -1200 200 Meds/Results Medications: Active Medications Generic Name Dose Route Start Last Admin Trade Name Freq PRN Reason Stop Dose Admin Acetaminophen 650 mg 08/24/23 14:06 08/28/23 08:37 Acetaminophen 325 Mg Tablet PO 650 mg Q6H PRN Administration Pain Rated 5 or Less Hydrocodone Bitart/Acetaminophen 1 tab 08/22/23 17:28 08/28/23 05:11 Hydrocodone/Acetaminophen (*Crx) 5-325 Mg Tablet PO 1 tab Q6H PRN Administration Pain Rated 6 or Greater Amlodipine Besylate 10 mg 08/25/23 09:00 08/28/23 08:30 Amlodipine Besylate 5 Mg Tablet PO 10 mg QAM ANUJA Administration Dextrose 12.5 gm 08/20/23 02:25 Dextrose 50% 25 Gm/50 Ml Syringe IV PUSH PRN PRN Hypoglycemia Protocol Epoetin Toñito 20,000 units 08/28/23 20:00 08/28/23 12:18 Epoetin Toñito 20,000 Units/Ml Vial IV PUSH 08/28/23 20:01 20,000 units ONCE ONE Administration Folic Acid 1 mg 08/24/23 09:00 08/28/23 08:15 Folic Acid 1 Mg Tablet PO Not Given DAILY ANUJA Glucagon 1 mg 08/20/23 02:25 Glucagon For Inj 1 Mg Vial IM PRN PRN Hypoglycemia Protocol Glucose 15 gm 08/20/23 02:25 Glucose Oral Gel 15 Gm Of Glucse In 37.5 Gm Tube PO PRN PRN Hypoglycemia Protocol Hydralazine HCl 10 mg 08/20/23 11:02 08/26/23 09:51 Hydralazine Hcl 20 Mg/Ml Vial IV PUSH 10 mg Q8H PRN Administration Blood Pressure - High Hydralazine HCl 50 mg 08/25/23 12:00 08/28/23 11:04 Hydralazine Hcl 25 Mg Tablet PO Not Given TIDWM ANUJA Dextrose 1,000 mls @ 100 mls/hr 08/20/23 02:25 Dextrose 5% 1,000 Ml IVPB PRN PRN Hypoglycemia Protocol Albumin Human 50 mls @ 999 mls/hr 08/21/23 11:04 Albutein IVPB 09/20/23 11:03 Q10M PRN HYPOTENSION Insulin Aspart 2 - 5 units 08/27/23 17:00 08/28/23 12:43 Insulin Aspart (*Bkc) 100 Units/Ml SUB-Q Not Given TIDWM ANUJA Protocol Metoprolol Tartrate 25 mg 08/27/23 21:00 08/28/23 08:30 Metoprolol Tartrate 25 Mg Tablet PO 25 mg Q12HR ANUJA Administration Ondansetron HCl 4 mg 08/20/23 02:20 08/27/23 19:45 Ondansetron Inj 4 Mg/2 Ml Vial IV PUSH 4 mg Q4H PRN Administration Nausea Pantoprazole Sodium 40 mg 08/23/23 09:00 08/28/23 08:15 Pantoprazole 40 Mg Tablet PO Not Given QAM ANUJA Rosuvastatin Calcium 20 mg 08/24/23 09:00 08/28/23 08:15 Rosuvastatin 20 Mg Tablet PO Not Given DAILY ANUJA Sodium Chloride 20 ml 08/19/23 21:40 Central Line Flush IV PUSH PRN PRN after blood draws Sodium Chloride 10 ml 08/19/23 21:40 Central Line Flush IV PUSH PRN PRN with TPN bag changes Sodium Chloride 10 ml 08/19/23 22:00 08/28/23 05:12 Central Line Flush IV PUSH 10 ml Q8HR ANUJA Administration Sodium Chloride 10 ml 08/21/23 14:00 08/28/23 05:12 Central Line Flush IV PUSH Not Given Q8HR ANUJA Sodium Chloride 20 ml 08/21/23 10:22 08/23/23 03:51 Central Line Flush IV PUSH 20 ml PRN PRN Administration after blood draws Thiamine HCl 100 mg 08/24/23 09:00 08/28/23 08:15 Thiamine Hcl 100 Mg Tablet PO Not Given QAM ANUJA Radiology Results: ITS Impressions Abdomen/Pelvis CT 08/19/23 22:34 IMPRESSION: 1. Acute pancreatitis. 2: Severe degenerative changes at L4-5 and L5-S1 with deformity of the endplates at L4-5. Consider discitis/osteomyelitis in the appropriate clinical setting. If there is concern for discitis, further evaluation with MRI lumbar spine without and with contrast recommended. Head CT 08/20/23 05:43 Impression: No significant abnormality seen. Upper Quadrant Ultrasound 08/20/23 18:10 IMPRESSION: 1: Mild intrahepatic biliary dilatation. Abdomen X-Ray 08/22/23 19:52 IMPRESSION: 1. Normal bowel gas pattern. Renal Biopsy Ultrasound 08/26/23 11:59 IMPRESSION: 1. Ultrasound-guided random left kidney core needle biopsy. Chest X-Ray 08/27/23 07:09 Impression: Worsening [id number]-[id number] bibasilar pulmonary edema with increasing small bilateral pleural effusions. Stable support line. Labs Labs: Laboratory Tests 08/28/23 04:42 08/28/23 04:42 Calcium 9.1 Phosphorus 3.5 Albumin 3.0 L Lipase 189 Random Vancomycin 13.8 AMG Follow-up Billing Additional Procedures Additional Procedure: [id number] Hemodialysis
--- NOTE | 2023-08-28 11:40 | PM.PNGS ---
Progress Note: A&P Assessment and Plan (1) SANG (acute kidney injury): Code(s): N17.9 - Acute kidney failure, unspecified Status: Acute Assessment and Plan: Patient will be needing continued hemodialysis once discharged. I have recommended removal of Miles dialysis catheter and placement of tunneled dialysis catheter under IV sedation. Procedure, risks, benefits and alternatives were discussed. Questions answered. Subjective Subjective Date/Time Seen: 08/28/23 11:40 Interval history: Patient has been undergoing hemodialysis through a right internal jugular temporary dialysis catheter. He is in need of tunneled dialysis catheter to continue hemodialysis as an outpatient. Exam Skin: Other: Right internal jugular temporary dialysis catheter in place. No devices on the left. Objective Data Vital Signs Vital Signs: Vital Signs - 24 hr 08/27/23 11:45 08/27/23 12:00 08/27/23 12:15 Temperature Pulse Rate 99 101 H 102 H Respiratory Rate Blood Pressure 156/86 H 164/89 H 166/85 H Pulse Oximetry Oxygen Delivery Oxygen Flow Rate Fraction of Inspired Oxygen 08/27/23 12:30 08/27/23 12:43 08/27/23 13:57 Temperature 37.0 C 36.8 C Pulse Rate 102 H 104 H 106 H Respiratory Rate 18 16 Blood Pressure 162/89 H 164/84 H 149/82 H Pulse Oximetry 95 Oxygen Delivery Oxygen Flow Rate Fraction of Inspired Oxygen 08/27/23 20:53 08/27/23 20:00 08/27/23 20:05 Temperature 36.8 C Pulse Rate 111 H 111 H Respiratory Rate 18 Blood Pressure 150/88 H Pulse Oximetry 97 Oxygen Delivery Room Air Oxygen Flow Rate Fraction of Inspired Oxygen 08/28/23 04:53 08/28/23 08:30 08/28/23 09:34 Temperature 36.9 C Pulse Rate 86 82 78 Respiratory Rate 20 Blood Pressure 154/80 H 168/92 H Pulse Oximetry 95 Oxygen Delivery Oxygen Flow Rate Fraction of Inspired Oxygen 08/28/23 10:16 08/28/23 09:26 08/28/23 09:45 Temperature Pulse Rate 83 80 Respiratory Rate Blood Pressure 174/94 H 165/93 H Pulse Oximetry Oxygen Delivery Oxygen Flow Rate 0 Fraction of Inspired Oxygen 0 08/28/23 10:00 08/28/23 10:30 08/28/23 10:45 Temperature Pulse Rate 81 87 90 Respiratory Rate Blood Pressure 168/94 H 174/95 H 165/95 H Pulse Oximetry Oxygen Delivery Oxygen Flow Rate Fraction of Inspired Oxygen 08/28/23 11:00 08/28/23 11:16 Temperature Pulse Rate 91 91 Respiratory Rate Blood Pressure 171/98 H 158/88 H Pulse Oximetry Oxygen Delivery Oxygen Flow Rate Fraction of Inspired Oxygen Intake/Output Intake/Output: Intake & Output 08/25/23 08/26/23 08/27/23 08/28/23 23:59 23:59 23:59 23:59 Intake Total 790 540 960 200 Output Total 535 874 8132 0 Balance 590 440 -1200 200 Meds/Results Medications: Active Medications Generic Name Dose Route Start Last Admin Trade Name Freq PRN Reason Stop Dose Admin Acetaminophen 650 mg 08/24/23 14:06 08/28/23 08:37 Acetaminophen 325 Mg Tablet PO 650 mg Q6H PRN Administration Pain Rated 5 or Less Hydrocodone Bitart/Acetaminophen 1 tab 08/22/23 17:28 08/28/23 05:11 Hydrocodone/Acetaminophen (*Crx) 5-325 Mg Tablet PO 1 tab Q6H PRN Administration Pain Rated 6 or Greater Amlodipine Besylate 10 mg 08/25/23 09:00 08/28/23 08:30 Amlodipine Besylate 5 Mg Tablet PO 10 mg QAM ANUJA Administration Dextrose 12.5 gm 08/20/23 02:25 Dextrose 50% 25 Gm/50 Ml Syringe IV PUSH PRN PRN Hypoglycemia Protocol Epoetin Toñito 20,000 units 08/28/23 20:00 Epoetin Toñito 20,000 Units/Ml Vial IV PUSH 08/28/23 20:01 ONCE ONE Folic Acid 1 mg 08/24/23 09:00 08/28/23 08:15 Folic Acid 1 Mg Tablet PO Not Given DAILY ANUJA Glucagon 1 mg 08/20/23 02:25 Glucagon For Inj 1 Mg Vial IM PRN PRN Hypoglycemia Protocol Glucose 15 gm 08/20/23 02:25 Glucose Oral Gel 15 Gm Of Glucse In 37.5 Gm Tube PO PRN PRN Hypoglycemia Protocol Hydralazine HCl 10 mg 08/20/23 11:02 08/26/23 09:51 Hydralazine Hcl 20 Mg/Ml Vial IV PUSH 10 mg Q8H PRN Administration Blood Pressure - High Hydralazine HCl 50 mg 08/25/23 12:00 08/28/23 11:04 Hydralazine Hcl 25 Mg Tablet PO Not Given TIDWM ANUJA Dextrose 1,000 mls @ 100 mls/hr 08/20/23 02:25 Dextrose 5% 1,000 Ml IVPB PRN PRN Hypoglycemia Protocol Albumin Human 50 mls @ 999 mls/hr 08/21/23 11:04 Albutein IVPB 09/20/23 11:03 Q10M PRN HYPOTENSION Insulin Aspart 2 - 5 units 08/27/23 17:00 08/28/23 08:07 Insulin Aspart (*Bkc) 100 Units/Ml SUB-Q Not Given TIDWM ANUJA Protocol Metoprolol Tartrate 25 mg 08/27/23 21:00 08/28/23 08:30 Metoprolol Tartrate 25 Mg Tablet PO 25 mg Q12HR ANUJA Administration Ondansetron HCl 4 mg 08/20/23 02:20 08/27/23 19:45 Ondansetron Inj 4 Mg/2 Ml Vial IV PUSH 4 mg Q4H PRN Administration Nausea Pantoprazole Sodium 40 mg 08/23/23 09:00 08/28/23 08:15 Pantoprazole 40 Mg Tablet PO Not Given QAM [facility] Rosuvastatin Calcium 20 mg 08/24/23 09:00 08/28/23 08:15 Rosuvastatin 20 Mg Tablet PO Not Given DAILY [facility] Sodium Chloride 20 ml 08/19/23 21:40 Central Line Flush IV PUSH PRN PRN after blood draws Sodium Chloride 10 ml 08/19/23 21:40 Central Line Flush IV PUSH PRN PRN with TPN bag changes Sodium Chloride 10 ml 08/19/23 22:00 08/28/23 05:12 Central Line Flush IV PUSH 10 ml Q8HR ANUJA Administration Sodium Chloride 10 ml 08/21/23 14:00 08/28/23 05:12 Central Line Flush IV PUSH Not Given Q8HR ANUJA Sodium Chloride 20 ml 08/21/23 10:22 08/23/23 03:51 Central Line Flush IV PUSH 20 ml PRN PRN Administration after blood draws Thiamine HCl 100 mg 08/24/23 09:00 08/28/23 08:15 Thiamine Hcl 100 Mg Tablet PO Not Given QAM [facility] Radiology Results: ITS Impressions Abdomen/Pelvis CT 08/19/23 22:34 IMPRESSION: 1. Acute pancreatitis. 2: Severe degenerative changes at L4-5 and L5-S1 with deformity of the endplates at L4-5. Consider discitis/osteomyelitis in the appropriate clinical setting. If there is concern for discitis, further evaluation with MRI lumbar spine without and with contrast recommended. Head CT 08/20/23 05:43 Impression: No significant abnormality seen. Upper Quadrant Ultrasound 08/20/23 18:10 IMPRESSION: 1: Mild intrahepatic biliary dilatation. Abdomen X-Ray 08/22/23 19:52 IMPRESSION: 1. Normal bowel gas pattern. Renal Biopsy Ultrasound 08/26/23 11:59 IMPRESSION: 1. Ultrasound-guided random left kidney core needle biopsy. Chest X-Ray 08/27/23 07:09 Impression: Worsening [id number] bibasilar pulmonary edema with increasing small bilateral pleural effusions. Stable support line. Labs Labs: Laboratory Results - last 24 hr 08/22/23 08/26/23 08/27/23 04:40 17:07 13:41 WBC RBC Hgb Hct MCV MCH MCHC RDW Plt Count MPV PT 15.3 H INR 1.1 Sodium Potassium Chloride Carbon Dioxide Anion Gap BUN Creatinine Estim Creat Clear Calc Estimated GFR Glucose POC Capillary Glucose Calcium Phosphorus Albumin Abnorm Protein Band 1 Not Reportable Abnorm Protein Band 3 Not Reportable Lipase Random Vancomycin Hep B Core Total Ab Non-reactive 08/27/23 08/27/23 08/28/23 16:52 20:19 04:42 WBC 5.9 RBC 2.46 L Hgb 7.5 L Hct 23.2 L MCV 94.3 MCH 30.5 MCHC 32.3 RDW 17.5 H Plt Count 251 MPV 9.9 PT INR Sodium 137 Potassium 4.4 Chloride 104 Carbon Dioxide 27 Anion Gap 6 BUN 22 H D Creatinine 7.70 H Estim Creat Clear Calc 9 Estimated GFR 7 L Glucose 100 POC Capillary Glucose 107 H 140 H Calcium 9.1 Phosphorus 3.5 Albumin 3.0 L Abnorm Protein Band 1 Abnorm Protein Band 3 Lipase 189 Random Vancomycin 13.8 Hep B Core Total Ab 08/28/23 07:59 WBC RBC Hgb Hct MCV MCH MCHC RDW Plt Count MPV PT INR Sodium Potassium Chloride Carbon Dioxide Anion Gap BUN Creatinine Estim Creat Clear Calc Estimated GFR Glucose POC Capillary Glucose 91 Calcium Phosphorus Albumin Abnorm Protein Band 1 Abnorm Protein Band 3 Lipase Random Vancomycin Hep B Core Total Ab
--- NOTE | 2023-08-28 11:43 | WPDHPUPDATE1 ---
History and Physical Update Update Date/Time: 08/28/23 11:43 History and Physical has been reviewed, including an updated exam of the patient. There are NO changes in the patient's condition. Risks, benefits, and alternatives have been discussed and questions answered. Patient agrees to proceed with procedure.
[2023-08-28] MEDS: EPOETIN ALFA 20,000 UNITS/ML VIAL 20000 UNITS IV PUSH (12:18)
--- NOTE | 2023-08-28 12:38 | PM.IMPN ---
Progress Note: A&P Assessment and Plan (1) Acute renal failure: Qualifiers: Acute renal failure type: unspecified Qualified Code(s): N17.9 - Acute kidney failure, unspecified Code(s): N17.9 - Acute kidney failure, unspecified Status: Acute Assessment and Plan: Patient presumably has no underlying kidney problems. Creatinine was 5.7 few days prior to admission on routine labs. Creatinine here was 16.5 with a BUN of 90. He had hyperkalemia and severe metabolic gap acidosis. CXR clear. Patient was started on a bicarb drip and potassium was treated appropriately. Potassium normal and metabolic acidosis better. Renal function was unchanged and urine output essentially anuric. Etiology unclear but Vanco random level elevated at 43. Total CK was normal. Suspect related to dehydration, medications, vanco toxicity and possibly underlying renal disease (DM, HTN?) Nephrology was consulted and appreciate their input. Patient was informed he will need HD and he agreed so a HD catheter placed on 08/20 HD 08/20, 08/21 and 08/23. He feels much better overall Pt to have tunneled HD catheter today and dialysis tomorrow manager animation working on setting up outpatient HD in [place] Monitor urine output, renal function and electrolytes. Hopeful dc on Thursday (2) Acute pancreatitis: Qualifiers: Acute pancreatitis complication: unspecified Pancreatitis type: unspecified pancreatitis type Qualified Code(s): K85.90 - Acute pancreatitis without necrosis or infection, unspecified Code(s): K85.90 - Acute pancreatitis without necrosis or infection, unspecified Status: Acute Assessment and Plan: Patient presents with abdominal pain, nausea, vomiting and diarrhea. Lipase was elevated on admission and climbed to 12.3K CT shows pancreatitis but does not mention gallbladder disease or cholelithiasis. RUQ US showing mild intrahepatic biliary dilation but no GS. LFTs normal. TG normal. Most likely related to his alcoholism Bloating but KUB showing nml bowel gas pattern Lipase better. Abd exam much better but has these episodes of abd pain with dry heaves. Requiring [place] 3x/day regularly. Follow for now Continue low fat diet. Continue supplements (3) Acute hyperkalemia: Code(s): E87.5 - Hyperkalemia Status: Acute Assessment and Plan: Patient presented with abdominal pain and found to have acute kidney injury and hyperkalemia at 6.5. SANG most likely the etiology of his hyperkalemia. Potassium was treated appropriately. Potassium normal now Dialysis to control electrolyte abnormalities. (4) Metabolic acidosis: Code(s): E87.20 - Acidosis, unspecified Status: Acute Assessment and Plan: Patient with severe metabolic gap acidosis. This was noted in the outpatient setting as well. Most likely related to his severe renal disease and lactic acidosis Treated witn IV fluids with bicarb. Control electrolytes with dialysis. (5) Lactic acidosis: Code(s): E87.20 - Acidosis, unspecified Status: Acute Assessment and Plan: Patient with severe lactic acidosis to 5.4 likely related to above. Blood cultures collected given that he has PICC line in place and has been missing doses of his antibiotics BCx NGTD Also related to metformin which is held. (6) Alcoholism: Code(s): F10.20 - Alcohol dependence, uncomplicated Status: Acute Assessment and Plan: Patient with history of longstanding alcoholism. LFTs normal. Liver appears normal by CT. INR 1.2 and protein level normal to suggest good intrinsic function. Started thiamine and folate. CIWA protocol has been stopped Librium and Ativan prn were available but now stopped (7) Altered mental status: Code(s): R41.82 - Altered mental status, unspecified Status: Acute Assessment and Plan: Patient was mildly obtunded but awake and mostly oriented on admission and had difficulty providing a detailed history CT the brain showing no acute findings. Suspect this is related to uremia and metabolic acidosis. Clinically improved after having HD. Continue to follow (8) Diabetes mellitus: Code(s): E11.9 - Type 2 diabetes mellitus without complications Status: Acute Assessment and Plan: Patient with history of diabetes. A1c 5.3. Continue sliding scale protocol with hypoglycemia protocol. (9) Essential hypertension: Code(s): I10 - Essential (primary) hypertension Status: Acute Assessment and Plan: Patient with essential hypertension. Patient's blood pressure was reviewed on 08/24 Blood pressure still poorly controlled Holding losartan and HCTZ. Norvasc advanced again and hydralazine added Continue to follow. Hydralazine available p.r.n. (10) Hx of osteomyelitis: Code(s): Z87.39 - Personal history of other diseases of the musculoskeletal system and connective tissue Status: Acute Assessment and Plan: Patient with a history of lumbar spine osteomyelitis. This may have been related to his lumbar surgery in March. He has been on IV antibiotics since June. CT scan showing severe degenerative changes at L4-5 and L5-S1 with deformity of the endplates at L4-5. Consider discitis/osteomyelitis in the appropriate clinical setting. Given the concern that his abx may be contributing to his renal failure, IV antibiotics stopped at this time Vanco level was very high and remained elevated BCx NGTD PICC line removed. Consider MRI of lumbar spine if symptomatic but will have patient follo-up with his ID physician in [place]. Subjective Date/time seen: 08/28/23 12:38 Interval history: 57yo male with alcoholism, HTN, DM and currently undergoing treatment for osteomyelitis who presents with abdominal pain. 08/26/2023 Sp biopsy and Sp dialysis 08/27/2023 Case manage setting up for dialysis in [facility] Pt lives there but travel all over [facility] for work Livia Hickey 08/28/2023 Creat is 7 today Pt having dialysis Pt to have tunnelled hemodialysis catheter to be placed today Hb is low epogen ordered Pt to have dialysis tomorrow Thursday, hopeful dc on thursday Pt has dialysis set up in [place] where he lives Advised compliance to medications and dialysis Review of Systems Review of Systems: Pleasant nature, no specific complaints Exam Narrative: General; younger male seen in [facility] Neck - right IJ HD catheter in place Chest - CTA bilaterally, nml RR CV - RRR S1/S2 Abd - Soft, NT/ND, +BS Ext - No pedal edema Psych - Nml mood Skin - Warm and dry Objective Data Vital Signs Vital Signs: Vital Signs - 24 hr 08/27/23 12:43 08/27/23 13:57 08/27/23 20:53 Temperature 37.0 C 36.8 C Pulse Rate 104 H 106 H 111 H Respiratory Rate 18 16 Blood Pressure 164/84 H 149/82 H Pulse Oximetry 95 Oxygen Delivery Oxygen Flow Rate Fraction of Inspired Oxygen 08/27/23 20:00 08/27/23 20:05 08/28/23 04:53 Temperature 36.8 C 36.9 C Pulse Rate 111 H 86 Respiratory Rate 18 20 Blood Pressure 150/88 H 154/80 H Pulse Oximetry 97 95 Oxygen Delivery Room Air Oxygen Flow Rate Fraction of Inspired Oxygen 08/28/23 08:30 08/28/23 09:34 08/28/23 10:16 Temperature Pulse Rate 82 78 83 Respiratory Rate Blood Pressure 168/92 H 174/94 H Pulse Oximetry Oxygen Delivery Oxygen Flow Rate Fraction of Inspired Oxygen 08/28/23 09:26 08/28/23 09:45 08/28/23 10:00 Temperature Pulse Rate 80 81 Respiratory Rate Blood Pressure 165/93 H 168/94 H Pulse Oximetry Oxygen Delivery Oxygen Flow Rate 0 Fraction of Inspired Oxygen 0 08/28/23 10:30 08/28/23 10:45 08/28/23 11:00 Temperature Pulse Rate 87 90 91 Respiratory Rate Blood Pressure 174/95 H 165/95 H 171/98 H Pulse Oximetry Oxygen Delivery Oxygen Flow Rate Fraction of Inspired Oxygen 08/28/23 11:16 08/28/23 09:26 08/28/23 11:30 Temperature 36.7 C Pulse Rate 91 78 91 Respiratory Rate 21 H Blood Pressure 158/88 H 162/97 H 158/88 H Pulse Oximetry 95 Oxygen Delivery Oxygen Flow Rate Fraction of Inspired Oxygen 08/28/23 11:45 Temperature Pulse Rate 94 Respiratory Rate Blood Pressure 160/89 H Pulse Oximetry Oxygen Delivery Oxygen Flow Rate Fraction of Inspired Oxygen Intake/Output Intake/Output: Intake & Output 08/25/23 08/26/23 08/27/23 08/28/23 23:59 23:59 23:59 23:59 Intake Total 790 540 960 200 Output Total 531 424 9892 0 Balance 590 440 -1200 200 Meds/Results Medications: Active Medications Generic Name Dose Route Start Last Admin Trade Name Freq PRN Reason Stop Dose Admin Acetaminophen 650 mg 08/24/23 14:06 08/28/23 08:37 Acetaminophen 325 Mg Tablet PO 650 mg Q6H PRN Administration Pain Rated 5 or Less Hydrocodone Bitart/Acetaminophen 1 tab 08/22/23 17:28 08/28/23 05:11 Hydrocodone/Acetaminophen (*Crx) 5-325 Mg Tablet PO 1 tab Q6H PRN Administration Pain Rated 6 or Greater Amlodipine Besylate 10 mg 08/25/23 09:00 08/28/23 08:30 Amlodipine Besylate 5 Mg Tablet PO 10 mg QAM ANUJA Administration Dextrose 12.5 gm 08/20/23 02:25 Dextrose 50% 25 Gm/50 Ml Syringe IV PUSH PRN PRN Hypoglycemia Protocol Epoetin Toñito 20,000 units 08/28/23 20:00 08/28/23 12:18 Epoetin Toñito 20,000 Units/Ml Vial IV PUSH 08/28/23 20:01 20,000 units ONCE ONE Administration Epoetin Toñito 20,000 units 08/28/23 12:37 Epoetin Toñito 20,000 Units/Ml Vial SUB-Q 08/28/23 12:38 ONCE ONE Folic Acid 1 mg 08/24/23 09:00 08/28/23 08:15 Folic Acid 1 Mg Tablet PO Not Given DAILY ANUJA Glucagon 1 mg 08/20/23 02:25 Glucagon For Inj 1 Mg Vial IM PRN PRN Hypoglycemia Protocol Glucose 15 gm 08/20/23 02:25 Glucose Oral Gel 15 Gm Of Glucse In 37.5 Gm Tube PO PRN PRN Hypoglycemia Protocol Hydralazine HCl 10 mg 08/20/23 11:02 08/26/23 09:51 Hydralazine Hcl 20 Mg/Ml Vial IV PUSH 10 mg Q8H PRN Administration Blood Pressure - High Hydralazine HCl 50 mg 08/25/23 12:00 08/28/23 11:04 Hydralazine Hcl 25 Mg Tablet PO Not Given TIDWM ANUJA Dextrose 1,000 mls @ 100 mls/hr 08/20/23 02:25 Dextrose 5% 1,000 Ml IVPB PRN PRN Hypoglycemia Protocol Albumin Human 50 mls @ 999 mls/hr 08/21/23 11:04 Albutein IVPB 09/20/23 11:03 Q10M PRN HYPOTENSION Insulin Aspart 2 - 5 units 08/27/23 17:00 08/28/23 08:07 Insulin Aspart (*Bkc) 100 Units/Ml SUB-Q Not Given TIDWM ANUJA Protocol Metoprolol Tartrate 25 mg 08/27/23 21:00 08/28/23 08:30 Metoprolol Tartrate 25 Mg Tablet PO 25 mg Q12HR ANUJA Administration Ondansetron HCl 4 mg 08/20/23 02:20 08/27/23 19:45 Ondansetron Inj 4 Mg/2 Ml Vial IV PUSH 4 mg Q4H PRN Administration Nausea Pantoprazole Sodium 40 mg 08/23/23 09:00 08/28/23 08:15 Pantoprazole 40 Mg Tablet PO Not Given QAM ANUJA Rosuvastatin Calcium 20 mg 08/24/23 09:00 08/28/23 08:15 Rosuvastatin 20 Mg Tablet PO Not Given DAILY ANUJA Sodium Chloride 20 ml 08/19/23 21:40 Central Line Flush IV PUSH PRN PRN after blood draws Sodium Chloride 10 ml 08/19/23 21:40 Central Line Flush IV PUSH PRN PRN with TPN bag changes Sodium Chloride 10 ml 08/19/23 22:00 08/28/23 05:12 Central Line Flush IV PUSH 10 ml Q8HR ANUJA Administration Sodium Chloride 10 ml 08/21/23 14:00 08/28/23 05:12 Central Line Flush IV PUSH Not Given Q8HR ANUJA Sodium Chloride 20 ml 08/21/23 10:22 08/23/23 03:51 Central Line Flush IV PUSH 20 ml PRN PRN Administration after blood draws Thiamine HCl 100 mg 08/24/23 09:00 08/28/23 08:15 Thiamine Hcl 100 Mg Tablet PO Not Given QAM ANUJA Radiology Results: ITS Impressions Abdomen/Pelvis CT 08/19/23 22:34 IMPRESSION: 1. Acute pancreatitis. 2: Severe degenerative changes at L4-5 and L5-S1 with deformity of the endplates at L4-5. Consider discitis/osteomyelitis in the appropriate clinical setting. If there is concern for discitis, further evaluation with MRI lumbar spine without and with contrast recommended. Head CT 08/20/23 05:43 Impression: No significant abnormality seen. Upper Quadrant Ultrasound 08/20/23 18:10 IMPRESSION: 1: Mild intrahepatic biliary dilatation. Abdomen X-Ray 08/22/23 19:52 IMPRESSION: 1. Normal bowel gas pattern. Renal Biopsy Ultrasound 08/26/23 11:59 IMPRESSION: 1. Ultrasound-guided random left kidney core needle biopsy. Chest X-Ray 08/27/23 07:09 Impression: Worsening [id number] bibasilar pulmonary edema with increasing small bilateral pleural effusions. Stable support line. Labs Labs: Laboratory Results - last 24 hr 08/22/23 08/26/23 08/27/23 04:40 17:07 13:41 WBC RBC Hgb Hct MCV MCH MCHC RDW Plt Count MPV PT 15.3 H INR 1.1 Sodium Potassium Chloride Carbon Dioxide Anion Gap BUN Creatinine Estim Creat Clear Calc Estimated GFR Glucose POC Capillary Glucose Calcium Phosphorus Albumin Abnorm Protein Band 1 Not Reportable Abnorm Protein Band 3 Not Reportable Lipase Random Vancomycin Hep B Core Total Ab Non-reactive 08/27/23 08/27/23 08/28/23 16:52 20:19 04:42 WBC 5.9 RBC 2.46 L Hgb 7.5 L Hct 23.2 L MCV 94.3 MCH 30.5 MCHC 32.3 RDW 17.5 H Plt Count 251 MPV 9.9 PT INR Sodium 137 Potassium 4.4 Chloride 104 Carbon Dioxide 27 Anion Gap 6 BUN 22 H D Creatinine 7.70 H Estim Creat Clear Calc 9 Estimated GFR 7 L Glucose 100 POC Capillary Glucose 107 H 140 H Calcium 9.1 Phosphorus 3.5 Albumin 3.0 L Abnorm Protein Band 1 Abnorm Protein Band 3 Lipase 189 Random Vancomycin 13.8 Hep B Core Total Ab 08/28/23 07:59 WBC RBC Hgb Hct MCV MCH MCHC RDW Plt Count MPV PT INR Sodium Potassium Chloride Carbon Dioxide Anion Gap BUN Creatinine Estim Creat Clear Calc Estimated GFR Glucose POC Capillary Glucose 91 Calcium Phosphorus Albumin Abnorm Protein Band 1 Abnorm Protein Band 3 Lipase Random Vancomycin Hep B Core Total Ab
[2023-08-28 12:44] LABS: Glucose Point of Care 86 mg/dl (65-105)
--- NOTE | 2023-08-28 13:20 | PC.NURSE ---
To OR per [Jake], IV [ ]. Report given to [Tyrone ].
[2023-08-28] MEDS: SODIUM CHLORIDE 0.9% IV 500 ML 30 ML IV CONT (13:30)
--- NOTE | 2023-08-28 13:56 | WPDANESEPPF ---
Anes - Initial Pre Proc Eval Procedure: Operation Date: 08/28/23 14:30 Proposed Procedures p Insertion Tunneled Dialysis Catheter, Removal Miles Dialysis Catheter - Hussein Mcintyre DO Date/Time: 08/28/23 13:56 Surgeon: Cari Mendoza MD Pre Op Diagnosis: ARF,Hyperkalemia,Metabolic Acidosis,Pancreatitis Patient Data Age: 57 Gender: M Height: 1.68 m Weight: 72.8 kg Last Vital Signs Temp 37.3 C 08/28/23 13:37 Pulse 99 08/28/23 13:37 Resp 16 08/28/23 13:37 BP 157/85 H 08/28/23 13:37 Pulse Ox 95 08/28/23 13:37 O2 Del Method Room Air 08/28/23 13:37 O2 Flow Rate 0 08/28/23 09:26 FiO2 0 08/28/23 09:26 Allergies Allergy/AdvReac Type Severity Reaction Status Date / Time No Known Allergies Allergy Verified 08/19/23 21:33 Home Medications Medication Instructions Recorded Confirmed Type gabapentin 300 mg capsule 300 mg PO TID 08/20/23 08/20/23 History losartan 50 mg-hydrochlorothiazide 1 tablet PO DAILY 08/20/23 08/20/23 History 12.5 mg tablet metformin 500 mg tablet,extended 1 mg PO BID 08/20/23 08/20/23 History release 24 hr rosuvastatin 20 mg tablet 20 mg PO DAILY 08/20/23 08/20/23 History Laboratory Tests 08/22/23 08/26/23 08/27/23 04:40 17:07 13:41 WBC RBC Hgb Hct MCV MCH MCHC RDW Plt Count MPV PT 15.3 H Seconds (11.1-14.7) INR 1.1 Sodium Potassium Chloride Carbon Dioxide Anion Gap BUN Creatinine Estim Creat Clear Calc Estimated GFR Glucose POC Capillary Glucose Calcium Phosphorus Albumin Abnorm Protein Band 1 Not Reportable Abnorm Protein Band 3 Not Reportable Lipase Random Vancomycin Hep B Core Total Ab Non-reactive (NON-REACTIVE) 08/27/23 08/27/23 08/28/23 16:52 20:19 04:42 WBC 5.9 K/mm3 (4.5-10.0) RBC 2.46 L M/mm3 (4.6-6.20) Hgb 7.5 L g/dL (14.0-18.0) Hct 23.2 L % (42.0-52.0) MCV 94.3 fl (80-100) MCH 30.5 pg (26-34) MCHC 32.3 g/dl (32-36) RDW 17.5 H % (11.5-14.5) Plt Count 251 k/mm3 (150-375) MPV 9.9 fl (7.4-10.4) PT INR Sodium 137 mmol/L (137-145) Potassium 4.4 mmol/L (3.4-5.0) Chloride 104 mmol/L (98-107) Carbon Dioxide 27 mmol/L (22-30) Anion Gap 6 mmol/L (4-12) BUN 22 H D mg/dL (9-20) Creatinine 7.70 H mg/dL (0.7-1.3) Estim Creat Clear Calc 9 ml/min Estimated GFR 7 L (59 - ) Glucose 100 mg/dL (65-110) POC Capillary Glucose 107 H mg/dl 140 H mg/dl (65-105) (65-105) Calcium 9.1 mg/dL (8.4-10.2) Phosphorus 3.5 mg/dL (2.5-4.5) Albumin 3.0 L g/dL (3.5-5.1) Abnorm Protein Band 1 Abnorm Protein Band 3 Lipase 189 U/L (23-300) Random Vancomycin 13.8 ug/mL (10-20) Hep B Core Total Ab 08/28/23 08/28/23 07:59 12:41 WBC RBC Hgb Hct MCV MCH MCHC RDW Plt Count MPV PT INR Sodium Potassium Chloride Carbon Dioxide Anion Gap BUN Creatinine Estim Creat Clear Calc Estimated GFR Glucose POC Capillary Glucose 91 mg/dl 86 mg/dl (65-105) (65-105) Calcium Phosphorus Albumin Abnorm Protein Band 1 Abnorm Protein Band 3 Lipase Random Vancomycin Hep B Core Total Ab Patient hx anesthesia problems: none Family hx anesthesia problems: none Results Review: All pre-operative results and documents have been reviewed as part of the pre-operative evaluation. [facility] Past Medical History Medical History Alcoholism Diabetes mellitus Diabetic neuropathy Essential hypertension Hx of osteomyelitis Lumbar spine Jun 2023 Hyperlipidemia Sciatica associated with disorder of lumbar spine Surgical History Surgical History History of lumbar surgery Family History Family History Mother Diabetes mellitus Father Alcoholism Social History Social History Social History: Alcohol use as above. He lives in [facility]. He is . He lives alone. He has dogs. He wishes to make himself a DNR although currently he is full code. Given his mild confusion, will continue full code status until he is more awake and alert enough to make informed decision. He nominates his son to be the individual who would make medical decisions for him if he is unable. Hx of MDMA use when young but no hx of IVDU. Smoking status: Light tobacco smoker Tobacco type: cigars Alcohol intake: current Drinks per week: 100 Do You Feel Safe in your Home?: Yes Lack of Transportation: No Lack of Food: Never True Current Housing: I Have Housing Concerned About Future Housing: No Difficulty Paying Gas/Electric Bills: No Difficulty Paying for Meds: No Currently Unemployed: No Education: Decline to Answer Difficulty w/ Childcare or Family Care: No Spiritual care concerns: No Anes - Eval Final PreProcedure Day of Procedure 08/28/23 13:56 Patient weight: normal Heart: regular rate and rhythm Lungs: clear to auscultation Airway: Mallampati scale class II Neurological: alert and oriented Last oral intake: >/= 8 hours ASA classification: IV Emergent: no Anesthetic plan: proceed Anesthesia type and monitoring: general GIVS and standard monitoring Results Review: All pre-operative results and documents have been reviewed as part of the pre-operative evaluation. Informed Consent: The patient's anesthetic plan and its attendant risks and benefits were discussed with the patient/family/POA. Questions were solicited and answers provided to the satisfaction of the patient/family/POA.
[2023-08-28] MEDS: ceFAZolin 2 GM/D5W 50 ML 2 GM/50 ML BAG IVPB (14:45)
--- NOTE | 2023-08-28 15:38 | W.PM.PROC2 ---
Procedure Note - Detailed Date of Procedure 08/28/23 Pre-op Diagnosis Acute renal failure Post-op Diagnosis Same Procedure Performed Left internal jugular tunneled dialysis catheter placement using ultrasound and fluoroscopic guidance Surgeon Hussein Mcintyre, DO Anesthesia MAC and Local (1% lidocaine with epinephrine) Indications Acute renal failure Findings SonoSite ultrasound was used to identify the left internal jugular vein. This was visualized as a compressible vessel just lateral to the pulsatile carotid artery. The left internal jugular vein appeared slightly small but was still large enough to perform the procedure. An 18 gauge introducer needle was advanced under ultrasound guidance directly into the lumen of the vein. Dark nonpulsatile blood was aspirated. Fluoroscopy was then used to guide advancement of the guidewire followed by the dilators and sheath. The final fluoroscopic images demonstrated the catheter tip in the distal SVC and no kinks along its path. Description of Procedure Procedure as well as risks, benefits, and alternatives were discussed with patient. Written consent was obtained and placed in chart prior to procedure. Patient was brought back to surgical suite. Placed supine on operating table. Time-out was done confirm patient procedure. IV sedation was then administered by the Anesthesia Department. His chest and neck area was prepped and draped in sterile fashion using chlorhexidine prep. Patient was placed in Trendelenburg position. SonoSite ultrasound was used to identify the left internal jugular vein. It was visualized as a compressible vessel just lateral to the carotid artery. 1% lidocaine with epinephrine was infiltrated directly over the vessel under ultrasound guidance. An 18 gauge introducer needle was then advanced under ultrasound guidance directly into the left internal jugular vein. Dark nonpulsatile blood was aspirated. A 0.035 in guidewire was then advanced through the needle under fluoroscopic guidance. The guidewire was visualized advancing all the way down into the superior vena cava. 1% lidocaine with epinephrine was then infiltrated on the left anterior chest and along the tract up to the guidewire insertion site. A 5 mm incision was made with a 15 blade scalpel. A small jennifer incision was then also made at the insertion site at the neck. The tunneler was then advanced from the chest incision up to the neck incision and the catheter tubing was brought up through this tract. The dilator and sheath were then advanced over the guidewire under fluoroscopic visualization. The dilator and guidewire were then removed leaving the sheath in place. The catheter tubing was then advanced through the sheath under fluoroscopic guidance. The sheath was unsnapped and carefully peeled away. The catheter tubing was released underneath the neck incision. Fluoroscopy was used to confirm proper placement of the catheter tubing and no kinks along its path. The catheter was then hep-locked with Hep-Lock solution. The skin of the incisions was then approximated using 4-0 Monocryl subcuticular suture. Exofin glue was then applied at the neck incision and 2x2 gauze and Tegaderm drassing applied at the chest. The patient was then awakened from anesthesia and transferred to recovery. Implants 28 cm DuraFlow2 dialysis catheter Estimated Blood Loss 5 Urine Output 110 Complications No immediate complications Condition Stable Disposition Floor [facility] - Charge Forward: [facility]
[2023-08-28 17:18] LABS: Glucose Point of Care 97 mg/dl (65-105)
[2023-08-28] MEDS: hydrALAZINE HCL 25 MG TABLET 50 MG PO (17:21)
--- NOTE | 2023-08-28 17:37 | PC.NURSE ---
Returned from OR per [ ]. Report received from [cat]. Lluvia HERNADEZ took report for this nurse.
[2023-08-28 23:23] LABS: IFOB Positive Control Positive; Immunochemical Fecal Occult Bl Negative (N)
[2023-08-28 23:37] LABS: Glucose Point of Care 146 mg/dl (65-105)
[2023-08-29] VITALS (21 sets, daily range): BP systolic 154–189; BP diastolic 75–108; PULSE 90–106; RESP 18–20; TEMP 36.7–37.2; O2SAT 92–100
[2023-08-29 05:55] LABS: Hematocrit 24.9 % (42.0-52.0); Hemoglobin 8.1 g/dL (14.0-18.0); Mean Corpuscular HGB Conc 32.5 g/dl (32-36); Mean Corpuscular Hemoglobin 30.7 pg (26-34); Mean Corpuscular Volume 94.3 fl (80-100); Mean Platelet Volume 10.1 fl (7.4-10.4); Platelet Count Result 272 k/mm3 (150-375); Red Blood Count 2.64 M/mm3 (4.6-6.20); White Blood Count 6.8 K/mm3 (4.5-10.0)
[2023-08-29 06:09] LABS: Albumin Level 3.2 g/dL (3.5-5.1); Anion Gap 7 mmol/L (4-12); Blood Urea Nitrogen 14 mg/dL (9-20); Calcium 8.9 mg/dL (8.4-10.2); Carbon Dioxide 27 mmol/L (22-30); Chloride 103 mmol/L (98-107); Estimated CRCL calculation 13 ml/min; Estimated Glomerular Filt Rate 11; Glucose 102 mg/dL (65-110); Phosphorus 2.8 mg/dL (2.5-4.5); Sodium 137 mmol/L (137-145)
[2023-08-29 08:09] LABS: Glucose Point of Care 102 mg/dl (65-105)
[2023-08-29] MEDS: FOLIC ACID 1 MG TABLET PO (08:54)
[2023-08-29] MEDS: PANTOPRAZOLE 40 MG TABLET PO (08:54)
[2023-08-29] MEDS: ROSUVASTATIN 20 MG TABLET PO (08:54)
[2023-08-29] MEDS: THIAMINE HCL 100 MG TABLET PO (08:54)
--- NOTE | 2023-08-29 12:16 | P.PNNP_ITS ---
Progress Note: A&P Assessment and Plan (1) SANG (acute kidney injury): Code(s): N17.9 - Acute kidney failure, unspecified Status: Acute Assessment and Plan: * due to biopsy proven acute tubular necrosis * RENAL BIOPSY (08/26/23): acute tubular injury and diabetic glomerulopathy, class IIa * presumably normal renal function at baseline * creatinine on admission 16.5mg/dl associated with hyperkalemia and metabolic acidosis * evaluation to date: * CT of abd/pelvis - kidneys unremarkable * CPK okay * urine electrolytes non-prerenal * urine eosinophils negative * proteinuria noted * negative serologies noted * Uric, urine output between 100 and 125 per day * admission confusion/AMS related to uremia (given improvement following [employer]/dialysis). This has resolved. * ATN likely due to multifactorial etiology: * secondary to antibiotics (?) - high vancomycin level noted * ongoing use of metformin + ARB + HCTZ prior to admission * pancreatitis * nausea/vomiting/diarrhea * prerenal factors * HD under way * outpatient dialysis arrangements noted * He is hoping to go home today. Labs seem to be doing pretty well. As long as he is strong enough I have no objection to charge today. He has a lot of issues so the hospitalist will handle the discharge. * He is from [facility]. He will be taking a flight home the day after he is discharged whenever that is. (2) Acute hyperkalemia: Code(s): E87.5 - Hyperkalemia Status: Acute Assessment and Plan: * resolved (3) Metabolic acidosis: Code(s): E87.20 - Acidosis, unspecified Status: Acute Assessment and Plan: * corrected * Hopefully dialysis will keep this at bay. (4) Acute pancreatitis: Qualifiers: Acute pancreatitis complication: unspecified Pancreatitis type: unspecified pancreatitis type Qualified Code(s): K85.90 - Acute pancreatitis without necrosis or infection, unspecified Code(s): K85.90 - Acute pancreatitis without necrosis or infection, unspecified Status: Acute Assessment and Plan: * improving * noted by history of abdominal pain, nausea, vomiting and diarrhea in association with elevated lipase * trending lipase levels * confirmed by CT scan -- no mention of gallbladder disease or gallstones * RUQ ultrasound and triglycerides okay * tolerating oral intake * pain control (5) Altered mental status: Code(s): R41.82 - Altered mental status, unspecified Status: Acute Assessment and Plan: * improved if not back to baseline * noted on admission * however, awake and alert for the most part but difficult noted providing history that led to admission * CT of brain negative * highly suspect related to uremic encephalopathy and SANG/ARF given improvement with dialytic intervention * follow mental status (6) Anemia: Code(s): D64.9 - Anemia, unspecified Status: Acute Assessment and Plan: * presumably due to acute illness and SANG/ARF * on Epogen with HD * follow trend of H/H (7) Essential hypertension: Code(s): I10 - Essential (primary) hypertension Status: Acute Assessment and Plan: * running high at this time * holding ARB and HCTZ given #1 * on oral hydralazine * changed amlodipine to nifedipine yesterday. It will take a few days for this to fully kick in. * Recently systolic has been running from 130-180. (8) Alcoholism: Code(s): F10.20 - Alcohol dependence, uncomplicated Status: Acute Assessment and Plan: * known long standing history * on thiamine and folate * no evidence of withdrawal (9) Hx of osteomyelitis: Code(s): Z87.39 - Personal history of other diseases of the musculoskeletal system and connective tissue Status: Acute Assessment and Plan: * reported history from Jun 2023 hospitalization * had been on outpatient IV antibiotics since that time * On Cefazolin now. * repeat culture data noted * He is off vancomycin. (10) Diabetes mellitus: Code(s): E11.9 - Type 2 diabetes mellitus without complications Status: Acute Assessment and Plan: * follow accu-cheks * glycemic control per hospitalists Not opposed to discharge after dialysis if otherwise medically stable and outpatient dialysis unit/schedule is finalized. Subjective Date/time seen: 08/29/23 12:16 Interval history: Patient is on dialysis and tolerating it well. He was seen at 11:45 a.m. Blood pressure still a bit high. We are aggressively removing fluid He has no chest pain or shortness of breath He is off oxygen. He is hoping to be discharged today per Exam Narrative: General: WD/WN male in NAD Heart: normal S1 and S2; no rub or gallop Lungs: clear bilaterally Abdomen: soft, mild TTP, positive bowel sounds Extremities: No edema Skin: no nodules or rash Objective Data Vital Signs Vital Signs: Vital Signs - 24 hr 08/28/23 12:30 08/28/23 13:37 08/28/23 12:45 Temperature 99.2 F Pulse Rate 94 99 93 Respiratory Rate 16 Blood Pressure 154/93 H 157/85 H 167/90 H Pulse Oximetry 95 Oxygen Delivery Room Air Oxygen Flow Rate 08/28/23 13:56 08/28/23 12:55 08/28/23 15:31 Temperature 97.7 F 97.4 F L Pulse Rate 95 93 108 H Respiratory Rate 18 22 H Blood Pressure 156/86 H 163/90 H 154/93 H Pulse Oximetry 95 95 Oxygen Delivery Simple Face Mask Oxygen Flow Rate 8 08/28/23 15:45 08/28/23 16:00 08/28/23 16:10 Temperature 98.0 F Pulse Rate 102 H 101 H 99 Respiratory Rate 18 16 14 Blood Pressure 158/89 H 164/83 H 159/82 H Pulse Oximetry 92 92 94 Oxygen Delivery Room Air Room Air Room Air Oxygen Flow Rate 08/28/23 16:22 08/28/23 16:35 08/28/23 16:45 Temperature Pulse Rate 97 95 100 Respiratory Rate 14 14 18 Blood Pressure 148/82 H 150/81 H 154/87 H Pulse Oximetry 94 95 94 Oxygen Delivery Room Air Room Air Room Air Oxygen Flow Rate 08/28/23 16:00 08/28/23 20:04 08/28/23 20:00 Temperature 97.5 F L Pulse Rate 97 98 Respiratory Rate 18 Blood Pressure 161/88 H Pulse Oximetry 97 Oxygen Delivery Room Air Oxygen Flow Rate 08/28/23 20:35 08/28/23 23:36 08/29/23 06:30 Temperature 99.3 F 98.4 F 98.4 F Pulse Rate 94 94 94 Respiratory Rate 18 20 18 Blood Pressure 165/87 H 160/91 H 154/81 H Pulse Oximetry 96 92 97 Oxygen Delivery Oxygen Flow Rate 08/29/23 08:00 08/29/23 09:18 08/29/23 09:18 Temperature 98.2 F 98.2 F Pulse Rate 95 101 H 96 Respiratory Rate 20 18 Blood Pressure 158/99 H 183/99 H 175/108 H Pulse Oximetry 92 Oxygen Delivery Oxygen Flow Rate 08/29/23 09:30 08/29/23 09:45 08/29/23 10:00 Temperature Pulse Rate 99 91 90 Respiratory Rate Blood Pressure 180/106 H 172/89 H 168/106 H Pulse Oximetry Oxygen Delivery Oxygen Flow Rate 08/29/23 10:15 08/29/23 10:30 Temperature Pulse Rate 93 93 Respiratory Rate Blood Pressure 167/97 H 170/94 H Pulse Oximetry Oxygen Delivery Oxygen Flow Rate Intake/Output Intake/Output: Intake & Output 08/26/23 08/27/23 08/28/23 08/29/23 23:59 23:59 23:59 23:59 Intake Total 540 960 460.5 690 Output Total 100 2160 1610 125 Balance 440 -1200 -1149.5 565 Meds/Results Medications: Active Medications Generic Name Dose Route Start Last Admin Trade Name Freq PRN Reason Stop Dose Admin Acetaminophen 650 mg 08/24/23 14:06 08/28/23 08:37 Acetaminophen 325 Mg Tablet PO 650 mg Q6H PRN Administration Pain Rated 5 or Less Hydrocodone Bitart/Acetaminophen 1 tab 08/22/23 17:28 08/28/23 20:04 Hydrocodone/Acetaminophen (*Crx) 5-325 Mg Tablet PO 1 tab Q6H PRN Administration Pain Rated 6 or Greater Dextrose 12.5 gm 08/20/23 02:25 Dextrose 50% 25 Gm/50 Ml Syringe IV PUSH PRN PRN Hypoglycemia Protocol Epoetin Toñito 20,000 units 08/29/23 20:00 Epoetin Toñito 20,000 Units/Ml Vial IV PUSH 08/29/23 20:01 ONCE ONE Folic Acid 1 mg 08/24/23 09:00 08/29/23 08:54 Folic Acid 1 Mg Tablet PO 1 mg DAILY ANUJA Administration Glucagon 1 mg 08/20/23 02:25 Glucagon For Inj 1 Mg Vial IM PRN PRN Hypoglycemia Protocol Glucose 15 gm 08/20/23 02:25 Glucose Oral Gel 15 Gm Of Glucse In 37.5 Gm Tube PO PRN PRN Hypoglycemia Protocol Hydralazine HCl 10 mg 08/20/23 11:02 08/26/23 09:51 Hydralazine Hcl 20 Mg/Ml Vial IV PUSH 10 mg Q8H PRN Administration Blood Pressure - High Hydralazine HCl 25 mg 08/29/23 09:00 Hydralazine Hcl 25 Mg Tablet PO BID ANUJA Dextrose 1,000 mls @ 100 mls/hr 08/20/23 02:25 Dextrose 5% 1,000 Ml IVPB PRN PRN Hypoglycemia Protocol Albumin Human 50 mls @ 999 mls/hr 08/21/23 11:04 Albutein IVPB 09/20/23 11:03 Q10M PRN HYPOTENSION Insulin Aspart 2 - 5 units 08/27/23 17:00 08/29/23 08:55 Insulin Aspart (*Bkc) 100 Units/Ml SUB-Q Not Given TIDWM ANUJA Protocol Metoprolol Tartrate 25 mg 08/27/23 21:00 08/28/23 20:04 Metoprolol Tartrate 25 Mg Tablet PO 25 mg Q12HR ANUJA Administration Nifedipine 30 mg 08/29/23 09:00 Nifedipine 30 Mg Tab.Er.24 PO QAM ANUJA Ondansetron HCl 4 mg 08/20/23 02:20 08/27/23 19:45 Ondansetron Inj 4 Mg/2 Ml Vial IV PUSH 4 mg Q4H PRN Administration Nausea Ondansetron HCl 4 mg 08/28/23 13:57 Ondansetron Inj 4 Mg/2 Ml Vial IV PUSH ONCE PRN Nausea Pantoprazole Sodium 40 mg 08/23/23 09:00 08/29/23 08:54 Pantoprazole 40 Mg Tablet PO 40 mg QAM ANUJA Administration Rosuvastatin Calcium 20 mg 08/24/23 09:00 08/29/23 08:54 Rosuvastatin 20 Mg Tablet PO 20 mg DAILY ANUJA Administration Sodium Chloride 20 ml 08/19/23 21:40 Central Line Flush IV PUSH PRN PRN after blood draws Sodium Chloride 10 ml 08/19/23 21:40 Central Line Flush IV PUSH PRN PRN with TPN bag changes Sodium Chloride 10 ml 08/19/23 22:00 08/29/23 06:19 Central Line Flush IV PUSH Not Given Q8HR ANUJA Sodium Chloride 10 ml 08/21/23 14:00 08/29/23 06:19 Central Line Flush IV PUSH Not Given Q8HR ANUJA Sodium Chloride 20 ml 08/21/23 10:22 08/23/23 03:51 Central Line Flush IV PUSH 20 ml PRN PRN Administration after blood draws Thiamine HCl 100 mg 08/24/23 09:00 08/29/23 08:54 Thiamine Hcl 100 Mg Tablet PO 100 mg QAM ANUJA Administration Radiology Results: ITS Impressions Abdomen/Pelvis CT 08/19/23 22:34 IMPRESSION: 1. Acute pancreatitis. 2: Severe degenerative changes at L4-5 and L5-S1 with deformity of the endplates at L4-5. Consider discitis/osteomyelitis in the appropriate clinical setting. If there is concern for discitis, further evaluation with MRI lumbar spine without and with contrast recommended. Head CT 08/20/23 05:43 Impression: No significant abnormality seen. Upper Quadrant Ultrasound 08/20/23 18:10 IMPRESSION: 1: Mild intrahepatic biliary dilatation. Abdomen X-Ray 08/22/23 19:52 IMPRESSION: 1. Normal bowel gas pattern. Renal Biopsy Ultrasound 08/26/23 11:59 IMPRESSION: 1. Ultrasound-guided random left kidney core needle biopsy. Central Venous Line 08/28/23 15:33 IMPRESSION: 1. New central line tip at superior cavoatrial junction. Chest X-Ray 08/28/23 16:10 IMPRESSION: 1. No pneumothorax post placement of a left internal jugular central venous dialysis catheter with distal tip at the superior cavoatrial junction. 2. Mild pulmonary edema and small bilateral pleural effusions. Labs Labs: Laboratory Results - last 24 hr 08/28/23 08/28/23 08/28/23 12:41 17:12 20:36 WBC RBC Hgb Hct MCV MCH MCHC RDW Plt Count MPV Sodium Potassium Chloride Carbon Dioxide Anion Gap BUN Creatinine Estim Creat Clear Calc Estimated GFR Glucose POC Capillary Glucose 86 97 146 H Calcium Phosphorus Albumin Stl Occult Blood (IFOB) 08/28/23 08/29/23 08/29/23 23:06 05:31 07:53 WBC 6.8 RBC 2.64 L Hgb 8.1 L Hct 24.9 L MCV 94.3 MCH 30.7 MCHC 32.5 RDW 17.0 H Plt Count 272 MPV 10.1 Sodium 137 Potassium 4.0 Chloride 103 Carbon Dioxide 27 Anion Gap 7 BUN 14 D Creatinine 5.40 H Estim Creat Clear Calc 13 Estimated GFR 11 L Glucose 102 POC Capillary Glucose 102 Calcium 8.9 Phosphorus 2.8 Albumin 3.2 L Stl Occult Blood (IFOB) Negative [facility] Follow-up Billing Additional Procedures Additional Procedure: [id number] Hemodialysis
[2023-08-29] MEDS: hydrALAZINE HCL 25 MG TABLET PO (12:56)
[2023-08-29] MEDS: METOPROLOL TARTRATE 25 MG TABLET PO (12:57)
[2023-08-29] MEDS: NIFEdipine 30 MG TAB.ER.24 PO (12:57)
[2023-08-29 12:59] LABS: Glucose Point of Care 103 mg/dl (65-105)
[2023-08-29] MEDS: HYDROcodone/acetaminophen (*CRX) 5-325 MG TABLET 1 TAB PO (12:59)
--- NOTE | 2023-08-29 15:02 | PM.DS ---
DS: Admitting Diagnosis Discharge Date August 29, 2023 Admitting Diagnosis Abdominal pain DS: Discharge Diagnosis Discharge Diagnosis (1) Anemia: Code(s): D64.9 - Anemia, unspecified Status: Acute (2) SANG (acute kidney injury): Code(s): N17.9 - Acute kidney failure, unspecified Status: Acute (3) Hx of osteomyelitis: Code(s): Z87.39 - Personal history of other diseases of the musculoskeletal system and connective tissue Status: Acute (4) Altered mental status: Code(s): R41.82 - Altered mental status, unspecified Status: Acute (5) Essential hypertension: Code(s): I10 - Essential (primary) hypertension Status: Acute (6) Diabetes mellitus: Code(s): E11.9 - Type 2 diabetes mellitus without complications Status: Acute (7) Alcoholism: Code(s): F10.20 - Alcohol dependence, uncomplicated Status: Acute (8) Acute renal failure: Qualifiers: Acute renal failure type: unspecified Qualified Code(s): N17.9 - Acute kidney failure, unspecified Code(s): N17.9 - Acute kidney failure, unspecified Status: Acute (9) Metabolic acidosis: Code(s): E87.20 - Acidosis, unspecified Status: Acute (10) Acute hyperkalemia: Code(s): E87.5 - Hyperkalemia Status: Acute (11) Acute pancreatitis: Qualifiers: Acute pancreatitis complication: unspecified Pancreatitis type: unspecified pancreatitis type Qualified Code(s): K85.90 - Acute pancreatitis without necrosis or infection, unspecified Code(s): K85.90 - Acute pancreatitis without necrosis or infection, unspecified Status: Acute (12) Lactic acidosis: Code(s): E87.20 - Acidosis, unspecified Status: Acute DS: Summary Hospital Course Hospital Course: 57-year-old male with a history of alcoholism, hypertension, [id number] diabetes mellitus, lumbar vertebral osteomyelitis presenting on 08/20/2023 with complaint of abdominal pain. The patient was found to have acute pancreatitis which is likely related to his alcoholism. He was treated conservatively and this was effective. On day of discharge 08/29/2023 he is stable for discharge to home. As for his alcoholism he was counseled and he agreed to cut down even more, advised to practice complete abstinence. Patient preferred to seek out therapy/resources on his own. He did have transient episode of altered mental status which was thought to be due to his uremia and metabolic acidosis. He will be sent home on folic acid and thiamine supplements. The patient has a history of hypertension and at home takes losartan hydrochlorothiazide combination. That has been discontinued and in place he is started on hydralazine, Norvasc, metoprolol. This did effectively bring his blood pressure to an acceptable measure. Patient presented with lactic acidosis/metabolic anion gap acidosis likely related to severe renal disease and pancreatitis. This did resolve. His course was complicated by renal failure. In the middle of June 2023 patient was found to have lumbar spine osteomyelitis may have been related to his lumbar surgery in March. He was on IV cefepime and vancomycin twice per day and was set to have that completed beginning of August. 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 In fact, she was administering this is IV medications while on the road as he travels for work. Follows up with his primary care, assistant director of residence life, infectious disease specialist and more in [place]. Patient reports no pain in the back fever or chills and since his antibiotics have completed a full course and considering vancomycin may have placed the patient in renal failure he will not continue these and he reports he has follow-up next week with his infectious disease specialist. PICC line he was using for these antibiotics have been removed and in place of that a left-sided tunneled dialysis catheter was placed on 08/28/23. The patient successfully underwent dialysis on 08/28/2023 without complication. Renal biopsy on 08/25 demonstrating acute tubular injury and diabetic glomerulonephropathy class 2A. He has been set up for dialysis in his home state and cleared by Nephrology to be discharged and resume dialysis Thursday or Thursday. The patient is arranging a flight home tomorrow. His electrolytes are currently within normal limits as is his volume status. Adverse effects risk and benefits of medications and therapies discussed with the patient to which he understands and agrees with this plan. The patient was full code during his admission. Time Spent with Patient Time attestation: Total time spent providing and/or coordinating discharge services: Exam Const: General: cooperative and no acute distress Resp: Effort & Inspection: normal respiratory effort Auscultation: clear to auscultation bilaterally Cardio: Rate: regular rate Rhythm: regular rhythm Heart sounds: S1 normal heart sound present and S2 normal heart sound present GI: GI Palp: No abdominal tenderness Auscultation: normal bowel sounds DS: Data Data Completed and Pending Completed studies during hospitalization: Pending at discharge 08/26/23 11:17 Surgical [PTH] Routine Labs on day of discharge: Labs from last 24 hours 08/29/23 08/29/23 08/29/23 12:53 07:53 05:31 WBC 6.8 RBC 2.64 L Hgb 8.1 L Hct 24.9 L MCV 94.3 MCH 30.7 MCHC 32.5 RDW 17.0 H Plt Count 272 MPV 10.1 Sodium 137 Potassium 4.0 Chloride 103 Carbon Dioxide 27 Anion Gap 7 BUN 14 D Creatinine 5.40 H Estim Creat Clear Calc 13 Estimated GFR 11 L Glucose 102 POC Capillary Glucose 103 102 Calcium 8.9 Phosphorus 2.8 Albumin 3.2 L Stl Occult Blood (IFOB) 08/28/23 08/28/23 08/28/23 23:06 20:36 17:12 WBC RBC Hgb Hct MCV MCH MCHC RDW Plt Count MPV Sodium Potassium Chloride Carbon Dioxide Anion Gap BUN Creatinine Estim Creat Clear Calc Estimated GFR Glucose POC Capillary Glucose 146 H 97 Calcium Phosphorus Albumin Stl Occult Blood (IFOB) Negative Discharge Plan Discharge Attending physician on discharge: Mary Milan Consulting providers: Ashley Rizvi; Dayron Carmona Discharging Clinician: Mary Milan Patient Disposition: Home, Self-Care Activity: september shower Diet: low fat Discharge Instructions: Per Care Coordination Patient has out patient Dialysis arranged at [place], [place] Thursday, and Thursday at 2:50 pm at [place] [id number] Patient to arrive for first dialysis treatment on September 01 at 2 pm. Please bring ID card and insurance cards with you. Monitor your fluid and potassium intake upon discharge. Patient Instructions: Antibiotic Form, Dialysis Diet (GEN) Stand Alone Forms: General Discharge Information Follow-up/Referrals: Kennedi Junior MD [Other] Discharge Medications: New folic acid 1 mg Tablet 1 mg PO DAILY Qty: 30 0RF hydralazine 25 mg Tablet 25 mg PO BID Qty: 60 0RF metoprolol tartrate 25 mg Tablet 25 mg PO Q12HR Qty: 60 0RF nifedipine [Procardia XL] 30 mg Tablet Extended Release 24hr 30 mg PO QAM Qty: 30 0RF thiamine HCl (vitamin B1) [Vitamin B-1] 100 mg Tablet 100 mg PO QAM Qty: 30 0RF Continued gabapentin 300 mg capsule 300 mg PO TID metformin 500 mg tablet extended release 24 hr 1 mg PO BID rosuvastatin 20 mg tablet 20 mg PO DAILY Discontinued losartan-hydrochlorothiazide 50-12.5 mg tablet 1 tablet PO DAILY Date of admission: 08/20/23 11:08 Primary Care Provider: Kennedi Junior MD Admitting Provider: Cari Mendoza V. Attending physician on admission: Cari Mendoza V. Condition: Serious
== END 2023-08-29 16:10 | disposition home or self-care (01) | DRG 673 ==
LOC: ANHED 08-20 00:48 → ANHIMU 08-20 03:17 → ANH3MEDSUR 08-23 15:53
PROVIDERS: Emergency Medicine; Family Medicine; Internal Medicine; Internal Medicine Nephrology; Nurse Practitioner Acute Care; Surgery; Admitting Provider Internal Medicine; Emergency Provider Physician Assistant; Visit Provider General Practice
PROC: 0JH63XZ Insertion of Tunneled Vascular Access Device into Chest Subcutaneous Tissue and Fascia, Percutaneous Approach (ICD-10-PCS; CPT 36908; principal; 2023-08-28 14:30)
DX: N17.0 Acute kidney failure with tubular necrosis (principal); K85.20 Alcohol induced acute pancreatitis without necrosis or infection; E87.20 Acidosis, unspecified; M46.26 Osteomyelitis of vertebra, lumbar region; E87.5 Hyperkalemia; I10 Essential (primary) hypertension; E11.40 Type 2 diabetes mellitus with diabetic neuropathy, unspecified; E11.21 Type 2 diabetes mellitus with diabetic nephropathy; E78.5 Hyperlipidemia, unspecified; D63.8 Anemia in other chronic diseases classified elsewhere; F10.20 Alcohol dependence, uncomplicated; Z72.0 Tobacco use
CPT/HCPCS: 36415; 36600; 50200; 70450; 71045; 74019; 74176; 76705; 76942; 77001; 80048; 80053; 80061; 80069; 80202; 80307; 81001; 81050; 82274; 82375; 82533; 82550; 82570; 82805; 82948; 83036; 83050; 83520; 83605; 83690; 83735; 83883; 84100; 84145; 84155; 84156; 84165; 84166; 84300; 84443; 84540; 85025; 85027; 85610; 85730; 85999; 86036; 86038; 86160; 86225; 86704; 86705; 86706; 86803; 87040; 87340; 87641; 88300; 88305; 88313; 88329; 88341; 88342; 88346; 88348; 88350; 93005; 96361; 96365; 96374; 96375; 99285; A9270; C1750; C1752; C9113; G0257; G0378; J0360; J0612; J0690; J1170; J1644; J1815; J2060; J2270; J2405; J2704; J3010; J3411; J7030; J7040; Q4081; Q5105